=== PATIENT | female | born 1980 | race Caucasian/White ===

== ENCOUNTER 2024-12-08 00:26 | Inpatient (IN) | payer MEDICARE, OTHER, SELFPAY ==
[2024-12-07 19:56] VITALS: BP 141/88
[2024-12-07 20:33] LABS: ALT (SGPT) 173 U/L (0-35); AST (SGOT) 239 U/L (14-36); Albumin 3.4 g/dl (3.5-5.0); Alkaline Phosphatase 806 U/L (38-126); Blood Urea Nitrogen 11 mg/dl (7-17); Calcium 9.0 mg/dl (8.4-10.2); Carbon Dioxide 27 mmol/L (22-30); Chloride 98 mmol/L (98-107); Glucose 135 mg/dl (70-99); Potassium 4.6 mmol/L (3.5-5.1); Sodium 131 mmol/L (135-145); Total Protein 6.7 g/dl (6.3-8.2); eGFR > 60.00
[2024-12-07 20:42] LABS: Hematocrit 24.5 % (37.0-47.0); Hemoglobin 7.7 g/dL (12.0-16.0); Mean Corp Hgb Conc. 31.4 g/dL (33.0-37.0); Mean Corpuscular Volume 78.8 fL (81.0-99.0); Nucleated Red Blood Cells % 0 %; Platelet Count 694 10^3/uL (130-400); Red Cell Dist. Width 16.3 % (11.5-14.5)
[2024-12-07 20:58] LABS: Lipase 209 U/L (23-300)
[2024-12-07 21:01] VITALS: BMI 24.3
[2024-12-07 21:54] LABS: INR 0.98; PT 13.3 Sec (11.4-14.6)
[2024-12-07 22:58] LABS: Body Fluid Second Tech ASW
--- NOTE | 2024-12-07 23:05 | ED.GENMED ---
History of Present Illness
General
Chief Complaint: Abdominal Symptoms
Source: patient and spouse
Exam Limitations: none
Time Seen by Provider: 12/07/24 20:35
Nursing documentation reviewed up to this point in time: agreed with
History of Present Illness
History of Present Illness:
44-year-old female with history of metastatic breast cancer who presents to the emergency department for evaluation of abdominal pain. Patient reports that she had similar symptoms in July and was admitted with sepsis and had large-volume
paracentesis at that time. She says that she has not had reaccumulation of fluid or needed repeat paracentesis but over the past week developed increasing abdominal bloating and pain. No fever. No vomiting and in fact has had reasonable appetite.
No diarrhea. No urinary symptoms reported.
Review of Systems
Review of Systems
All Other Systems: ROS reviewed and negative except as documented in HPI and ROS
Constitutional: Denies fever
Respiratory: Denies trouble breathing
Cardiac: Denies chest pain
ABD/GI: Reports abdominal pain; Denies nausea, vomiting or diarrhea
: Denies flank pain
Musculoskeletal: Denies neck pain or back pain
Neurological: Denies headache
Phy Exam
Physical Exam
Physical Exam:
General: Awake, alert, oriented x3; no acute distress
Head: Normocephalic, atraumatic
Eyes: Conjunctiva normal, sclera anicteric
Throat: Airway intact
Neck: Trachea midline, no JVD
Lungs: Clear to auscultation bilaterally, no wheezing, rales, rhonchi
Heart: Tachycardia with regular rhythm, no murmurs, gallops, or rubs
Abd: Sof distended with positive fluid wave, diffusely tender to palpation
Neuro: Grossly intact
Extremities: Warm and well-perfused
Scores
Heart Failure Risk
Heart Failure Risk Score: Not Applicable
Heart Score for Chest Pain Patients
STEMI patient?: Not applicable
Withdrawal Assessment of Alcohol
Withdrawal Assessment Completed?: Not applicable
Sepsis
Sepsis Screening
Sepsis Assessment: Sepsis
Sepsis Screen
Sepsis Screen: Sepsis
Date: 12/08/24
Time: 00:23
Course
Orders/Labs/Results
Orders:
Orders
12/07/24 20:11
Complete Blood Count/With Diff Urgent
Comprehensive Metabolic Panel Urgent
Lipase Urgent
Comment: ADD ON
12/07/24 20:43
Add On- LAB Urgent
Tests Added?: lipase
12/07/24 21:30
Prothrombin Time Urgent
12/07/24 22:41
Body Fluid Albumin Routine
Fluid Source: Peritoneal (Ascites)
Date Specimen was Collected: 12/07/24
Time Specimen was Collected: 22:30
Body Fluid Amylase Routine
Fluid Source: Peritoneal (Ascites)
Date Specimen was Collected: 12/07/24
Time Specimen was Collected: 22:30
Body Fluid Cell Count Routine
What is the Body Fluid: peritoneal fluid
Date Specimen was Collected: 12/07/24
Time Specimen was Collected: 22:30
Comment: post procedure
Body Fluid LDH Routine
Fluid Source: Peritoneal (Ascites)
Date Specimen was Collected: 12/07/24
Time Specimen was Collected: 22:30
Body Fluid Protein Routine
Fluid Source: Peritoneal (Ascites)
Date Specimen was Collected: 12/07/24
Time Specimen was Collected: 22:30
Fluid Culture with Gram Stain Routine
DANIELITO Source: Peritoneal Fluid
Specimen Description:
Date Specimen was Collected: 12/07/24
Time Specimen was Collected: 22:30
Comment: Post Procedure
12/07/24 23:05
CefTRIAXone [Rocephin] 2,000 mg IV NOW STA
12/07/24 23:08
0.9% Sodium Chloride 1000 ml [Nss] 1,000 ml IV BOLUS
12/07/24 23:14
Bedside Cytology Routine
Date Specimen was Collected: 12/07/24
Source: Peritoneal Fluid
Clinical Impression: malignant ascites
12/07/24 23:16
Electrocardiogram (*1) Urgent
Reason for Study: Abdominal Pain
EKG- Treatment ONCE
Sterile Water [Sterile Water For Injection] 20 ml .ROUTE .STK-MED
12/07/24 23:30
Lactate Level [Lactic Acid] Urgent
Blood Culture Q30M
DANIELITO Source: Blood/Venous
Specimen Description:
Blood Culture Q30M
DANIELITO Source: Blood/Venous
Specimen Description:
12/07/24 23:53
Admit/Transfer Patient As Directed
Co-Sign Provider:
Level of Care: Inpatient admission
Assign to:: Medical/Surgical
Physician / Group: Mike
Diagnosis: Malignant Ascites
Reason for Hospitalization: suspected bacterial peritonitis
Expected length of stay greater than two midnights?: Yes
ELOS- Estimated Length of Stay in days: 2
I certify the patient meets the requirements for IP care: Yes
PRN Pain Medication Management As Directed
May give lesser potent ordered pain med per pt: Yes
preference::
Protocol:: Medication orders for pain may be administered in a
manner that supports deferring to patient preference
when the pt is:
- Requesting an ordered lesser potent pain medication.
Least to most potent pain medications are defined
as: acetaminophen < NSAID < tramadol < opioids
(morphine, oxycodone, hydromorphone).
- Requesting a lesser dose of the same medication IF
ORDERED.
- Requesting a less intrusive route of administration
if both routes are prescribed by the provider (PO <
IV).
12/07/24 23:55
Code Status As Directed
Resuscitation Status: Full Code
Abnormal Lab Results
12/07/24
20:11
WBC 15.1 H 10^3/uL
(4.8-10.8)
RBC 3.11 L 10^6/uL
(4.20-5.40)
Hgb 7.7 L g/dL
(12.0-16.0)
Hct 24.5 L %
(37.0-47.0)
MCV 78.8 L fL
(81.0-99.0)
MCH 24.8 L pg
(27.0-31.0)
MCHC 31.4 L g/dL
(33.0-37.0)
RDW 16.3 H %
(11.5-14.5)
Plt Count 694 H 10^3/uL
(130-400)
Abs Immat Gran (auto) 0.1 H 10^3/uL
(0-0.05)
Absolute Neuts (auto) 11.1 H 10^3/uL
(1.4-6.5)
Absolute Monos (auto) 1.8 H 10^3/uL
(0.1-0.6)
Lymphocytes % 12.7 L %
(20.5-51.1)
Monocytes % 12.0 H %
(1.7-9.3)
Sodium 131 L mmol/L
(135-145)
Glucose 135 H mg/dl
(70-99)
AST 239 H U/L
(14-36)
ALT 173 H U/L
(0-35)
Alkaline Phosphatase 806 H U/L
(38-126)
Albumin 3.4 L g/dl
(3.5-5.0)
12/07/24 20:11
12/07/24 20:11
Vital Signs
Initial and Last Documented VS:
Initial Vital Signs
Temp Pulse Resp BP Pulse Ox
36.8 C 134 18 141/88 98
12/07/24 19:56 12/07/24 19:56 12/07/24 19:56 12/07/24 19:56 12/07/24 19:56
Last Documented Vital Signs
Temp Pulse Resp BP Pulse Ox
36.8 C 121 17 141/88 99
12/07/24 19:56 12/07/24 21:00 12/07/24 21:00 12/07/24 19:56 12/07/24 23:05
Procedures
Incision/Drainage/Joint Aspiration
Left Lower Abdomen:
Anethesia: 1% Lidocaine
Preparation: cleaned with Betadine
Type of procedure: drain (paracentesis)
Nature of site: other (ascites--paracentesis from LLQ abdominal site)
How much fluid was obtained?: number in mls (2500)
Fluid description: straw colored
Treatment: antibiotics started and bandaid applied
Additional information:
Paracentesis performed under usual sterile technique, 2500 cc removed. Band-Aid applied. Fluid sent for Gram stain/culture, cytology, cell count. Cell count concerning for SBP and antibiotics initiated.
MDM/Problems Addressed
Differential Diagnosis Includes:
SBP, symptomatic ascites
MDM/Problems Addressed:
44-year-old female presents for evaluation of abdominal pain and distention�similar symptoms with SBP and sepsis in July. She is tachycardic but normotensive, afebrile. Diffusely tender and distended with positive fluid wave. Labs were sent off
including a CBC which showed leukocytosis to 15.1; she has anemia to 7.7 which she says is chronic. She has thrombocytosis as well. INR is acceptable. Chemistry no clinically significant abnormalities; LFTs abnormal in the setting of known
metastatic disease. Paracentesis performed for diagnostic and therapeutic purposes. 2.5 L drained as documented in procedure note, patient tolerated well. Patient actually had resolution of her abdominal pain after paracentesis. Abdomen soft and
minimally tender. Unfortunately PMN count and fluid greater than 250 and given tachycardia and leukocytosis with this finding overall concern for SBP. Will treat with IV antibiotics, continue IV fluids. Cultures of fluid and blood sent off.
Discussed case with hospitalist for admission.
Chronic conditions affecting care:
Metastatic cancer
*Pulse Oximetry
SaO2: 99
Oxygen Mode of Delivery: Room air
Patient hypoxic: no (99%)
*Critical Care Note
Total Time (30-74mins, 75-104mins- exclusive of procedures): Not Applicable
Data Reviewed
Source: patient and spouse
Patient Management
Discussion with other providers: Hospitalist (Discussed with hospitalist)
Escalation/DeEscalation of care consider admission/obs:
Admission indicated
ED Attending Note
-
Portions of this chart may have been created with voice recognition software.� Occasional wrong word or��sound alike� substitutions may have occurred due to the inherent limitations of voice recognition software.
Discharge Plan
Departure
Patient Disposition: Admit
Date of Disposition: 12/07/24
Time of Disposition: 23:17
Admit to doctor: Mike
Presentation/result/management discussed w/ accepting MD/DO: Hospitalist
Discharge Problem:
SBP (spontaneous bacterial peritonitis), Sepsis
Prescriptions:
No Action
dextroamphetamine-amphetamine [Adderall XR] 20 mg Capsule,Extended Release 24hr
20 mg PO DAILY
dextroamphetamine-amphetamine [Adderall] 15 mg Tablet
15 mg PO DAILY PRN (Reason: adhd)
letrozole 2.5 mg Tablet
2.5 mg PO DAILY
spironolactone 50 mg Tablet
50 mg PO TID
aripiprazole 5 mg Tablet
5 mg PO DAILY
buprenorphine-naloxone [Suboxone] 8-2 mg Film
1.5 film BUCCAL DAILY
sertraline 200 mg Capsule
200 mg PO DAILY
Truqap 200 mg Tablet
200 mg PO Q12H
Rx Instructions:
administer for 4 days, followed by 3 days off
metoprolol succinate 25 mg Tablet Extended Release 24 Hr
12.5 mg PO DAILY
Referrals:
Gurinder Nair DO [Family Provider, Internal Medicine]
Interventions
Interventions:
*Risk Screen - Suicide Last Done: 12/07/24 20:01
*General Assessment Last Done: 12/07/24 20:56
*Neglect/Abuse Screening Last Done: 12/07/24 20:01
*ED- Fall Risk Assessment Last Done: 12/07/24 20:56
*ED COVID-19 Vaccine History Last Done: 12/07/24 20:56
NL-Vihlwm-Wrzzysapag Assessment Last Done: 12/07/24 20:57
Discharge Date and Time
Print Language: [place]
--- NOTE | 2024-12-07 23:16 | HPS.HSE ---
Family Physician
-
Family Physician: Gurinder Nair
Chief Complaint
-
Ascites
History of Present Illness
Patient is a 44-year-old female with past medical history significant for metastatic breast cancer diagnosed as metastatic disease in 2019 and currently on suppressive chemotherapy who reports mets studies to the lung, liver, bile ducts status post
stent placement routine exchanges with next exchange pending on December 24, also complicated by episode of ascites status post paracentesis and liver biopsy in July with resultant episode of sepsis at [facility] who now presents to emergency
department with increasing abdominal distention and discomfort.
Patient at 1 point was placed on spironolactone for ascites which she uses intermittently. She states she has not used in several days. In the last few days she started noticing increasing abdominal girth and as well as abdominal discomfort. She
is unable to lie down without feeling uncomfortable and started noticing some rib discomfort. She denies any changes to the color of her skin urine or eyes. She denies any fevers or chills. She denies any nausea or vomiting. She denies having
any diarrhea. She denies any melena or hematochezia.
In the emergency department the patient had a blood pressure of 141/88, pulse rate of 120 and she was satting 99% on room air. She has a white count of 15.1, hemoglobin of 7.7 platelet of 694. Sodium was 131 otherwise electrolytes BUN and
creatinine were normal.
She has mild elevations in AST to 259 ALT 04/27/1932 and alk phos of 800. Total bilirubin was 0.8.
She is status post 2.5 L paracentesis in the ED. Is notable for WBC counts of 287.
Medical History
Past Medical History
Past Medical History: Reports Cancer (Breast cancer)
Past Surgical History: Reports Other (Left breast mastectomy)
Social History
Tobacco: Vaping
Alcohol: None
Drug: None
Family History
Family History: Not pertinent
Allergies / Home Medications
Allergies reflects when Allergies were last updated in [employer].
Home Medications with original date entered in [employer]
Allergy/Medication List:
Allergies
Allergy/AdvReac Type Severity Reaction Status Date / Time
No Known Allergies Allergy Verified 12/07/24 20:00
Home Medications
aripiprazole 5 mg tablet 5 mg PO DAILY 12/07/24
buprenorphine 8 mg-naloxone 2 mg sublingual film (Suboxone) 1.5 film buccal DAILY 12/07/24
capivasertib 200 mg tablet (Truqap) 200 mg PO Q12H 12/07/24
dextroamphetamine-amphetamine 15 mg tablet (Adderall) 15 mg PO DAILY PRN adhd 12/07/24
dextroamphetamine-amphetamine ER 20 mg 24hr capsule,extend release (Adderall XR) 20 mg PO DAILY 12/07/24
letrozole 2.5 mg tablet 2.5 mg PO DAILY 12/07/24
metoprolol succinate 25 mg tablet,extended release 24 hr 12.5 mg PO DAILY 12/07/24
sertraline 200 mg capsule 200 mg PO DAILY 12/07/24
spironolactone 50 mg tablet 50 mg PO TID 12/07/24
Review of Systems
-
History Source: Patient
Constitutional: Reports No Symptoms
EENT: Reports No Symptoms
Respiratory: Reports No Symptoms
Cardiac: Reports No Symptoms
Abdomen/GI: Reports Abdominal Pain and Other (Abdominal distention)
: Reports No Symptoms
Musculoskeletal: Reports No Symptoms
Skin: Reports No Symptoms
Neurological: Reports No Symptoms
Endocrine: Reports No Symptoms
Hematologic/Lymphatic: Reports No Symptoms
Psych: Reports No Symptoms
Physical Exam
Vital Signs
Vital Signs
Temp Pulse Resp BP Pulse Ox
98.2 F 121 17 141/88 99
12/07/24 19:56 12/07/24 21:00 12/07/24 21:00 12/07/24 19:56 12/07/24 23:05
Physical Exam
General: No Apparent Distress
HEENT: NormoCephalic, Anicteric, Moist mucous membranes and Atraumatic
Respiratory: Clear
Cardiac: S1/S2 and Tachycardia
Breast: Deferred by me
GI: Soft, Non Tender, Non Distended and Normal Bowel Sounds
Rectal: Deferred by Provider
Genito-urinary: Deferred by me
Musculoskeletal: No Clubbing, No Cyanosis and No Edema
Neuro: AO x 3 and Nonfocal/grossly intact
Hematologic/Lymphatic: No Lymphadenopathy
Psych: Calm
Laboratory Results
-
12/07/24 20:11
12/07/24 20:11
Laboratory Results
PT 13.3 Sec (11.4-14.6) 12/07/24 21:30
INR 0.98 12/07/24 21:30
Total Bilirubin 0.8 mg/dl (0.2-1.3) 12/07/24 20:11
AST 239 U/L (14-36) H 12/07/24 20:11
ALT 173 U/L (0-35) H 12/07/24 20:11
Alkaline Phosphatase 806 U/L (38-126) H 12/07/24 20:11
Lipase 209 U/L (23-300) 12/07/24 20:11
Data Reviewed
-
Lab Data: Labs Reviewed by me
Old Records: Reviewed
Impression/Plan
-
IMPRESSION:
44-year-old with past medical history of metastatic breast cancer with mets to the lungs liver and bile ducts, complicated by history of ascites status post prior paracentesis in July complicated by or associated with sepsis at that time ([facility] and has been hospitalized at [facility]) presenting with abdominal discomfort and distention and found to have recurrence of her ascites. Although afebrile she has leukocytosis. Last 2 was 131. She has moderate elevations in AST
and significant elevation in alk phos with normal bilirubin. She is status post 2.5 L paracentesis with significant improvement in her symptoms.
PLAN:
Recurrent ascites -suspect ascites is secondary to peritoneal mets (has been found to have malignant cells in the previous paracentesis) evidence of secondary to portal hypertension. No known history of portal hypertension, cirrhosis, portal vein
or hepatic vein thrombosis. He has biliary disease status post stenting with 2 stent exchange planned for December 24.
-Admit to [facility]
-Initial ascitic fluid shows a WBC count of 287/microL, straw colored fluid. The ANC = 22 /microL which is non-diagnostic for SBP or secondary bacterial peritonitis and sbp is unlikely in the absence of cirrhosis.
- sending for cytology
- 2.5 L paracentesis, no need for albumin
- given prior hx of sepsis after paracentesis, blood cx sent, fluid cx pending. started IV ceftriaxone
- pain control and antiemetics
- restart her spironolactone 50 daily for now
- free water restriction
Breast Ca - On Truqap 200 q 2 wed-sat, off for 3 days. Letrozole 2.5 daily
Behavioral/pain
- conitnue abilify and adderal
- continue suboxone
Anemia - ACD and malignancy. No hx of bleeding. No known shilpa
- check iron panel
- type and screen with am labs
Hyponatremia
- free water restriction as above
DVT PPX - lovenox sq
Code status - Full code
[2024-12-07] MEDS: NSS 1000 IV (23:30)
[2024-12-07] MEDS: ROCEPHIN 2000 MG IV (23:30)
[2024-12-08] VITALS (8 sets, daily range): BP systolic 100–128; BP diastolic 63–76; BMI 23.3
[2024-12-08] MEDS: NICODERM TRANSDERMAL 14 MG TRANSDERM ×2 (02:34→09:04)
[2024-12-08] MEDS: TOPROL XL 12.5 MG PO ×2 (03:09→17:16)
[2024-12-08] MEDS: ZOLOFT 200 MG PO (09:04)
[2024-12-08] MEDS: FEMARA 2.5 MG PO (09:04)
[2024-12-08] MEDS: ABILIFY 5 MG PO (09:04)
[2024-12-08] MEDS: ALDACTONE 50 MG PO (09:04)
[2024-12-08] MEDS: SUBUTEX 12 MG SL (09:05)
[2024-12-08 09:29] LABS: Hematocrit 21.1 % (37.0-47.0); Hemoglobin 6.7 g/dL (12.0-16.0); Mean Corp Hgb Conc. 31.8 g/dL (33.0-37.0); Mean Corpuscular Volume 78.4 fL (81.0-99.0); Platelet Count 654 10^3/uL (130-400); Red Cell Dist. Width 15.9 % (11.5-14.5)
[2024-12-08 09:32] LABS: ALT (SGPT) 200 U/L (0-35); AST (SGOT) 263 U/L (14-36); Albumin 3.1 g/dl (3.5-5.0); Alkaline Phosphatase 720 U/L (38-126); Blood Urea Nitrogen 7 mg/dl (7-17); Calcium 8.4 mg/dl (8.4-10.2); Carbon Dioxide 24 mmol/L (22-30); Chloride 97 mmol/L (98-107); Estimated Creatinine Clearance 103 ml/min; Glucose 131 mg/dl (70-99); Iron 22 ug/dl (37-170); Potassium 4.8 mmol/L (3.5-5.1); Sodium 127 mmol/L (135-145); Total Protein 6.0 g/dl (6.3-8.2); eGFR > 60.00
[2024-12-08 09:42] LABS: Total Iron Binding Capacity 340 ug/dl (265-497)
--- NOTE | 2024-12-08 09:49 | CM ---
Chart reviewed. Met with patient bedside. Pt lives with partner and son in a multi-level apartment. There are 4 steps to the entrance to the home. BR is on the 2nd floor.No history of HC or SNF. Has grab bars in shower. No insecurities identified.
Pt is independent with ADLs.
Plan: Home no needs
--- NOTE | 2024-12-08 10:06 | CM ---
Addendum entered by Ophelia Parisi 12/08/24 10:24:
IA completed
Addendum entered by Ophelia Parisi 12/08/24 10:19:
PCP; Gurinder Nair
Rx: [facility]
Original Note:
Pt lives with partner and son in a multi-level apartment. There are 4 steps to the entrance to the home. BR is on the 2nd floor. No history of HC or SNF. Pt is independent with ADLs.
Plan: home no needs
[2024-12-08] MEDS: LOPRESSOR 2.5 MG IV (10:31)
[2024-12-08 10:40] LABS: Urine Character Clear (Clear)
[2024-12-08 10:50] LABS: Urine Red Blood Cell None Seen /HPF (0-2); Urine Squamous Cell 0-2 /LPF (Few); Urine White Cell 0-2 /HPF (0-5)
[2024-12-08] MEDS: PROTONIX IV 40 MG IV ×2 (11:32→20:20)
[2024-12-08] MEDS: TYLENOL 650 MG PO (11:32)
[2024-12-08] MEDS: NSS (PRESERVATIVE FREE) 10 ML IV ×2 (11:33→20:19)
--- NOTE | 2024-12-08 12:35 | W.PN.HOSP.TC ---
Today's Communication/Plan
-
Monitor vitals
See plan
Transfuse 1 unit PRBC and monitor
GI evaluation
PPI
Continue ceftriaxone for now
Follow-up paracentesis studies
Might need further paracentesis
Request records
Assessment / Plan
Assessment / Plan
General: No Apparent Distress
HEENT: NormoCephalic, Anicteric
Respiratory: Clear
Cardiac: S1/S2 and Tachycardia
GI: Soft, Non Tender, Distended and Normal Bowel Sounds
Musculoskeletal: No Edema
Neuro: AO x 3 and Nonfocal/grossly intact
Psych: Calm
Recurrent ascites -suspect ascites is secondary to peritoneal mets (has been found to have malignant cells in the previous paracentesis) evidence of secondary to portal hypertension. No known history of portal hypertension, cirrhosis, portal vein
or hepatic vein thrombosis. has biliary disease status post stenting with 2 stent exchange planned for December 24.
-Initial ascitic fluid shows a WBC count of 287/microL, straw colored fluid. The ANC = 22 /microL which is non-diagnostic for SBP or secondary bacterial peritonitis and sbp is unlikely
- s/p 2.5 L paracentesis, no need for albumin
If develops significant fluid again then will need IR consult for para
- given prior hx of sepsis after paracentesis, blood cx sent, fluid cx pending. started IV ceftriaxone
- pain control and antiemetics
- restart her spironolactone 50 daily for now
- free water restriction
Metastatic Breast Ca - On Truqap 200 q 2 wed-sat, off for 3 days. Letrozole 2.5 daily
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
Secondary malignant neoplasm of right lung
Per patient mets to lungs, liver
Follows up with oncology at [facility], requested records
Anemia -likely multifactorial secondary to GI bleed with underlying malignancy
Hemoglobin 11.7 in October, now 6.7 today
Check heme test stool, per patient dark BM at home
Start PPI
GI evaluation
Transfuse 1 unit PRBC
Adjustment disorder with depressed mood/pain
- conitnue abilify and adderal
- continue suboxone
Hyponatremia
- free water restriction as above
Continue to monitor sodium
Urine and serum studies
Sinus tachycardia
Continue metoprolol
Monitor
DVT PPX - hold lovenox; SCD's
Code status - Full code
Total Critical Care Time__51___ minutes. I was immediately available to the patient and staff. I personally examined, reviewed labs, diagnostic images/reports, interpretations, treatment plans, discussed patient care with other providers and
family or caregivers (if patient is unable to make decisions), entered orders as appropriate and documented the medical record.
Anticipated Discharge: > 48 hours
Subjective/Interval History
-
Date of Service: December 08, 2024
denies nausea
Objective Data
-
Labs:
Laboratory Results
12/08/24
08:44
WBC 15.8 H
Hgb 6.7 L*
Hct 21.1 L
Plt Count 654 H
Sodium 127 L
Potassium 4.8
Chloride 97 L
Carbon Dioxide 24
BUN 7
Creatinine 0.6
Glucose 131 H
Calcium 8.4
Total Bilirubin 0.7
AST 263 H
ALT 200 H
Alkaline Phosphatase 720 H
Vital Signs:
Vital Signs
Temp Pulse Resp BP Pulse Ox
99.4 F 120 18 111/66 95
12/08/24 11:00 12/08/24 11:00 12/08/24 11:00 12/08/24 11:00 12/08/24 11:00
I&O
12/07/24 12/08/24 12/09/24
06:59 06:59 06:59
Intake Total 480 / 480
Output Total 2500 / 2500
Balance -2019 / -2019
--- NOTE | 2024-12-08 12:36 | CON.GI ---
Consultation
-
Date/Time Consultation Requested: 12/08/24
Date/Time Consultation Performed: 12/08/24
Requesting Provider:
Performing Provider:
Reason for Consultation: Abdominal pain
Medical History
Chief Complaint / HPI
Chief Complaint: Abdominal pain
History of Present Illness:
44-year-old female with history of metastatic breast cancer diagnosed in 2019, had left mastectomy, also noted to have mets to the liver, bile ducts, lungs etc usually followed at [facility]-Dr. Nair currently on Trucal 2/day, 4 days on and 3
days off, femara daily, h/o CBD stents-November [address] Mayes at [place], history of ascites and paracentesis-July 2024, at [facility] coming in with abdominal pain and distention.
Patient reports that she has had paracentesis twice in July, was placed on Aldactone 25 mg 3 times a day through Dr. Thompson her oncologist, was taking it maybe 3 weeks in a month only when she gets bloated. In the last week and a half, her abdominal
distention was worse and was asked to increase the Aldactone to 50 mg 3 times a day which she only took for 3 days and did not take it this week now coming in with abdominal pain and distention. She reports having about 2-1/2 L removed on
paracentesis yesterday here. She did feel better in terms of the abdominal pain but today she feels like it reaccumulated pretty quickly and feels uncomfortable and bloated. No nausea or vomiting. No heartburn or trouble swallowing. Bowel
pattern is 1 bowel movement every other day, small stool which is hard, she does push and strain with incomplete evacuation. She takes milk of magnesia as needed. No blood in the stool or black stool. She has been taking oral iron as well. She
reports that she got Lasix when she was admitted at [facility] in July but not after. Appetite has been fine and weight is stable. Never had an upper endoscopy or colonoscopy.
She vapes daily in the last 1 year, prior to that she was a smoker. Does not drink alcohol.
Reports some shortness of breath on exertion , no fevers or chills.
Labs show white count of 15.8, hemoglobin of 6.7, MCV of 78.4, platelets of 654.
INR of 0.98, sodium of 127, total bilirubin of 0.7 with direct of 0.4, AST 263, ALT 200, alkaline phosphatase 720, albumin 3.1, lipase 2 9.
12/07/24 Ascitic fluid Shows white count of 287 with 7.6 PMNs, total protein less than 2.0, fluid albumin less than 1.0, fluid amylase of 41. SAAG-2.1. CYTOLOGY NOT SENT
No evidence of SBP
PET scan 07/18/2024 showing nodules in the lung, numerous hypermetabolic lesions throughout the liver and large hypermetabolic lesion within central liver increased in size compared to prior PET scan, numerous additional hypermetabolic lesions
throughout the left and right lobes of the liver, four biliary stents present with associated mild pneumobilia, mild splenomegaly and mild intra-abdominal ascites at that time.
Past Medical History
Past Medical History: Other (History of metastatic breast cancer)
Past Surgical History: Other (Left mastectomy)
Social History
Tobacco: Vaping
Alcohol: None
Family History
Family History: Reviewed & Not Pertinent
Allergies / Home Medications
Allergy/AdvReac Type Severity Reaction Status Date / Time
No Known Allergies Allergy Verified 12/07/24 20:00
�Medication �Instructions �Recorded
aripiprazole 5 mg tablet 5 mg PO DAILY 12/07/24
buprenorphine 8 mg-naloxone 2 mg 1.5 film buccal DAILY 12/07/24
sublingual film (Suboxone)
capivasertib 200 mg tablet (Truqap) 200 mg PO Q12H 12/07/24
dextroamphetamine-amphetamine 15 15 mg PO DAILY PRN adhd 12/07/24
mg tablet (Adderall)
dextroamphetamine-amphetamine ER 20 mg PO DAILY 12/07/24
20 mg 24hr capsule,extend release
(Adderall XR)
letrozole 2.5 mg tablet 2.5 mg PO DAILY 12/07/24
metoprolol succinate 25 mg 12.5 mg PO DAILY 12/07/24
tablet,extended release 24 hr
sertraline 200 mg capsule 200 mg PO DAILY 12/07/24
spironolactone 50 mg tablet 50 mg PO TID 12/07/24
Review of Systems
-
All other systems: A 12 pt ROS was Negative except as stated above in HPI
Vital Signs
Temp Pulse Resp BP Pulse Ox
99.4 F 120 18 111/66 95
12/08/24 11:00 12/08/24 11:00 12/08/24 11:00 12/08/24 11:00 12/08/24 11:00
Physical Exam
Exam
GI: Soft, Non Distended and Distended
Results
WBC 15.8 10^3/uL (4.8-10.8) H 12/08/24 08:44
Hgb 6.7 g/dL (12.0-16.0) L* 12/08/24 08:44
Hct 21.1 % (37.0-47.0) L 12/08/24 08:44
MCV 78.4 fL (81.0-99.0) L 12/08/24 08:44
Plt Count 654 10^3/uL (130-400) H 12/08/24 08:44
Absolute Neuts (auto) 11.1 10^3/uL (1.4-6.5) H 12/07/24 20:11
PT 13.3 Sec (11.4-14.6) 12/07/24 21:30
INR 0.98 12/07/24 21:30
Sodium 127 mmol/L (135-145) L 12/08/24 08:44
Potassium 4.8 mmol/L (3.5-5.1) 12/08/24 08:44
Chloride 97 mmol/L (98-107) L 12/08/24 08:44
Carbon Dioxide 24 mmol/L (22-30) 12/08/24 08:44
BUN 7 mg/dl (7-17) 12/08/24 08:44
Creatinine 0.6 mg/dL (0.6-1.0) 12/08/24 08:44
Calcium 8.4 mg/dl (8.4-10.2) 12/08/24 08:44
Total Bilirubin 0.7 mg/dl (0.2-1.3) 12/08/24 08:44
AST 263 U/L (14-36) H 12/08/24 08:44
ALT 200 U/L (0-35) H 12/08/24 08:44
Alkaline Phosphatase 720 U/L (38-126) H 12/08/24 08:44
Lipase 209 U/L (23-300) 12/07/24 20:11
Diagnostic Image Results:
Prior GI Procedures:
EGD:
Colonoscopy:
Assessment / Plan
-
44-year-old female with history of metastatic breast cancer with extensive mets in the liver, noted on PET scan in June 2024, biliary stents noted as well now presenting with abdominal pain and increased abdominal girth, ascitic fluid analysis
without any SBP, SAAG more than 2.1 suggesting portal hypertensive etiology for ascites. No evidence of jaundice. History of biliary duct stenting, 4 stents placed in the bile ducts in November [address] Mayes. Has another appointment end of
November now.
- Abdominal discomfort and abdominal ascites with history of extensive liver mets
Currently not on any diuretics
Will check abdominal ultrasound with Doppler
Ascitic fluid reaccumulated, will put in for paracentesis tomorrow and will check cytology as well
Will get records to review from previous workup
-Anemia likely related to underlying malignancy
Received 1 unit of packed red blood cell transfusion today
Monitor H&H and transfuse as needed
- Hyponatremia noted, replete electrolytes per primary team
Diuretics on hold due to hyponatremia. Once electrolytes corrected, we will have to put her back on the diuretics.
- Elevated LFTs likely related to metastatic liver disease but total bilirubin within normal range, suggesting no biliary ductal compression at this time
will follow-up on the imaging as well
-Leukocytosis without fevers
- Constipation, will start Colace 2 tablets daily for now.
-
-
Thank you for consultation and allowing me to participate in the patient's care. Please call the investigation division lieutenant GI physician during the after hours with any questions or concerns.
[2024-12-08] MEDS: COLACE 100 MG PO (20:20)
[2024-12-08 20:42] LABS: Hematocrit 28.1 % (37.0-47.0); Hemoglobin 9.2 g/dL (12.0-16.0)
[2024-12-08] MEDS: STERILE WATER FOR INJECTION 20 ML IV (22:24)
[2024-12-08] MEDS: ROCEPHIN 2000 MG IV (22:24)
[2024-12-09] VITALS (8 sets, daily range): BP systolic 92–125; BP diastolic 69–80
[2024-12-09 06:43] LABS: Hematocrit 28.2 % (37.0-47.0); Hemoglobin 9.3 g/dL (12.0-16.0); Mean Corp Hgb Conc. 33.0 g/dL (33.0-37.0); Mean Corpuscular Volume 80.8 fL (81.0-99.0); Nucleated Red Blood Cells % 0.1 %; Platelet Count 555 10^3/uL (130-400); Red Cell Dist. Width 16.3 % (11.5-14.5)
[2024-12-09 07:10] LABS: ALT (SGPT) 267 U/L (0-35); AST (SGOT) 285 U/L (14-36); Albumin 3.1 g/dl (3.5-5.0); Alkaline Phosphatase 706 U/L (38-126); Blood Urea Nitrogen 8 mg/dl (7-17); Calcium 8.6 mg/dl (8.4-10.2); Carbon Dioxide 23 mmol/L (22-30); Chloride 100 mmol/L (98-107); Estimated Creatinine Clearance 103 ml/min; Glucose 150 mg/dl (70-99); Potassium 4.6 mmol/L (3.5-5.1); Sodium 129 mmol/L (135-145); Total Protein 6.0 g/dl (6.3-8.2); eGFR > 60.00
[2024-12-09] MEDS: COLACE 100 MG PO ×2 (10:10→19:37)
[2024-12-09] MEDS: FEMARA 2.5 MG PO (10:10)
[2024-12-09] MEDS: NICODERM TRANSDERMAL 14 MG TRANSDERM (10:11)
[2024-12-09] MEDS: PROTONIX IV 40 MG IV ×2 (10:11→19:39)
[2024-12-09] MEDS: NSS (PRESERVATIVE FREE) 10 ML IV ×2 (10:12→19:39)
[2024-12-09] MEDS: SUBUTEX 12 MG SL (10:16)
[2024-12-09] MEDS: ALDACTONE 50 MG PO (10:18)
[2024-12-09] MEDS: ABILIFY 5 MG PO (10:18)
[2024-12-09] MEDS: ZOLOFT 200 MG PO (10:18)
[2024-12-09 10:29] LABS: Body Fluid Second Tech US
--- NOTE | 2024-12-09 11:46 | W.PN.GI.CBS2 ---
Addendum entered and electronically signed by Maribel So MD 12/09/24 18:40:
I saw and examined the patient.
The PASSENGER CAR UPHOLSTERER APPRENTICE or PA's note was reviewed and I agree with the note.
Comment: Patient feels somewhat better after paracentesis today. No abdominal pain and tolerating diet.
About 2.2 L of ascitic fluid removed, no SBP. Cytology pending
As per patient, malignant ascites noted previously but has not needed recurrent paracentesis, last paracentesis prior to this admission was July 2024 at [facility].
Currently on Aldactone 50 mg daily. Given sodium is low, will need to be careful with giving diuretics. Hold off on Lasix for now.
If this is malignant ascites, will need oncology on board
Elevated total bilirubin noted today
Await abdominal ultrasound/Doppler
Will follow-up on the above
Original Note:
Today's Communication / Plan
-
Await para cytology and US Abd
Assessment / Plan
-
44-year-old female with history of metastatic breast cancer with extensive mets in the liver, noted on PET scan in June 2024, biliary stents noted as well now presenting with abdominal pain and increased abdominal girth, ascitic fluid analysis
without any SBP, SAAG more than 2.1 suggesting portal hypertensive etiology for ascites. No evidence of jaundice. History of biliary duct stenting, 4 stents placed in the bile ducts in November [address] Mayes. Has another appointment end of
November now. Has follow up with her Oncologist Dr. Nair this month as well.
- Abdominal discomfort and abdominal ascites with history of extensive liver mets
Currently not on any diuretics
Will check abdominal ultrasound with Doppler-> to be done later today
Ascitic fluid reaccumulated, s/p repeat paracentesis today 12/10/24 2.2 L cytology pending
Will get records to review from previous workup
--> per patient previous paracentesis at [facility] cytology + malignancy, also Liver Bx, +metastatic disease
-Anemia likely related to underlying malignancy
Received 1 unit of packed red blood cell transfusion 12/09/24 with appropriate response, Hgb stable 9.3
Monitor H&H and transfuse as needed
- Hyponatremia noted, replete electrolytes per primary team
Diuretics on hold due to hyponatremia. Once electrolytes corrected, we will have to put her back on the diuretics.
- Elevated LFTs likely related to metastatic liver disease
Increasing T Bili, will await US Abd and trend.
Hx of biliary stents with Dr. Mayes at [facility]
-Leukocytosis without fevers, worsening today, on Ceftriaxone no signs SBP.
- Constipation, will continue Colace 2 tablets daily for now.
Subjective
Subjective
Date of Service: December 09, 2024
Patient with improvement of abdominal pain status post paracentesis 2.2 L this morning. Patient already had paracentesis 2.4 L on Monday. Awaiting abdominal ultrasound with Doppler later today. No bowel movement in 4 days. On Colace.
Leukocytosis increasing. Increased T bili, will fractionate. Slightly increased AST/ALT. Alk Phos decreased from yesterday. Afebrile.
Objective
Data Reviewed
Laboratory Data:
Laboratory Results
12/09/24 06:18
12/09/24 06:18
Laboratory Results
PT 13.3 Sec (11.4-14.6) 12/07/24 21:30
INR 0.98 12/07/24 21:30
Total Bilirubin 1.6 mg/dl (0.2-1.3) H 12/09/24 06:18
AST 285 U/L (14-36) H 12/09/24 06:18
ALT 267 U/L (0-35) H 12/09/24 06:18
Alkaline Phosphatase 706 U/L (38-126) H 12/09/24 06:18
Lipase 209 U/L (23-300) 12/07/24 20:11
Vital Signs and I&O:
Vital Signs
Temp Pulse Resp BP Pulse Ox
97.8 F 109 18 109/70 100
12/09/24 11:05 12/09/24 11:05 12/09/24 11:05 12/09/24 11:05 12/09/24 11:05
I&O
12/08/24 12/09/24 12/10/24
06:59 06:59 06:59
Intake Total 480 / 480 970 / 970
Output Total 2500 / 2500
Balance -2019 / -2019 970 / 970
Physical Exam
Physical Exam
HEENT: Anicteric
Cardiology: Normal Sinus Rhythm (tachy 100)
Pulmonary: Clear (anterior)
GI: Soft, Non Distended, Non Tender and Normal Bowel Sounds
Neuro: Non Focal
--- NOTE | 2024-12-09 11:58 | PTCARENOTE ---
Assumed care of pt from previous nurse. Pt denies pain. Pt went for a paracentesis, returned without issue. Pt call ohara is within reach, pt rings raghu. will cont to monitor.
[2024-12-09] MEDS: DUPHALAC/CHRONULAC 20 GRAMS PO ×3 (13:40→21:43)
--- NOTE | 2024-12-09 13:46 | W.PN.HOSP.TC ---
Today's Communication/Plan
-
Worsening leukocytosis and bilirubin
antibiotics
Lactulose
Assessment / Plan
Assessment / Plan
Recurrent ascites
Transaminitis and hyperbilirubinemia
Suspect ascites is secondary to peritoneal/hepatic mets (has been found to have malignant cells in the previous paracentesis) evidence of secondary to portal hypertension.
No known history of portal hypertension, cirrhosis, portal vein or hepatic vein thrombosis.
Has biliary disease status post stenting with 2 stent exchange planned for December 24. Belkis moon has gone up on 12/09, abdominal Doppler pending, concern for stent blockage, right may require stent exchange sooner
In ED, s/p 2.5 L paracentesis
Initial ascitic fluid shows a WBC count of 287/microL, straw colored fluid. The ANC = 22 /microL which is non-diagnostic for SBP or secondary bacterial peritonitis and sbp is unlikely. Fluid cx no growth to date.
Empiric ceftriaxone started. Blood culture no growth to date
Repeat para 12/09, 2.2 L removed. Follow-up fluid culture. Noted worsening leukocytosis, patient is afebrile.
- pain control and antiemetics
- spironolactone 50 daily for now
- Lactulose 3 times daily as patient has been constipated
- free water restriction
Appreciate GI eval
Metastatic Breast Ca
On Truqap 200 q 2 mon-sat, off for 3 days. Letrozole 2.5 daily
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
Secondary malignant neoplasm of right lung
Reviewed PET scan from spring
Follows up with oncology at [facility], requested records
Anemia
likely 2/2 underlying malignancy
Hemoglobin 11.7 in October, down to 6.7
Transfused 1 unit PRBC improved to 9.3
Adjustment disorder with depressed mood/pain
- conitnue abilify and adderal
- continue suboxone
Hyponatremia
Mild, hypervolemic, urine sodium less than 5
- free water restriction as above
Continue to monitor sodium
Holding off diuretic
Sinus tachycardia
Continue metoprolol
Monitor
DVT PPX -Lovenox
Code status - Full code
Anticipated Discharge: > 48 hours
Subjective/Interval History
-
Date of Service: December 09, 2024
Patient underwent paracentesis this morning and had 2.2 L removed. Denies acute issues
Objective Data
-
Labs:
Laboratory Results
12/09/24
06:18
WBC 21.9 H
Hgb 9.3 L
Hct 28.2 L
Plt Count 555 H
Sodium 129 L
Potassium 4.6
Chloride 100
Carbon Dioxide 23
BUN 8
Creatinine 0.6
Glucose 150 H
Calcium 8.6
Total Bilirubin 1.6 H
AST 285 H
ALT 267 H
Alkaline Phosphatase 706 H
Vital Signs:
Vital Signs
Temp Pulse Resp BP Pulse Ox
97.8 F 109 18 109/70 100
12/09/24 11:05 12/09/24 11:05 12/09/24 11:05 12/09/24 11:05 12/09/24 11:05
I&O
12/08/24 12/09/24 12/10/24
06:59 06:59 06:59
Intake Total 480 / 480 970 / 970
Output Total 2500 / 2500
Balance -2019 / 970 / 970
Review of Systems
-
All other systems: Reviewed and negative
Physical Exam
-
General: No Apparent Distress
HEENT: Moist Mucous Membranes and PERRLA
Respiratory: Clear to Auscultation; Negative Wheezes, Rales or Rhonchi
Cardiac: Regular Rhythm and S1/S2; Negative Murmur, Rub or Gallop
GI: Nontender, Normal Bowel Sounds and Distended
Musculoskeletal: No Clubbing and No Cyanosis
Skin: Warm and Dry; Negative Rash, Ulcers or Lesions
Neuro: Awake and AO x 3
Psych: Calm
Data Reviewed
-
Labs: Labs Reviewed by me and Discussed with Patient
[2024-12-09] MEDS: ZOFRAN 4 MG IV (14:20)
--- NOTE | 2024-12-09 16:05 | CM ---
CM reviewed chart, care ongoing.
GI following. Patient remains on IV antibiotics.
CM will continue to follow for all discharge planning needs.
Plan; home with family
[2024-12-09] MEDS: LOVENOX 40 MG SC (17:24)
[2024-12-09] MEDS: TOPROL XL 12.5 MG PO (17:24)
[2024-12-09] MEDS: LOPRESSOR 12.5 MG PO (21:58)
[2024-12-09] MEDS: ROCEPHIN 2000 MG IV (22:01)
[2024-12-09] MEDS: STERILE WATER FOR INJECTION 20 ML IV (22:02)
[2024-12-10 03:31] VITALS: BP 125/83
--- NOTE | 2024-12-10 06:52 | W.PN.UPDATE ---
Update Note
Progress Note Update
HR 120's sustaining. BP 120's/ 70's. HR noted to be in 130's with ambulation. Received 12.5mg Metoprolol at 1800. Will give another dose of Metoprolol. HR 100-110. RR. Patient without any new complaints.
[2024-12-10 07:10] VITALS: BP 119/76
[2024-12-10 08:52] LABS: Hematocrit 28.1 % (37.0-47.0); Hemoglobin 9.2 g/dL (12.0-16.0); Mean Corp Hgb Conc. 32.7 g/dL (33.0-37.0); Mean Corpuscular Volume 79.6 fL (81.0-99.0); Platelet Count 578 10^3/uL (130-400); Red Cell Dist. Width 17.1 % (11.5-14.5)
[2024-12-10] MEDS: NICODERM TRANSDERMAL 14 MG TRANSDERM (08:53)
[2024-12-10] MEDS: COLACE 100 MG PO ×2 (08:54→20:49)
[2024-12-10] MEDS: FEMARA 2.5 MG PO (08:54)
[2024-12-10] MEDS: NSS (PRESERVATIVE FREE) 10 ML IV ×2 (08:55→20:50)
[2024-12-10] MEDS: PROTONIX IV 40 MG IV ×2 (08:55→20:50)
[2024-12-10] MEDS: DUPHALAC/CHRONULAC 20 GRAMS PO ×3 (08:58→22:30)
[2024-12-10] MEDS: FLUSH (NSS) 2 FLUSH IV (08:58)
[2024-12-10] MEDS: SUBUTEX 12 MG SL (09:05)
[2024-12-10] MEDS: ABILIFY 5 MG PO (09:06)
[2024-12-10] MEDS: ZOLOFT 200 MG PO (09:06)
[2024-12-10] MEDS: ALDACTONE 50 MG PO (09:06)
--- NOTE | 2024-12-10 09:30 | W.PN.GI.CBS2 ---
Addendum entered and electronically signed by Oleksandr Wyman MD 12/10/24 14:28:
I saw and examined the patient.
The COMPUTER NETWORK ENGINEER or PA's note was reviewed and I agree with the note.
Comment: Pt had BM overnight and feels less bloated. Had not had BM for several days
ABD soft distended, nontender
REC:
Try dulcolax suppository.
Can also increase lactulose as needed, currently TID
No paracentesis today
Consider increasing diuretics, on aldactone 50mg daily if renal function stable
LFTs stable, bili improved today
Original Note:
Today's Communication / Plan
-
Await cytology
Consult Dr. Ashley, portal vein thrombus
Await labs
Assessment / Plan
-
44-year-old female with history of metastatic breast cancer with extensive mets in the liver, noted on PET scan in June 2024, biliary stents noted as well now presenting with abdominal pain and increased abdominal girth, ascitic fluid analysis
without any SBP, SAAG more than 2.1 suggesting portal hypertensive etiology for ascites. No evidence of jaundice. History of biliary duct stenting, 4 stents placed in the bile ducts in November [address] Mayes. Has another appointment end of
November now. Has follow up with her Oncologist Dr. Nair this month as well.
- Abdominal discomfort and abdominal ascites with history of extensive liver mets
-Ascitic fluid reaccumulated, s/p repeat paracentesis today 12/10/24 2.2 L cytology pending
Will get records to review from previous workup
--> per patient previous paracentesis at [facility] cytology + malignancy, also Liver Bx, +metastatic disease
On Aldactone 50 mg daily
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 Appears to be hepatofugal flow within the left portal vein. Cirrhotic morphology of liver. Known liver masses not well-evaluated.
Stent present within the CBD without evidence of biliary ductal dilatation.
- Consult hematology given portal vein thrombus, discussed with Dr. Ashley.
-Anemia likely related to underlying malignancy
Received 1 unit of packed red blood cell transfusion 12/09/24 with appropriate response, Hgb stable 9.3
Monitor H&H and transfuse as needed
- Hyponatremia noted, replete electrolytes per primary team
On Aldactone only
- Elevated LFTs likely related to metastatic liver disease
Increasing T Bili, await CMP today
Hx of biliary stents with Dr. Mayes at [facility]-> has appointment end of November
Current ultrasound shows stent present within the CBD without evidence of biliary ductal dilatation.
-Leukocytosis without fevers, worsening today, on Ceftriaxone 2 g daily, no signs SBP.
- Constipation-> resolved on Colace and lactulose, would back off on lactulose
Subjective
Subjective
Date of Service: December 10, 2024
Patient states 'I finally had a bowel movement last night'. Required Colace twice a day. She was also given doses of lactulose starting yesterday as well (2 doses) Was constipated and no bowel movement since last Monday. States that she finally
started evacuating her bowels and now with some loose stool. She states that she finally got a 'good night sleep'. Tolerating diet without any difficulty. Still awaiting cytology from second paracentesis. White count does continue to rise.
Patient is afebrile. She continues on ceftriaxone daily (2000 mg) ultrasound of the abdomen was obtained yesterday. This shows occlusion of the main portal vein with thrombus extended into the right portal vein. There appears to be hepatofugal
flow within the left portal vein. Cirrhotic morphology of the liver. The known liver masses are not well-evaluated. Stent present within the common bile duct without evidence of biliary ductal dilatation. Will obtain consult from hematology
given the findings in main portal vein. Discussed with patient. She follows with [facility] in [place] (Dr. Gurinder Thompson). [place] text sent to Dr. Janice Ashley. Pending CMP from this morning.
Objective
Data Reviewed
Laboratory Data:
Laboratory Results
12/10/24 07:37
Laboratory Results
PT 13.3 Sec (11.4-14.6) 12/07/24 21:30
INR 0.98 12/07/24 21:30
Total Bilirubin 1.6 mg/dl (0.2-1.3) H 12/09/24 06:18
AST 285 U/L (14-36) H 12/09/24 06:18
ALT 267 U/L (0-35) H 12/09/24 06:18
Alkaline Phosphatase 706 U/L (38-126) H 12/09/24 06:18
Lipase 209 U/L (23-300) 12/07/24 20:11
Vital Signs and I&O:
Vital Signs
Temp Pulse Resp BP Pulse Ox
98.4 F 107 16 119/76 99
12/10/24 07:10 12/10/24 07:10 12/10/24 07:10 12/10/24 07:10 12/10/24 07:10
I&O
12/09/24 12/10/24 12/11/24
06:59 06:59 06:59
Intake Total 970 / 970 1440 / 1440
Balance 970 / 970 1440 / 1440
Physical Exam
Physical Exam
HEENT: Anicteric
Cardiology: Normal Sinus Rhythm
Pulmonary: Clear
GI: Soft, Distended, Non Tender and Normal Bowel Sounds
Extremities: No Edema
Neuro: Non Focal
[2024-12-10 09:41] LABS: ALT (SGPT) 282 U/L (0-35); AST (SGOT) 217 U/L (14-36); Albumin 3.1 g/dl (3.5-5.0); Alkaline Phosphatase 640 U/L (38-126); Blood Urea Nitrogen 11 mg/dl (7-17); Calcium 8.3 mg/dl (8.4-10.2); Carbon Dioxide 19 mmol/L (22-30); Chloride 95 mmol/L (98-107); Estimated Creatinine Clearance 89 ml/min; Glucose 123 mg/dl (70-99); Sodium 124 mmol/L (135-145); Total Protein 6.0 g/dl (6.3-8.2); eGFR > 60.00
[2024-12-10 09:49] LABS: Potassium 4.8 mmol/L (3.5-5.1)
--- NOTE | 2024-12-10 11:02 | CON.ONC ---
Documented by User: JUN Schneider 12/10/24 11:59
Consultation
-
Date Consultation Requested: 12/10/24
Date Consultation Performed: 12/10/24
Requesting Provider: Tegan BARAHONA
Performing Provider: Dr. Janice Ashley
Reason for Consultation: metastatic breast cancer
Impression
Impression
metastatic breast cancer on Truqup and letrozole
Anemia
thrombocytosis
leukocytosis
elevated LFTs
hyponatremia
Plan
Plan
Truqap can commonly cause diarrhea, cutaneous AE, hyperglycemia, lymphopenia, leukopenia, neutropenia, anemia, elev triglycerides
check iron studies, folate, B12, retic, LDH, haptoglobin, and heme stool
Transfuse Hgb <7 or as needed for sxs anemia
symptoms support with antiemetics
pain management
smoking cessation
OP follow up with primary oncologist for ongoing management
Patient History
History of Present Illness
44yo F with metastatic breast cancer presented with abdominal pain and abdominal distention. 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 There appears to be hepatofugal
flow within the left portal vein. There is cirrhotic morphology of the liver. Stent present within the common bile duct without evidence of biliary duct dilation. She underwent a paracentesis for which 2250 cc of clear yellow ascitic fluid was
evacuated which improved her abdominal discomfort. Cytology was not sent.
In brief, this patient has metastatic breast cancer managed by Dr. Nair at [facility]. She is currently on Truqap and letrozole. She had CBD stents-November [address] Mayes at [place]. She underwent paracentesis and was placed on Aldactone
in July 2024 at [facility] for her ascites. Her most recent PET showed nodules in the lung, numerous hypermetabolic lesions throughout the liver and large hypermetabolic lesion within central liver increased in size compared to prior PET
scan, numerous additional hypermetabolic lesions throughout the left and right lobes of the liver, four biliary stents present with associated mild pneumobilia, mild splenomegaly and mild intra-abdominal ascites at that time.
Clinically, she denies fever, chills, cough, sob, chest pain, palpitations, nausea, vomiting, diarrhea, constipation, headaches, or neurological changes. She denies any overt bleeding or dark stools.
Initial Laboratory Tests
12/08/24 12/09/24
08:44 06:18
WBC 15.8 H
Hgb 6.7 L*
Hct 21.1 L
Plt Count 654 H
Sodium 129 L
Calcium 8.6
Total Bilirubin 1.6 H
Direct Bilirubin 1.0 H
AST 285 H
ALT 267 H
Alkaline Phosphatase 706 H
Past-Medical/Surgical History
PMH breast cancer
PSH mastectomy
Social vape, deneis significant ETOH or recreational drugs
Patient Medication
�Medication �Instructions �Recorded �Confirmed �Last Taken �Type
aripiprazole 5 mg tablet 5 mg PO DAILY Mental Health/Anxiety 12/07/24 12/07/24 Unknown History
buprenorphine 8 mg-naloxone 2 mg 1.5 film buccal DAILY Substance 12/07/24 12/07/24 Unknown History
sublingual film (Suboxone) abuse disorder
capivasertib 200 mg tablet (Truqap) 200 mg PO Q12H Cancer 12/07/24 12/07/24 Unknown History
dextroamphetamine-amphetamine 15 15 mg PO DAILY PRN adhd 12/07/24 12/07/24 Unknown History
mg tablet (Adderall)
dextroamphetamine-amphetamine ER 20 mg PO DAILY ADHD 12/07/24 12/07/24 Unknown History
20 mg 24hr capsule,extend release
(Adderall XR)
letrozole 2.5 mg tablet 2.5 mg PO DAILY Cancer 12/07/24 12/07/24 Unknown History
metoprolol succinate 25 mg 12.5 mg PO DAILY Blood Pressure 12/07/24 12/07/24 Unknown History
tablet,extended release 24 hr
sertraline 200 mg capsule 200 mg PO DAILY Depression 12/07/24 12/07/24 Unknown History
spironolactone 50 mg tablet 50 mg PO TID Fluid 12/07/24 12/07/24 Unknown History
Retention/Swelling
Active Medications
Generic Name Dose Route Start Last Admin
Trade Name Freq PRN Reason Stop Dose Admin
Acetaminophen 650 mg 12/08/24 01:49 12/08/24 11:32
Acetaminophen 325 Mg Tablet PO 01/05/25 01:48 650 mg
Q4HPRN PRN Administration
mild pain/ZENG/temp> 100.4F
Amphetamine/Dextroamphetamine 15 mg 12/08/24 01:49
Amphet Asp/Amphet/D-Amphet (Adderall) 15 Mg Tablet PO 12/22/24 01:48
DAILY PRN
ADHD
Aripiprazole 5 mg 12/08/24 08:00 12/10/24 09:06
Aripiprazole 5 Mg Tablet PO 01/05/25 07:59 5 mg
DAILY GLADYS Administration
Bisacodyl 10 mg 12/08/24 01:49
Bisacodyl 10 Mg Rectal Suppository RECTAL 01/05/25 01:48
[id number] PRN
constipation
Buprenorphine 12 mg 12/08/24 08:00 12/10/24 09:05
Buprenorphine 8 Mg Sl Tablet SL 01/05/25 07:59 12 mg
DAILY GLADYS Administration
Ceftriaxone Sodium 2,000 mg 12/08/24 23:00 12/09/24 22:01
Ceftriaxone 2,000 Mg/20 Ml Vial IV 2,000 mg
Q24H GLADYS Administration
Docusate Sodium 100 mg 12/08/24 20:00 12/10/24 08:54
Docusate Sodium 100 Mg Capsule PO 01/05/25 19:59 100 mg
BID GLADYS Administration
Enoxaparin Sodium 40 mg 12/08/24 18:00 12/09/24 17:24
Enoxaparin Sodium 40 Mg/0.4 Ml Syringe SC 01/05/25 17:59 40 mg
QPM GLADYS Administration
Heparin Sodium (Porcine) 500 unit 12/08/24 09:00 12/10/24 07:53
Heparin Flush Pf (100 Unit/Ml) 5 Ml Syringe IV 01/05/25 08:59 500 unit
PER PROTOCOL GLADYS Administration
Hydromorphone HCl 0.5 mg 12/08/24 01:49
Hydromorphone 0.5 Mg/0.5 Ml Syringe IV 12/22/24 01:48
Q4HPRN PRN
severe pain
Lactulose 20 grams 12/09/24 11:45 12/10/24 08:58
Lactulose Solution (20 Grams/30 Ml) 30 Ml Cup PO 01/06/25 11:44 20 grams
TID GLADYS Administration
Letrozole 2.5 mg 12/08/24 08:00 12/10/24 08:54
Letrozole 2.5 Mg (Non-Form) Tablet PO 01/05/25 07:59 2.5 mg
DAILY GLADYS Administration
Metoprolol Succinate 12.5 mg 12/08/24 18:00 12/09/24 17:24
Metoprolol 12.5 Mg Extended Release Dose (1/2 Of 25 Mg Xl Tablet) PO 01/05/25 17:59 12.5 mg
DAILY@1800 GLADYS Administration
Nicotine 14 mg 12/08/24 08:00 12/10/24 08:53
Nicotine 14 Mg Patch TRANSDERM 01/05/25 07:59 14 mg
DAILY GLADYS Administration
Capivasertib [Truqap 200 mg 12/08/24 01:49
] 200 Mg Tablet Po PO 01/05/25 01:48
Q12h Q12H GLADYS
Dextroamphetamine- 0 mg 12/08/24 08:00
Amphetamine [ PO 01/05/25 07:59
Adderall Xr] 20 Mg DAILY GLADYS
Capsule,Exten Po
Daily
Ondansetron HCl 4 mg 12/08/24 01:49 12/09/24 14:20
Ondansetron 4 Mg/2 Ml Vial IV 01/05/25 01:48 4 mg
Q6HPRN PRN Administration
nausea and vomiting
Pantoprazole Sodium 40 mg 12/08/24 11:00 12/10/24 08:55
Pantoprazole Sodium 40 Mg/10 Ml Vial IV 01/05/25 10:59 40 mg
BID GLADYS Administration
Polyethylene Glycol 17 grams 12/08/24 01:49
Polyethylene Glycol Powder 17 Grams Packet PO 01/05/25 01:48
DAILYPRN PRN
constipation
Senna/Docusate Sodium 1 tablet 12/08/24 01:49
Docusate W/Senna (Tammy-Colace) Tablet PO 01/05/25 01:48
BIDPRN PRN
constipation
Sertraline HCl 200 mg 12/08/24 08:00 12/10/24 09:06
Sertraline 100 Mg Tablet PO 01/05/25 07:59 200 mg
DAILY GLADYS Administration
Sodium Chloride 0 flush 12/08/24 02:00 12/10/24 08:58
Sodium Chloride 0.9% (Flush) Syringe IV 01/05/25 01:59 2 flush
PER PROTOCOL GLADYS Administration
Sodium Chloride 10 ml 12/08/24 11:00 12/10/24 08:55
Sodium Chloride 0.9% (Preservative Free) 10 Ml Vial IV 01/05/25 10:59 10 ml
BID GLADYS Administration
Spironolactone 50 mg 12/08/24 08:00 12/10/24 09:06
Spironolactone 50 Mg Tablet PO 01/05/25 07:59 50 mg
DAILY GLADYS Administration
Sterile Water 20 ml 12/08/24 23:00 12/09/24 22:02
Sterile Water For Injection 20 Ml Vial IV 01/05/25 22:59 20 ml
Q24H GLADYS Administration
Review of Systems
-
ROS is notable for HPI, otherwise negativer
Physical Exam
-
General: No Apparent Distress
HEENT: Moist Mucous Membranes; Negative Jaundice
Pulmonary: Other (unlabored)
GI: Distended
Extremities: Pulses Present
Skin: Warm
Labs
Lab Results
WBC 26.0 10^3/uL (4.8-10.8) H 12/10/24 07:37
RBC 3.53 10^6/uL (4.20-5.40) L 12/10/24 07:37
Hgb 9.2 g/dL (12.0-16.0) L 12/10/24 07:37
Hct 28.1 % (37.0-47.0) L 12/10/24 07:37
MCV 79.6 fL (81.0-99.0) L 12/10/24 07:37
MCH 26.1 pg (27.0-31.0) L 12/10/24 07:37
MCHC 32.7 g/dL (33.0-37.0) L 12/10/24 07:37
RDW 17.1 % (11.5-14.5) H 12/10/24 07:37
Plt Count 578 10^3/uL (130-400) H 12/10/24 07:37
MPV 9.8 fL (7.4-10.4) 12/10/24 07:37
Abs Immat Gran (auto) 0.2 10^3/uL (0-0.05) H 12/09/24 06:18
Absolute Neuts (auto) 16.8 10^3/uL (1.4-6.5) H 12/09/24 06:18
Absolute Lymphs (auto) 1.9 10^3/uL (1.2-3.4) 12/09/24 06:18
Absolute Monos (auto) 2.7 10^3/uL (0.1-0.6) H 12/09/24 06:18
Absolute Eos (auto) 0.1 10^3/uL (0-0.7) 12/09/24 06:18
Absolute Basos (auto) 0.1 10^3/uL (0-0.2) 12/09/24 06:18
Immature Gran % 1.1 % (0-0.5) H 12/09/24 06:18
Neutrophils % 76.8 % (42.2-75.2) H 12/09/24 06:18
Lymphocytes % 8.7 % (20.5-51.1) L 12/09/24 06:18
Monocytes % 12.3 % (1.7-9.3) H 12/09/24 06:18
Eosinophils % 0.6 % (0-6) 12/09/24 06:18
Basophils % 0.5 % (0-2) 12/09/24 06:18
Creatinine 0.7 mg/dL (0.6-1.0) 12/10/24 07:37
Vital Signs
Vital Signs
Temp Pulse Resp BP Pulse Ox
98.4 F 107 16 119/76 99
12/10/24 07:10 12/10/24 07:10 12/10/24 07:10 12/10/24 07:10 12/10/24 07:10

Documented by User: Janice Ashley MD 12/10/24 12:50
Impression
Impression
metastatic breast cancer on Truqup and letrozole (weakly ER+, Her2 neg)
Ascites
Portal vein thrombus
Anemia
thrombocytosis
leukocytosis
elevated LFTs
hyponatremia
Plan
Plan
Case d/w radiology -- ultrasound cannot differentiate between tumor thrombus and bland thrombus in the PV
Will obtain CT scan to evaluate further, and to assess status of her disease - clinical picture is concerning for progression, which we discussed
Will update [id number]
If bland thrombus, would start DOAC
Reviewed prior treatment history with Dr. Nair, she hasn't yet had sacituzumab, which would be my next choice
Truqap can commonly cause diarrhea, cutaneous AE, hyperglycemia, lymphopenia, leukopenia, neutropenia, anemia, elev triglycerides
check iron studies, folate, B12, retic, LDH, haptoglobin, and heme stool
Transfuse Hgb <7 or as needed for sxs anemia
symptoms support with antiemetics
pain management
smoking cessation
OP follow up with primary oncologist for ongoing management
Patient History
History of Present Illness
44yo F with metastatic breast cancer presented with abdominal pain and abdominal distention. 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 There appears to be hepatofugal
flow within the left portal vein. There is cirrhotic morphology of the liver. Stent present within the common bile duct without evidence of biliary duct dilation. She underwent a paracentesis for which 2250 cc of clear yellow ascitic fluid was
evacuated which improved her abdominal discomfort. Cytology was not sent.
In brief, this patient has metastatic breast cancer managed by Dr. Nair at [facility]. She is currently on Truqap and letrozole. She had CBD stents-November [address] Mayes at [place]. She underwent paracentesis and was placed on Aldactone
in July 2024 at [facility] for her ascites. Her ascites improved upon starting Truqap and letrozole for a few months. Her most recent PET in spring 2024 showed nodules in the lung, numerous hypermetabolic lesions throughout the liver and
large hypermetabolic lesion within central liver increased in size compared to prior PET scan, numerous additional hypermetabolic lesions throughout the left and right lobes of the liver, four biliary stents present with associated mild pneumobilia,
mild splenomegaly and mild intra-abdominal ascites at that time.
Clinically, she denies fever, chills, cough, sob, chest pain, palpitations, nausea, vomiting, diarrhea, constipation, headaches, or neurological changes. She denies any overt bleeding or dark stools.
Initial Laboratory Tests
12/08/24 12/09/24
08:44 06:18
WBC 15.8 H
Hgb 6.7 L*
Hct 21.1 L
Plt Count 654 H
Sodium 129 L
Calcium 8.6
Total Bilirubin 1.6 H
Direct Bilirubin 1.0 H
AST 285 H
ALT 267 H
Alkaline Phosphatase 706 H
Review of Systems
-
All Other Systems: Not reviewed unless documented
Physical Exam
-
General: No Apparent Distress, Conversant and Appears Chronically Ill
HEENT: Moist Mucous Membranes; Negative Jaundice
Musculoskeletal: No Clubbing, No Cyanosis and No Edema
Neurology: Non Focal, No Lateralizing Symptoms and No Word Finding Difficulty
Skin: Dry; Negative Jaundice
Hematologic / Lymphatic: No Lymphadenopathy
Psych: Calm and Intact Judgement/Insight
[2024-12-10 11:21] LABS: Nucleated Red Blood Cells % 0.1 %
[2024-12-10 12:38] VITALS: BP 120/73
--- NOTE | 2024-12-10 12:41 | CM ---
CM reviewed chart, received call from Kim, therapist at [facility], will be coming in to see patient today. Patient seen bedside, reports no needs/concerns to CM at this time. CM will continue to follow support/ all discharge planning
needs.
Plan; home with family
[2024-12-10] MEDS: OMNIPAQUE 50 ML PO (12:50)
[2024-12-10 13:57] LABS: Iron < 20 ug/dl (37-170)
[2024-12-10 14:49] LABS: Reticulocyte Count 5.1 % (0.4-2.8)
--- NOTE | 2024-12-10 15:00 | W.PN.HOSP.TC ---
Today's Communication/Plan
-
Appreciate hematology eval for portal vein thrombus
Continue antibiotics
Follow-up culture results
Follow-up cytology
Assessment / Plan
Assessment / Plan
Recurrent ascites
Transaminitis and hyperbilirubinemia
Ascites may be secondary to peritoneal/hepatic mets (has been found to have malignant cells in the previous paracentesis) versus secondary to portal hypertension.
Has biliary disease status post stenting with 2 stent exchange planned for December 24. T. bili has gone up on 12/09, no evidence of ductal dilation on abdominal ultrasound. Hyperbilirubinemia has improved, transaminitis remains.
In ED, s/p 2.5 L paracentesis
Initial ascitic fluid shows a WBC count of 287/microL, straw colored fluid. The ANC = 22 /microL which is non-diagnostic for SBP or secondary bacterial peritonitis and sbp is unlikely. Fluid cx no growth to date.
Empiric ceftriaxone started. Blood culture no growth to date
Repeat para 12/09, 2.2 L removed. Follow-up fluid culture. Cytology pending. Noted worsening leukocytosis, patient is afebrile.
- pain control and antiemetics
- spironolactone 50 daily for now
- Lactulose 3 times daily as patient has been constipated
- free water restriction
Appreciate GI eval
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 Hematology consulted
Metastatic Breast Ca
On Truqap 200 q 2 wed-sat, off for 3 days. Letrozole 2.5 daily
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
Secondary malignant neoplasm of right lung
Reviewed PET scan from spring
Follows up with oncology at [facility], requested records
Anemia
likely 2/2 underlying malignancy
Hemoglobin 11.7 in October, down to 6.7
Transfused 1 unit PRBC improved to 9.3, stable.
Adjustment disorder with depressed mood/pain
- conitnue abilify and adderal
- continue suboxone
Hyponatremia
hypervolemic, urine sodium less than 5
- free water restriction as above
Continue to monitor sodium
Holding off diuretic
Worsening
Sinus tachycardia
Continue metoprolol
Monitor, improving
DVT PPX -Lovenox
Code status - Full code
Anticipated Discharge: > 48 hours
Subjective/Interval History
-
Date of Service: December 10, 2024
Denies any acute issues overnight. Notes that she had a bowel movement
Objective Data
-
Labs:
Laboratory Results
12/10/24
07:37
WBC 26.0 H
Hgb 9.2 L
Hct 28.1 L
Plt Count 578 H
Sodium 124 L
Potassium 4.8
Chloride 95 L
Carbon Dioxide 19 L
BUN 11
Creatinine 0.7
Glucose 123 H
Calcium 8.3 L
Total Bilirubin 1.0
AST 217 H
ALT 282 H
Alkaline Phosphatase 640 H
Vital Signs:
Vital Signs
Temp Pulse Resp BP Pulse Ox
98.1 F 102 16 120/73 98
12/10/24 12:38 12/10/24 12:38 12/10/24 07:10 12/10/24 12:38 12/10/24 12:38
I&O
12/09/24 12/10/24 12/11/24
06:59 06:59 06:59
Intake Total 970 / 970 1440 / 1440
Balance 970 / 970 1440 / 1440
Review of Systems
-
All other systems: Reviewed and negative
Physical Exam
-
General: No Apparent Distress
HEENT: Moist Mucous Membranes and PERRLA
Respiratory: Clear to Auscultation; Negative Wheezes, Rales or Rhonchi
Cardiac: Regular Rhythm and S1/S2; Negative Murmur, Rub or Gallop
GI: Nontender, Normal Bowel Sounds and Distended
Musculoskeletal: No Clubbing and No Cyanosis
Skin: Warm and Dry; Negative Rash, Ulcers or Lesions
Neuro: Awake and AO x 3
Psych: Calm
Data Reviewed
-
Ultrasound: Report Reviewed by me and Discussed with Patient
Labs: Labs Reviewed by me and Discussed with Patient
[2024-12-10 15:01] LABS: LDH 551 U/L (120-246)
[2024-12-10 15:10] VITALS: BP 156/84
[2024-12-10 16:09] LABS: Folate 16.1 ng/ml (2.76-20); Vitamin B12 > 1000 pg/ml (239-931)
[2024-12-10 16:12] LABS: Ferritin 41.7 ng/ml (6.24-137)
[2024-12-10] MEDS: LOVENOX 40 MG SC (17:49)
[2024-12-10] MEDS: DULCOLAX 10 MG RECTAL (17:50)
[2024-12-10] MEDS: TOPROL XL 12.5 MG PO (17:53)
[2024-12-10 19:15] VITALS: BP 134/81
[2024-12-10] MEDS: STERILE WATER FOR INJECTION 20 ML IV (22:30)
[2024-12-10] MEDS: ROCEPHIN 2000 MG IV (22:30)
[2024-12-10 23:33] VITALS: BP 135/74
--- NOTE | 2024-12-11 02:19 | DOWNTIME ---
There was a [employer] Client Safety Admin Assistant Downtime on 12/11/2024 from 0100 to 12/11/2024 at 0215. Downtime documentation of patient's care, including medication administrations, has been reconciled in the electronic record per guidelines. Refer to the
patient's paper chart under the miscellaneous tab to see printed paper medication records and downtime forms.
[2024-12-11 03:49] VITALS: BP 142/90
[2024-12-11 06:06] LABS: Hematocrit 26.4 % (37.0-47.0); Hemoglobin 9.0 g/dL (12.0-16.0); Mean Corp Hgb Conc. 34.1 g/dL (33.0-37.0); Mean Corpuscular Volume 79.5 fL (81.0-99.0); Nucleated Red Blood Cells % 0.1 %; Platelet Count 545 10^3/uL (130-400); Red Cell Dist. Width 16.9 % (11.5-14.5)
[2024-12-11 06:30] LABS: ALT (SGPT) 245 U/L (0-35); AST (SGOT) 154 U/L (14-36); Albumin 2.9 g/dl (3.5-5.0); Alkaline Phosphatase 607 U/L (38-126); Blood Urea Nitrogen 14 mg/dl (7-17); Calcium 8.7 mg/dl (8.4-10.2); Carbon Dioxide 22 mmol/L (22-30); Chloride 93 mmol/L (98-107); Estimated Creatinine Clearance 89 ml/min; Glucose 131 mg/dl (70-99); Potassium 4.8 mmol/L (3.5-5.1); Sodium 122 mmol/L (135-145); Total Protein 5.8 g/dl (6.3-8.2); eGFR > 60.00
[2024-12-11 07:10] VITALS: BP 126/73
[2024-12-11] MEDS: NICODERM TRANSDERMAL 14 MG TRANSDERM (08:53)
[2024-12-11] MEDS: PROTONIX IV 40 MG IV (08:53)
[2024-12-11] MEDS: NSS (PRESERVATIVE FREE) 10 ML IV (08:54)
[2024-12-11] MEDS: FEMARA 2.5 MG PO (08:55)
[2024-12-11] MEDS: COLACE 100 MG PO ×2 (08:56→20:05)
[2024-12-11] MEDS: FLUSH (NSS) 1 FLUSH IV ×2 (08:57→13:53)
[2024-12-11] MEDS: DUPHALAC/CHRONULAC 20 GRAMS PO ×3 (08:57→21:32)
[2024-12-11] MEDS: SUBUTEX 12 MG SL (09:01)
[2024-12-11] MEDS: ABILIFY 5 MG PO (09:02)
[2024-12-11] MEDS: ALDACTONE 50 MG PO (09:02)
[2024-12-11] MEDS: ZOLOFT 200 MG PO (09:02)
[2024-12-11] MEDS: SENOKOT-S 1 TABLET PO (09:05)
--- NOTE | 2024-12-11 09:41 | W.CON.NEPH ---
Addendum entered and electronically signed by Juanjo Spear MD 12/11/24 17:25:
I agree with the resident's note with the following addendum
44-year-old female with unfortunate metastatic breast cancer to liver bile ducts and lungs. No evidence of spine or brain metastases currently. Currently receiving chemotherapy. Given significant liver involvement she has required frequent
paracentesis. She is on diuretic therapy given her ascites. She came to the emergency room because of abdominal pain and distention. 2.2 L of fluid were tapped from the abdomen. Since admission her sodium level has dropped from 131 now down to
122. Her LFTs remain chronically elevated. Blood pressure has remained stable on low-dose beta-yolanda therapy.
Patient is awake alert oriented and in no distress. Mood and affect were pleasant, insight and judgment were good. Pupils are equal round and reactive to light, extraocular movements are intact, sclera were anicteric. Hearing was normal, ears and
nose are intact. Oropharynx was clear. Neck was supple with trachea midline and no thyromegaly. Heart was regular rate and rhythm without rubs. Lower extremities without edema. Lungs were clear to auscultation bilaterally and with normal
excursion. Abdomen was soft, nontender, with normal active bowel sounds, and no hepatosplenomegaly. Skin was without rash and with normal turgor.
Laboratory values reviewed
CT abdomen pelvis 12/10/2024 reviewed with innumerable liver metastases with omental metastases as well. There are ovarian abnormalities suggestive of metastatic disease as well. There appears to be metastasis to the right fourth rib as well.
EKG 12/08/2024 by my reading shows sinus tachycardia
Will request old records for sodium level
Assessment
Hyponatremia
Anemia
Metastatic breast cancer with mets to liver, bile duct, lungs
Recurrent ascites
Plan
3% saline
Monitor BMP
check orthostatics
Would avoid Samsca given elevated LFTs, however if she were to opt for hospice I think we could reasonably use Samsca to control her sodium level
Original Note:
Consultation
-
Date/Time Consultation Requested: 12/11/2024 08:24
Date/Time Consultation Performed: 12/11/2024 10:23
Requesting Provider: Johana Costello MD
Performing Provider: Juanjo Spear MD
Reason for Consultation: Hyponatremia
Medical History
-
Chief Complaint: Hyponatremia
History of Present Illness:
This is a 44-year-old female with past medical history of metastatic breast cancer s/p left mastectomy with mets to liver, bile ducts, lungs currently on chemotherapy who presented to ED 12/07 with abdominal pain and distention.� In the ED, she
underwent paracentesis for which 2250 cc of clear yellow cystic fluid was evacuated.� She has undergone multiple paracentesis in the past and was placed on Aldactone in July 2024.� During this admission, patient was continued on spironolactone 50 mg
daily and started on antibiotic for SBP.� Laboratory on presentation at 12/07 was 131 which is trending down to 122.� Other urine labs on presentation 12/07 with urine sodium less than 5, urine osmole 444.� Today 12/11, serum sodium is 122. Given the
worsening hyponatremia, we are consulted to evaluate patient from renal standpoint.
Past Medical History
Past Medical History: Other (History of metastatic breast cancer)
Past Surgical History: Other (Left mastectomy)
Social History
Tobacco: Vaping
Alcohol: None
Drug: None
Family History
Family History: Not Pertinent
Allergies / Home Medications
Allergy/AdvReac Type Severity Reaction Status Date / Time
No Known Allergies Allergy Verified 12/07/24 20:00
�Medication �Instructions �Recorded �Confirmed �Type
aripiprazole 5 mg tablet 5 mg PO DAILY Mental Health/Anxiety 12/07/24 12/07/24 History
buprenorphine 8 mg-naloxone 2 mg 1.5 film buccal DAILY Substance 12/07/24 12/07/24 History
sublingual film (Suboxone) abuse disorder
capivasertib 200 mg tablet (Truqap) 200 mg PO Q12H Cancer 12/07/24 12/07/24 History
dextroamphetamine-amphetamine 15 15 mg PO DAILY PRN adhd 12/07/24 12/07/24 History
mg tablet (Adderall)
dextroamphetamine-amphetamine ER 20 mg PO DAILY ADHD 12/07/24 12/07/24 History
20 mg 24hr capsule,extend release
(Adderall XR)
letrozole 2.5 mg tablet 2.5 mg PO DAILY Cancer 12/07/24 12/07/24 History
metoprolol succinate 25 mg 12.5 mg PO DAILY Blood Pressure 12/07/24 12/07/24 History
tablet,extended release 24 hr
sertraline 200 mg capsule 200 mg PO DAILY Depression 12/07/24 12/07/24 History
spironolactone 50 mg tablet 50 mg PO TID Fluid 12/07/24 12/07/24 History
Retention/Swelling
Review of Systems
-
All other systems: Negative unless noted (Except as documented in HPI)
Physical Exam
Vital Signs
Vital Signs
Temp Pulse Resp BP Pulse Ox
98.0 F 101 16 126/73 97
12/11/24 07:10 12/11/24 07:10 12/11/24 07:10 12/11/24 07:10 12/11/24 07:10
Lab Results
WBC 22.0 10^3/uL (4.8-10.8) H 12/11/24 05:53
RBC 3.32 10^6/uL (4.20-5.40) L 12/11/24 05:53
Hgb 9.0 g/dL (12.0-16.0) L 12/11/24 05:53
Hct 26.4 % (37.0-47.0) L 12/11/24 05:53
Plt Count 545 10^3/uL (130-400) H 12/11/24 05:53
Sodium 122 mmol/L (135-145) L 12/11/24 05:53
Potassium 4.8 mmol/L (3.5-5.1) 12/11/24 05:53
Chloride 93 mmol/L (98-107) L 12/11/24 05:53
Carbon Dioxide 22 mmol/L (22-30) 12/11/24 05:53
BUN 14 mg/dl (7-17) 12/11/24 05:53
Creatinine 0.7 mg/dL (0.6-1.0) 12/11/24 05:53
eGFR > 60.00 12/11/24 05:53
Glucose 131 mg/dl (70-99) H 12/11/24 05:53
Calcium 8.7 mg/dl (8.4-10.2) 12/11/24 05:53
Albumin 2.9 g/dl (3.5-5.0) L 12/11/24 05:53
Physical Exam
General: Awake
Respiratory: Clear
Cardiac: S1/S2 and Regular Rate/Rhythm
Abdomen: Soft
Musculoskeletal: No Edema
Neuro: Nonfocal/Grossly Intact
Assessment/Plan
-
Assessment
Hypervolemic hyponatremia
Anemia
Metastatic breast cancer with mets to liver, bile duct, lungs
Recurrent ascites
Plan
Hyponatremia in the setting of cirrhosis/Recurrent ascites
Urine sodium 5, urine osmole 444
Will start patient on hypertonic 3% saline
Monitor BMP
Inability to use Samsca tablets given elevated LFTs
--- NOTE | 2024-12-11 10:57 | W.PN.ONC2 ---
Today's Communication / Plan
-
As above.
Discussed GOC & hospice. She wishes to wait until she follows with Dr. Kauffman and possibly get sacituzumab salvage.
Impression
Impression
metastatic breast cancer on Truqup and letrozole (weakly ER+, Her2 neg)
Ascites
Portal vein thrombus (tumor thrombis)
Anemia
thrombocytosis
leukocytosis
elevated LFTs
hyponatremia
Plan
Plan
Patient with POD based on rising CA 27/29 (34.8 > 67.4) [address] CT results although most recent prior was in July at [facility] so not compared.
PVT appears by CT scan to be tumor thrombus. A/C not indicated.
Will update CA27-29. Pending (prior was 34.8 > 67.4)
Reviewed prior treatment history with Dr. Nair, she hasn't yet had sacituzumab, which would be my next choice id PS adequate.
Subjective/Objective
Chief Complaint
ACS Heme Onc
Subjective
Ascites better but not gone. Weak and frail. Denies pain per se.
Vital Signs:
Vital Signs
Temp Pulse Resp BP Pulse Ox
98.0 F 101 16 126/73 97
12/11/24 07:10 12/11/24 07:10 12/11/24 07:10 12/11/24 07:10 12/11/24 07:10
Lab Results:
Laboratory Data
WBC 22.0 10^3/uL (4.8-10.8) H 12/11/24 05:53
Hgb 9.0 g/dL (12.0-16.0) L 12/11/24 05:53
Plt Count 545 10^3/uL (130-400) H 12/11/24 05:53
PT 13.3 Sec (11.4-14.6) 12/07/24 21:30
INR 0.98 12/07/24 21:30
eGFR > 60.00 12/11/24 05:53
CT IMP:
IMPRESSION:
Innumerable liver metastases. Thrombosis of the portal vein at the confluence of the right and left portal veins, likely reflecting tumor thrombus. The more distal portal vein is patent, and the splenic and superior mesenteric veins are patent.
Ill-defined omental soft tissue attenuation at midline raising concern for omental metastases.
Masslike enlargement of both ovaries raising concern for ovarian metastatic disease. Treatment related changes would be an alternative consideration.
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
Hepatic cirrhosis.
Common bile duct stents in place.
Mild abdominopelvic ascites.
Other chronic findings, as detailed above.
Physical Exam
HEENT: Other (cachectic, PS 2-3)
Cardiology: S1 and S2
Pulmonary: Clear
GI: Soft, Distended and Fluid Wave
Extremities: No Edema
Neuro: Non Focal
[2024-12-11 12:14] VITALS: BP 130/79
[2024-12-11] MEDS: SODIUM CHLORIDE 3% 250 IV (13:52)
[2024-12-11 14:03] VITALS: BMI 23.3
--- NOTE | 2024-12-11 14:16 | W.PN.GI.CBS2 ---
Addendum entered and electronically signed by Oleksandr Wyman MD 12/11/24 15:43:
I saw and evaluated the patient. I reviewed the resident�s note and agree with findings and plan as documented in the resident�s note.
Denies complaints. Had small BM with suppository
ABD soft mild distended
REC:
Prn paracentesis
Cont aldactone.
Stent change scheduled with Dr Mayes end of month
LFTs stable
Will sign off. Please call back if needed
Original Note:
Today's Communication / Plan
-
Pt with Stage IV metastatic breast carcinoma. Ascites with fluid + for carcinoma. imaging positive for cirrhosis, innumerable liver mets, and omental mets.
She will discuss with outpatient oncologist Dr. Nair regarding GOC vs. hospice vs. rescue treatment
Stenting in place, scheduled for replacement as op with Dr. Mayes at [facility] 12/24/24
Hyponatremia per Nephro/Primary
GI will sign off
Assessment / Plan
-
44-year-old female with history of metastatic breast cancer with extensive mets in the liver, noted on PET scan in June 2024, biliary stents noted as well now presenting with abdominal pain and increased abdominal girth, ascitic fluid analysis
without any SBP, SAAG more than 2.1 suggesting portal hypertensive etiology for ascites. No evidence of jaundice. History of biliary duct stenting, 4 stents placed in the bile ducts in November [address] Mayes. Has another appointment end of
November now. Has follow up with her Oncologist Dr. Nair this month as well.
GI was consulted for Abdominal discomfort and abdominal ascites with history of extensive liver mets.
#Abdominal Ascites
#Main portal Vein Thrombus, secondary to malignancy
#Innumerable Liver Mets
- s/p repeat paracentesis 12/10/24 2.2 L + malignancy
- Will get records to review from previous workup
> per patient previous paracentesis at [facility] cytology + malignancy, also Liver Bx, +metastatic disease
- On Aldactone 50 mg daily
- US Abd w/ Doppler:
- Occlusion of the main portal vein with thrombus extending to the right portal vein. Appears to be hepatofugal flow within the left portal vein. Cirrhotic morphology of liver. Stent present within the CBD without evidence of biliary ductal
dilatation.
- CT Chest/Abd/Pelvis:
- Innumerable liver metastases. Thrombosis of the portal vein at the confluence of the right and left portal veins, likely reflecting tumor thrombus. The more distal portal vein is patent, and the splenic and superior mesenteric veins are patent.
- Ill-defined omental soft tissue attenuation at midline raising concern for omental metastases.
- hepatic cirrhosis
#Anemia, likely related to underlying malignancy
Received 1 unit of packed red blood cell transfusion 12/09/24 with appropriate response
- Hgb stable
- Monitor H&H and transfuse as needed
#Hyponatremia
- correction per primary team/nephro
- On Aldactone
#Transaminitis, likely related to metastatic liver disease
#H/o Biliary stenting (Dr. Mayes, [facility]) - replacement scheduled for 12/24/24
- Abd US showing stent in CBD w/o evidence of Biliary ductal dilatation
- T Bili stabilized, 0.9 today
- patent stent, LFTs still down trending
#Leukocytosis
- WBC trending down but still elevated
- remains afebrile
- on Ceftriaxone 2 g daily, no current signs of SBP
#Constipation
- resolved on Colace and lactulose TID
Subjective
Subjective
Date of Service: December 11, 2024
Feeling alright, still with abd discomfort and hiccups but no abd pain, n/v/d/fevers/chills. She is tolerating diet. She had one soft non bloody BM overnight. No other acute complaints.
Objective
Data Reviewed
Laboratory Data:
Laboratory Results
12/11/24 05:53
Laboratory Results
PT 13.3 Sec (11.4-14.6) 12/07/24 21:30
INR 0.98 12/07/24 21:30
Total Bilirubin 0.9 mg/dl (0.2-1.3) 12/11/24 05:53
AST 154 U/L (14-36) H 12/11/24 05:53
ALT 245 U/L (0-35) H 12/11/24 05:53
Alkaline Phosphatase 607 U/L (38-126) H 12/11/24 05:53
Lipase 209 U/L (23-300) 12/07/24 20:11
Vital Signs and I&O:
Vital Signs
Temp Pulse Resp BP Pulse Ox
98.1 F 107 16 130/79 95
12/11/24 12:14 12/11/24 12:14 12/11/24 12:14 12/11/24 12:14 12/11/24 12:14
I&O
12/10/24 12/11/24 12/12/24
06:59 06:59 06:59
Intake Total 1440 / 1440 3360 / 3360
Balance 1440 / 1440 3360 / 3360
Physical Exam
Physical Exam
HEENT: Anicteric and Moist mucous membranes
Cardiology: Normal Sinus Rhythm, S1 and S2
Pulmonary: Clear
GI: Soft, Distended, Non Tender, Fluid Wave and Normal Bowel Sounds
Extremities: No Edema, Warm and Pulses Present
--- NOTE | 2024-12-11 14:20 | W.PN.HOSP.TC ---
Today's Communication/Plan
-
consulted nephrology for hyponatremia
cytology positive for malignant cells, oncology eval appreciated
dietitian consult
Assessment / Plan
Assessment / Plan
Recurrent ascites
Transaminitis and hyperbilirubinemia
cytology positive for malignant cells
Has biliary disease status post stenting with 2 stent exchange planned for December 24. T. bili has gone up on 12/09, no evidence of ductal dilation on abdominal ultrasound. Hyperbilirubinemia has improved, transaminitis remains.
In ED, s/p 2.5 L paracentesis
Initial ascitic fluid shows a WBC count of 287/microL, straw colored fluid. The ANC = 22 /microL which is non-diagnostic for SBP or secondary bacterial peritonitis and sbp is unlikely. Fluid cx no growth to date.
Empiric ceftriaxone started (5 day course). Blood culture no growth to date
Repeat para 12/09, 2.2 L removed. Follow-up fluid culture. Cytology positive malignant cells. Noted worsening leukocytosis, patient is afebrile.
- pain control and antiemetics
- spironolactone 50 daily for now
- Lactulose 3 times daily as patient has been constipated
- free water restriction
Appreciate GI eval
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
Metastatic Breast Ca
On Truqap 200 q 2 mon-sat, off for 3 days. Letrozole 2.5 daily
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
Secondary malignant neoplasm of right lung
Reviewed PET scan from spring
Follows up with oncology at [facility], requested records
aprreciate onc eval - no further inpt test/meds
Anemia
likely 2/2 underlying malignancy
Hemoglobin 11.7 in October, down to 6.7
Transfused 1 unit PRBC improved to 9.3, stable.
Adjustment disorder with depressed mood/pain
- conitnue abilify and adderal
- continue suboxone
Hyponatremia
hypervolemic, urine sodium less than 5
- free water restriction as above
Continue to monitor sodium
Holding off diuretic
Worsening to 122, consulted nephrology, treating with 3%
Sinus tachycardia
Continue metoprolol
Monitor, improving
DVT PPX -Lovenox
Code status - Full code
Anticipated Discharge: 24 - 48 hours
Subjective/Interval History
-
Date of Service: December 11, 2024
Patient still feeling quite bloated and has a poor appetite
Objective Data
-
Labs:
Laboratory Results
12/11/24 12/11/24
05:53 16:00
WBC 22.0 H
Hgb 9.0 L
Hct 26.4 L
Plt Count 545 H
Sodium 122 L Pending
Potassium 4.8 Pending
Chloride 93 L Pending
Carbon Dioxide 22 Pending
BUN 14 Pending
Creatinine 0.7 Pending
Glucose 131 H Pending
Calcium 8.7 Pending
Total Bilirubin 0.9
AST 154 H
ALT 245 H
Alkaline Phosphatase 607 H
Vital Signs:
Vital Signs
Temp Pulse Resp BP Pulse Ox
98.1 F 107 16 130/79 95
12/11/24 12:14 12/11/24 12:14 12/11/24 12:14 12/11/24 12:14 12/11/24 12:14
I&O
12/10/24 12/11/24 12/12/24
06:59 06:59 06:59
Intake Total 1440 / 1440 3360 / 3360
Balance 1440 / 1440 3360 / 3360
Review of Systems
-
All other systems: Reviewed and negative
Physical Exam
-
General: No Apparent Distress
HEENT: Moist Mucous Membranes and PERRLA
Respiratory: Clear to Auscultation; Negative Wheezes, Rales or Rhonchi
Cardiac: Regular Rhythm and S1/S2; Negative Murmur, Rub or Gallop
GI: Nontender, Normal Bowel Sounds, Distended and Organomegaly
Musculoskeletal: No Clubbing and No Cyanosis
Skin: Warm and Dry; Negative Rash, Ulcers or Lesions
Neuro: Awake and AO x 3
Psych: Calm
Data Reviewed
-
Ultrasound: Report Reviewed by me, Discussed with Physician and Discussed with Patient
Labs: Labs Reviewed by me, Discussed with Physician and Discussed with Patient
[2024-12-11 15:10] VITALS: BP 118/68
--- NOTE | 2024-12-11 15:19 | CM ---
CM reviewed chart, patient seen bedside with Nurse. Patient denies needs at this time, provided CM with card for patients therapist through [facility] (Kim Zavala- [phone]).
Care ongoing. CM will continue to follow for all discharge planning needs.
Plan; home with family
[2024-12-11 17:09] LABS: Blood Urea Nitrogen 13 mg/dl (7-17); Calcium 8.6 mg/dl (8.4-10.2); Carbon Dioxide 22 mmol/L (22-30); Chloride 94 mmol/L (98-107); Estimated Creatinine Clearance 89 ml/min; Glucose 143 mg/dl (70-99); Potassium 4.8 mmol/L (3.5-5.1); Sodium 122 mmol/L (135-145); eGFR > 60.00
[2024-12-11] MEDS: LOVENOX 40 MG SC (17:40)
[2024-12-11] MEDS: TOPROL XL 12.5 MG PO (17:43)
[2024-12-11 19:36] VITALS: BP 137/84
[2024-12-11] MEDS: PROTONIX 40 MG PO (20:05)
[2024-12-11] MEDS: STERILE WATER FOR INJECTION 20 ML IV (22:18)
[2024-12-11] MEDS: ROCEPHIN 2000 MG IV (22:18)
[2024-12-11] MEDS: ZOFRAN 4 MG IV (22:31)
[2024-12-11 22:36] VITALS: BP 130/81
[2024-12-11 22:55] LABS: Blood Urea Nitrogen 14 mg/dl (7-17); Calcium 8.8 mg/dl (8.4-10.2); Carbon Dioxide 20 mmol/L (22-30); Chloride 96 mmol/L (98-107); Estimated Creatinine Clearance 103 ml/min; Glucose 142 mg/dl (70-99); Potassium 4.8 mmol/L (3.5-5.1); Sodium 123 mmol/L (135-145); eGFR > 60.00
[2024-12-11] MEDS: SODIUM CHLORIDE 3% 500 IV (23:51)
[2024-12-12 02:47] VITALS: BP 118/68
[2024-12-12 05:34] LABS: Hematocrit 26.9 % (37.0-47.0); Hemoglobin 8.9 g/dL (12.0-16.0); Mean Corp Hgb Conc. 33.1 g/dL (33.0-37.0); Mean Corpuscular Volume 80.8 fL (81.0-99.0); Nucleated Red Blood Cells % 0.2 %; Platelet Count 526 10^3/uL (130-400); Red Cell Dist. Width 17.3 % (11.5-14.5)
[2024-12-12 06:02] LABS: ALT (SGPT) 215 U/L (0-35); AST (SGOT) 130 U/L (14-36); Albumin 2.8 g/dl (3.5-5.0); Alkaline Phosphatase 694 U/L (38-126); Blood Urea Nitrogen 12 mg/dl (7-17); Calcium 8.8 mg/dl (8.4-10.2); Carbon Dioxide 22 mmol/L (22-30); Chloride 99 mmol/L (98-107); Estimated Creatinine Clearance 103 ml/min; Glucose 135 mg/dl (70-99); Potassium 4.9 mmol/L (3.5-5.1); Sodium 127 mmol/L (135-145); Total Protein 5.8 g/dl (6.3-8.2); eGFR > 60.00
--- NOTE | 2024-12-12 06:08 | PTCARENOTE ---
Pt Na remained low after receiving 3% Na bag. [employer] notified for a Na of 123 and a new bag order of 3% Na at 30 ml/hr at 2355, 12/11. Pt notified fro Na result of 127 and 3% Na will be placed on hold until further evaluation. Pt has been asymptomatic.
[2024-12-12 07:53] VITALS: BP 114/69
--- NOTE | 2024-12-12 08:25 | W.PN.HOSP.TC ---
Today's Communication/Plan
-
No further workup from GI or oncology, appreciate nephrology treatment of hyponatremia
Working on patient's abdominal discomfort and appetite
Outpatient follow-up with oncology for attempted salvage chemo
Possible DC in next 1 to 2 days depending on sodium level and p.o. intake
Assessment / Plan
Assessment / Plan
Recurrent ascites
Transaminitis and hyperbilirubinemia
cytology positive for malignant cells
Has biliary disease s/p stenting with 2 stent exchange planned for December 24. T. bili has gone up on 12/09, no evidence of ductal dilation on abdominal ultrasound. Hyperbilirubinemia has improved, transaminitis remains.
In ED, s/p 2.5 L paracentesis
Initial ascitic fluid shows a WBC count of 287/microL, straw colored fluid. The ANC = 22 /microL which is non-diagnostic for SBP or secondary bacterial peritonitis and sbp is unlikely. Fluid cx no growth to date.
Empiric ceftriaxone started (5 day course). Blood culture no growth to date
Repeat para 12/09, 2.2 L removed. Follow-up fluid culture. Cytology positive malignant cells. Noted worsening leukocytosis, patient is afebrile.
- pain control and antiemetics
- spironolactone 50 daily for now
- Lactulose 3 times daily as patient has been constipated
- free water restriction
Appreciate GI eval, they have signed off
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
--> pt will need PRN para centesis arranged by oncology.
d/w GI, will place pt on lasix 20/spironlactone 50 once Na normalized
Metastatic Breast Ca
On Truqap 200 q 2 mon-sat, off for 3 days. Letrozole 2.5 daily
ER/TN positive HER2 positive invasive ductal carcinoma
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
Secondary malignant neoplasm of right lung
Reviewed PET scan from spring
Follows up with oncology at [facility], requested records
appreciate onc eval - no further inpt test/meds, pt will attempt salvage therapy
Anemia
likely 2/2 underlying malignancy
Hemoglobin 11.7 in October, down to 6.7
Transfused 1 unit PRBC improved to 9.3, stable.
Adjustment disorder with depressed mood/pain
- conitnue abilify and adderal
- continue suboxone
Hyponatremia
hypervolemic, urine sodium less than 5
- free water restriction as above
Continue to monitor sodium
Holding off loop diuretic until improved
Worsened to 122, consulted nephrology, treated with 3%, and has so far improved to 127, getting another dose today
Sinus tachycardia
Continue metoprolol
Monitor, improving
Malnutrition
poor oral intake
nutrition consult
megace
ensure
DVT PPX -Lovenox
Code status - Full code
Anticipated Discharge: Within 24 hours
Subjective/Interval History
-
Date of Service: December 12, 2024
Pt still with low appetite, bloating. does not feel like fluid built back up. Updated her on plan of care.
Objective Data
-
Labs:
Laboratory Results
12/11/24 12/12/24
22:23 05:22
WBC 17.7 H
Hgb 8.9 L
Hct 26.9 L
Plt Count 526 H
Sodium 123 L 127 L
Potassium 4.8 4.9
Chloride 96 L 99
Carbon Dioxide 20 L 22
BUN 14 12
Creatinine 0.6 0.6
Glucose 142 H 135 H
Calcium 8.8 8.8
Total Bilirubin 0.8
AST 130 H
ALT 215 H
Alkaline Phosphatase 694 H
Vital Signs:
Vital Signs
Temp Pulse Resp BP Pulse Ox
97.8 F 100 16 118/68 98
12/12/24 02:47 12/12/24 02:47 12/12/24 02:47 12/12/24 02:47 12/12/24 02:47
I&O
12/11/24 12/12/24 12/13/24
06:59 06:59 06:59
Intake Total 3360 / 3360 1949
Balance 3360 / 3360 1949
Review of Systems
-
All other systems: Reviewed and negative
Physical Exam
-
General: No Apparent Distress
HEENT: Moist Mucous Membranes and PERRLA
Respiratory: Clear to Auscultation; Negative Wheezes, Rales or Rhonchi
Cardiac: Regular Rhythm and S1/S2; Negative Murmur, Rub or Gallop
GI: Nontender, Normal Bowel Sounds, Distended and Organomegaly
Musculoskeletal: No Clubbing and No Cyanosis
Skin: Warm and Dry; Negative Rash, Ulcers or Lesions
Neuro: Awake and AO x 3
Psych: Calm
Data Reviewed
-
Ultrasound: Report Reviewed by me, Discussed with Physician and Discussed with Patient
Labs: Labs Reviewed by me, Discussed with Physician and Discussed with Patient
--- NOTE | 2024-12-12 08:41 | W.PN.ONC2 ---
Today's Communication / Plan
-
Goals restorative with plan to consider sacituzumab salvage if PS allows, continued GOC with primary oncologist upon discharge
Impression
Impression
metastatic breast cancer on Truqup and letrozole (weakly ER+, Her2 neg)
Ascites s/p paracentesis for which 2250 cc of clear yellow ascitic fluid evacuated. cytology was not sent.
Portal vein thrombus (tumor thrombus) -no indication for anticoagulation
Anemia -stable
thrombocytosis -improved
leukocytosis-improved
elevated LFTs
hyponatremia -improved
Plan
Plan
Patient with POD based on rising CA 27/29 (34.8 > 67.4) [address] CT results although most recent prior was in July at [place] so not compared.
Will update CA27-29. Pending (prior was 34.8 > 67.4)
Could consider sacituzumab if performance status allows for next line therapy, however, comfort care also appropriate
Subjective/Objective
Subjective
using colace, senna, bisacodyl, and lactulose for bowel regimen
using ondensetron for nausea
denies pain
Vital Signs:
Vital Signs
Temp Pulse Resp BP Pulse Ox
97.8 F 100 16 118/68 98
12/12/24 02:47 12/12/24 02:47 12/12/24 02:47 12/12/24 02:47 12/12/24 02:47
Lab Results:
Laboratory Data
WBC 17.7 10^3/uL (4.8-10.8) H 12/12/24 05:22
Hgb 8.9 g/dL (12.0-16.0) L 12/12/24 05:22
Plt Count 526 10^3/uL (130-400) H 12/12/24 05:22
PT 13.3 Sec (11.4-14.6) 12/07/24 21:30
INR 0.98 12/07/24 21:30
eGFR > 60.00 12/12/24 05:22
Physical Exam
frail
HEENT: Moist Mucous Membranes; No Jaundice
Pulmonary: Other (unlabored)
GI: Soft and Distended
Extremities: Pulses Present
[2024-12-12] MEDS: PROTONIX 40 MG PO ×2 (09:45→20:40)
[2024-12-12] MEDS: DUPHALAC/CHRONULAC 20 GRAMS PO ×3 (09:45→21:55)
[2024-12-12] MEDS: NICODERM TRANSDERMAL 14 MG TRANSDERM (09:45)
[2024-12-12] MEDS: COLACE 100 MG PO ×2 (09:46→20:40)
[2024-12-12] MEDS: FEMARA 2.5 MG PO (09:46)
[2024-12-12] MEDS: SUBUTEX 12 MG SL (09:46)
[2024-12-12] MEDS: ABILIFY 5 MG PO (09:50)
[2024-12-12] MEDS: ZOLOFT 200 MG PO (09:50)
[2024-12-12] MEDS: ALDACTONE 50 MG PO (09:51)
[2024-12-12] MEDS: SODIUM CHLORIDE 3% 250 IV (10:04)
--- NOTE | 2024-12-12 10:17 | W.PN.NEPH.PH ---
Today's Communication / Plan
-
3%
Assessment/Plan
-
Assessment
Hypervolemic hyponatremia
Anemia
Metastatic breast cancer with mets to liver, bile duct, lungs
Recurrent ascites
Plan
3% saline 150ml this morning
follow BMP
eventual return to diuretics
-
-
Date of Service: December 12, 2024
CC / HPI / ROS
-
Chief Complaint:
hyponatremia
History of Present Illness:
Na up to 127 after 3%
BP stable
Hgb stable 8.9
Review of Systems:
no CP/SOB
Labs
-
Labs:
WBC 17.7 10^3/uL (4.8-10.8) H 12/12/24 05:22
RBC 3.33 10^6/uL (4.20-5.40) L 12/12/24 05:22
Hgb 8.9 g/dL (12.0-16.0) L 12/12/24 05:22
Hct 26.9 % (37.0-47.0) L 12/12/24 05:22
Plt Count 526 10^3/uL (130-400) H 12/12/24 05:22
eGFR > 60.00 12/12/24 05:22
Albumin 2.8 g/dl (3.5-5.0) L 12/12/24 05:22
Physical Exam
-
Vital Signs:
Vital Signs
Temp Pulse Resp BP Pulse Ox
98.3 F 101 18 114/69 100
12/12/24 07:53 12/12/24 09:51 12/12/24 07:53 12/12/24 09:51 12/12/24 07:53
Cardiovascular:: Regular rate and rhythm
Respiratory:: Bilateral: CTA
Lung Excursion:: Normal
Abdomen:: Nontender and Soft
Bowel Sounds:: Normal
Extremity Edema:: None: Bilateral:
--- NOTE | 2024-12-12 10:55 | CM ---
Plan is to home no needs.
Plan; Home with family no needs.
[2024-12-12 11:00] VITALS: BP 112/74; BP 124/78; BP 127/77; PULSE 103; PULSE 111; PULSE 120
[2024-12-12 11:02] LABS: CA 27-29 95.4 U/mL (<=39.0)
[2024-12-12] MEDS: ROXICODONE 10 MG PO ×2 (11:50→20:40)
[2024-12-12] MEDS: MEGACE ORAL SUSPENSION 800 MG PO (13:29)
[2024-12-12 15:02] LABS: Blood Urea Nitrogen 12 mg/dl (7-17); Calcium 8.8 mg/dl (8.4-10.2); Carbon Dioxide 20 mmol/L (22-30); Chloride 100 mmol/L (98-107); Estimated Creatinine Clearance 103 ml/min; Glucose 152 mg/dl (70-99); Potassium 4.8 mmol/L (3.5-5.1); Sodium 128 mmol/L (135-145); eGFR > 60.00
[2024-12-12 15:12] VITALS: BP 124/84
[2024-12-12] MEDS: REGLAN 5 MG PO ×2 (17:15→21:55)
[2024-12-12] MEDS: TOPROL XL 12.5 MG PO (17:15)
[2024-12-12] MEDS: LOVENOX 40 MG SC (17:15)
[2024-12-12] MEDS: DILAUDID 0.5 MG IV (18:23)
[2024-12-12 19:00] VITALS: BP 134/85
[2024-12-12] MEDS: ROCEPHIN 2000 MG IV (22:00)
[2024-12-12] MEDS: STERILE WATER FOR INJECTION 20 ML IV (22:00)
[2024-12-12 23:00] VITALS: BP 128/82
[2024-12-13 03:00] VITALS: BP 133/89
[2024-12-13 04:19] LABS: Hematocrit 26.5 % (37.0-47.0); Hemoglobin 8.8 g/dL (12.0-16.0); Mean Corp Hgb Conc. 33.2 g/dL (33.0-37.0); Mean Corpuscular Volume 81.8 fL (81.0-99.0); Nucleated Red Blood Cells % 0.3 %; Platelet Count 524 10^3/uL (130-400); Red Cell Dist. Width 17.3 % (11.5-14.5)
[2024-12-13 04:52] LABS: Blood Urea Nitrogen 16 mg/dl (7-17); Calcium 9.1 mg/dl (8.4-10.2); Carbon Dioxide 19 mmol/L (22-30); Chloride 101 mmol/L (98-107); Estimated Creatinine Clearance 89 ml/min; Glucose 125 mg/dl (70-99); Potassium 4.9 mmol/L (3.5-5.1); Sodium 129 mmol/L (135-145); eGFR > 60.00
[2024-12-13] MEDS: DILAUDID 0.5 MG IV ×4 (05:05→17:31)
[2024-12-13 07:27] VITALS: BP 125/87
[2024-12-13] MEDS: REGLAN 5 MG PO ×4 (07:30→21:23)
[2024-12-13] MEDS: ALDACTONE 50 MG PO (07:30)
[2024-12-13] MEDS: DUPHALAC/CHRONULAC 20 GRAMS PO ×3 (07:30→21:23)
[2024-12-13] MEDS: NICODERM TRANSDERMAL 14 MG TRANSDERM (07:30)
[2024-12-13] MEDS: ABILIFY 5 MG PO (07:30)
[2024-12-13] MEDS: MEGACE ORAL SUSPENSION 800 MG PO (07:30)
[2024-12-13] MEDS: PROTONIX 40 MG PO ×2 (07:31→19:34)
[2024-12-13] MEDS: SUBUTEX 12 MG SL (07:31)
[2024-12-13] MEDS: COLACE 100 MG PO ×2 (07:31→19:34)
[2024-12-13] MEDS: ZOLOFT 200 MG PO (07:31)
[2024-12-13] MEDS: FEMARA 2.5 MG PO (07:31)
[2024-12-13] MEDS: ROXICODONE 10 MG PO ×2 (07:45→19:34)
--- NOTE | 2024-12-13 09:16 | W.PN.HOSP.TC ---
Today's Communication/Plan
-
Sodium improving, appetite improving
Likely discharge tomorrow to home if sodium remains improved
Assessment / Plan
Assessment / Plan
Recurrent ascites
Transaminitis and hyperbilirubinemia
cytology positive for malignant cells
Has biliary disease s/p stenting with 2 stent exchange planned for December 24. T. bili has gone up on 12/09, no evidence of ductal dilation on abdominal ultrasound. Hyperbilirubinemia has improved, transaminitis remains.
In ED, s/p 2.5 L paracentesis
Initial ascitic fluid shows a WBC count of 287/microL, straw colored fluid. The ANC = 22 /microL which is non-diagnostic for SBP or secondary bacterial peritonitis and sbp is unlikely. Fluid cx no growth to date.
Empiric ceftriaxone started (5 day course). Blood culture no growth to date
Repeat para 12/09, 2.2 L removed. Follow-up fluid culture. Cytology positive malignant cells. Noted leukocytosis persists, patient is afebrile.
- pain control and antiemetics
- spironolactone 50 daily for now
- Lactulose 3 times daily as patient has been constipated
- free water restriction 1.5 mL
Appreciate GI eval, they have signed off
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
--> pt will need PRN para centesis arranged by oncology.
d/w GI, will place pt on lasix 20/spironlactone 50 once Na normalized
Metastatic Breast Ca
On Truqap 200 q 2 wed-sat, off for 3 days. Letrozole 2.5 daily
ER/TN positive HER2 positive invasive ductal carcinoma
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
Secondary malignant neoplasm of right lung
Reviewed PET scan from spring
Follows up with oncology at [facility], requested records
appreciate onc eval - no further inpt test/meds, pt will attempt salvage therapy vs palliative
oxycodone prn pain
Anemia
likely 2/2 underlying malignancy
Hemoglobin 11.7 in October, down to 6.7
Transfused 1 unit PRBC improved to 9.3, stable.
Adjustment disorder with depressed mood/pain
- conitnue abilify and adderal
- continue suboxone , prn oxy for breakthrough
Hyponatremia
hypervolemic, urine sodium less than 5
- free water restriction as above
Continue to monitor sodium
Holding off loop diuretic until improved
Worsened to 122, consulted nephrology, treated with 3% bolus x 2 days, and has so far improved to 129
Sinus tachycardia
Continue metoprolol
Monitor, improving
Malnutrition
poor oral intake
nutrition consult
megace has been helping
ensure
DVT PPX -Lovenox
Code status - Full code
Anticipated Discharge: Within 24 hours
Subjective/Interval History
-
Date of Service: December 13, 2024
Patient feeling tired, fatigued. Able to eat better today, eggs and bagel.
Objective Data
-
Labs:
Laboratory Results
12/13/24
03:49
WBC 17.8 H
Hgb 8.8 L
Hct 26.5 L
Plt Count 524 H
Sodium 129 L
Potassium 4.9
Chloride 101
Carbon Dioxide 19 L
BUN 16
Creatinine 0.7
Glucose 125 H
Calcium 9.1
Vital Signs:
Vital Signs
Temp Pulse Resp BP Pulse Ox
97.9 F 104 16 125/87 99
12/13/24 07:27 12/13/24 07:27 12/13/24 07:27 12/13/24 07:27 12/13/24 07:27
I&O
12/12/24 12/13/24 12/14/24
06:59 06:59 06:59
Intake Total 1949 480 / 480
Balance 1949 480 / 480
Review of Systems
-
All other systems: Reviewed and negative
Physical Exam
-
General: No Apparent Distress
HEENT: Moist Mucous Membranes and PERRLA
Respiratory: Clear to Auscultation; Negative Wheezes, Rales or Rhonchi
Cardiac: Regular Rhythm and S1/S2; Negative Murmur, Rub or Gallop
GI: Nontender, Normal Bowel Sounds, Distended and Organomegaly
Musculoskeletal: No Clubbing and No Cyanosis
Skin: Warm and Dry; Negative Rash, Ulcers or Lesions
Neuro: Awake and AO x 3
Psych: Calm
Data Reviewed
-
Ultrasound: Report Reviewed by me, Discussed with Physician and Discussed with Patient
Labs: Labs Reviewed by me, Discussed with Physician and Discussed with Patient
[2024-12-13 09:28] VITALS: BP 113/72; BP 123/80; BP 142/89; PULSE 105; PULSE 116; PULSE 125
--- NOTE | 2024-12-13 12:28 | W.PN.ONC2 ---
Today's Communication / Plan
-
.
Impression
Impression
metastatic breast cancer on Truqup and letrozole (weakly ER+, Her2 neg)
Ascites s/p paracentesis for which 2250 cc of clear yellow ascitic fluid evacuated. cytology was not sent.
Portal vein thrombus (tumor thrombus) -no indication for anticoagulation
Anemia -stable
thrombocytosis -improved
leukocytosis-improved
elevated LFTs
hyponatremia -improved
Plan
Plan
Reglan and bowel regimen for GI motility
Patient with POD based on rising CA 27/29 34.8 > 67.4-> 95.[address] results although most recent prior was in July at [place] so not compared.
Could consider sacituzumab if performance status allows for next line therapy, however, comfort care also appropriate
Subjective/Objective
Subjective
denies pain or bleeding
using bowel regimen for constipation
Vital Signs:
Vital Signs
Temp Pulse Resp BP Pulse Ox
97.9 F 104 16 125/87 99
12/13/24 07:27 12/13/24 07:27 12/13/24 07:27 12/13/24 07:27 12/13/24 07:30
Lab Results:
Laboratory Data
WBC 17.8 10^3/uL (4.8-10.8) H 12/13/24 03:49
Hgb 8.8 g/dL (12.0-16.0) L 12/13/24 03:49
Plt Count 524 10^3/uL (130-400) H 12/13/24 03:49
PT 13.3 Sec (11.4-14.6) 12/07/24 21:30
INR 0.98 12/07/24 21:30
eGFR > 60.00 12/13/24 03:49
Orders
Orders
Orders From Last 24 Hours
12/12/24 16:30
Metoclopramide [Reglan] 5 mg PO ACHS
--- NOTE | 2024-12-13 13:33 | W.PN.NEPH.PH ---
Today's Communication / Plan
-
Fluid restriction the BMP in the morning,
Assessment/Plan
-
Assessment
Hypervolemic hyponatremia
Anemia
Metastatic breast cancer with mets to liver, bile duct, lungs
Recurrent ascites
Plan
Status post hypertonic saline
follow BMP
Sodium improved to 129
Fluid restriction, increase dietary protein
-
-
Date of Service: December 13, 2024
CC / HPI / ROS
-
Chief Complaint:
hyponatremia
History of Present Illness:
Na up
BP stable
Hgb stable 8.9
Review of Systems:
no CP/SOB
Labs
-
Labs:
WBC 17.8 10^3/uL (4.8-10.8) H 12/13/24 03:49
RBC 3.24 10^6/uL (4.20-5.40) L 12/13/24 03:49
Hgb 8.8 g/dL (12.0-16.0) L 12/13/24 03:49
Hct 26.5 % (37.0-47.0) L 12/13/24 03:49
Plt Count 524 10^3/uL (130-400) H 12/13/24 03:49
Sodium 129 mmol/L (135-145) L 12/13/24 03:49
Potassium 4.9 mmol/L (3.5-5.1) 12/13/24 03:49
Chloride 101 mmol/L (98-107) 12/13/24 03:49
Carbon Dioxide 19 mmol/L (22-30) L 12/13/24 03:49
BUN 16 mg/dl (7-17) 12/13/24 03:49
Creatinine 0.7 mg/dL (0.6-1.0) 12/13/24 03:49
eGFR > 60.00 12/13/24 03:49
Glucose 125 mg/dl (70-99) H 12/13/24 03:49
Calcium 9.1 mg/dl (8.4-10.2) 12/13/24 03:49
Albumin 2.8 g/dl (3.5-5.0) L 12/12/24 05:22
Physical Exam
-
Vital Signs:
Vital Signs
Temp Pulse Resp BP Pulse Ox
97.9 F 104 16 125/87 99
12/13/24 07:27 12/13/24 07:27 12/13/24 07:27 12/13/24 07:27 12/13/24 07:30
Cardiovascular:: Regular rate and rhythm
Respiratory:: Bilateral: CTA
Lung Excursion:: Normal
Abdomen:: Nontender and Soft
Bowel Sounds:: Normal
Extremity Edema:: None: Bilateral:
[2024-12-13 15:13] VITALS: BP 124/81
[2024-12-13] MEDS: MIRALAX 17 GRAMS PO (17:28)
[2024-12-13] MEDS: TOPROL XL 12.5 MG PO (17:28)
[2024-12-13] MEDS: LOVENOX 40 MG SC (17:28)
[2024-12-13] MEDS: SENOKOT-S 1 TABLET PO (17:31)
[2024-12-13 19:00] VITALS: BP 130/82
[2024-12-13] MEDS: TUMS CHEWABLE TABLET 200 MG PO (21:25)
[2024-12-13 23:00] VITALS: BP 129/76
[2024-12-14] VITALS (7 sets, daily range): BP systolic 107–125; BP diastolic 66–82; PULSE 107–136
[2024-12-14] MEDS: STERILE WATER FOR INJECTION IV (00:10)
[2024-12-14] MEDS: DULCOLAX 10 MG RECTAL (01:37)
[2024-12-14 05:49] LABS: Hematocrit 26.0 % (37.0-47.0); Hemoglobin 8.2 g/dL (12.0-16.0); Mean Corp Hgb Conc. 31.5 g/dL (33.0-37.0); Mean Corpuscular Volume 81.8 fL (81.0-99.0); Nucleated Red Blood Cells % 0.5 %; Platelet Count 513 10^3/uL (130-400); Red Cell Dist. Width 17.5 % (11.5-14.5)
[2024-12-14 06:21] LABS: Blood Urea Nitrogen 24 mg/dl (7-17); Calcium 10.3 mg/dl (8.4-10.2); Carbon Dioxide 18 mmol/L (22-30); Chloride 100 mmol/L (98-107); Estimated Creatinine Clearance 62 ml/min; Glucose 112 mg/dl (70-99); Potassium 5.5 mmol/L (3.5-5.1); Sodium 127 mmol/L (135-145); eGFR > 60.00
[2024-12-14] MEDS: REGLAN 5 MG PO ×2 (09:27→21:44)
[2024-12-14] MEDS: REGLAN PO ×3 (09:32→17:26)
[2024-12-14] MEDS: ABILIFY 5 MG PO (09:32)
[2024-12-14] MEDS: ZOLOFT 200 MG PO (09:33)
[2024-12-14] MEDS: PROTONIX 40 MG PO ×2 (09:34→19:44)
[2024-12-14] MEDS: SUBUTEX 12 MG SL (09:34)
[2024-12-14] MEDS: FEMARA 2.5 MG PO (09:35)
[2024-12-14] MEDS: MEGACE ORAL SUSPENSION 800 MG PO (09:35)
[2024-12-14] MEDS: COLACE 100 MG PO ×2 (09:35→19:44)
[2024-12-14] MEDS: NICODERM TRANSDERMAL 14 MG TRANSDERM (09:36)
[2024-12-14] MEDS: DUPHALAC/CHRONULAC 20 GRAMS PO ×3 (09:36→21:44)
[2024-12-14] MEDS: ALDACTONE 50 MG PO (09:42)
[2024-12-14] MEDS: MILK OF MAGNESIA 30 ML PO (09:42)
--- NOTE | 2024-12-14 10:46 | PTCARENOTE ---
Assumed care of pt from a previous nurse. Pt c/o constipation, requesting milk of magnesia, TT to Dr. Costello, order placed. Pt call ohara is within reach, pt rings raghu. will cont to monitor.
--- NOTE | 2024-12-14 11:10 | W.PN.HOSP.TC ---
Today's Communication/Plan
-
Sodium back down to 127, defer to nephrology for further intervention
Abdominal distention today, if not improving with BMs, will do all abdominal ultrasound
Assessment / Plan
Assessment / Plan
Recurrent ascites
Transaminitis and hyperbilirubinemia
cytology positive for malignant cells
Has biliary disease s/p stenting with 2 stent exchange planned for December 24. T. bili has gone up on 12/09, no evidence of ductal dilation on abdominal ultrasound. Hyperbilirubinemia has improved, transaminitis remains.
In ED, s/p 2.5 L paracentesis
Initial ascitic fluid shows a WBC count of 287/microL, straw colored fluid. The ANC = 22 /microL which is non-diagnostic for SBP or secondary bacterial peritonitis and sbp is unlikely. Fluid cx no growth to date.
Empiric ceftriaxone started (5 day course). Blood culture no growth to date
Repeat para 12/09, 2.2 L removed. Follow-up fluid culture. Cytology positive malignant cells. Noted leukocytosis persists, patient is afebrile.
- pain control and antiemetics
- spironolactone 50 daily for now
- Lactulose 3 times daily as patient has been constipated
- free water restriction 1.5 mL
Appreciate GI eval, they have signed off
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
--> pt will need PRN para centesis arranged by oncology.
d/w GI, will place pt on lasix 20/spironlactone 50 once Na normalized
Abdominal distention today 12/14, if does not improve with having a BM, will repeat ultrasound to eval for ascites
Metastatic Breast Ca
On Truqap 200 q 2 wed-sat, off for 3 days. Letrozole 2.5 daily
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
Secondary malignant neoplasm of right lung
Reviewed PET scan from spring
Follows up with oncology at [facility], requested records
appreciate onc eval - no further inpt test/meds, pt will attempt salvage therapy vs palliative
oxycodone prn pain
Anemia
likely 2/2 underlying malignancy
Hemoglobin 11.7 in October, down to 6.7
Transfused 1 unit PRBC improved to 9.3, stable.
Adjustment disorder with depressed mood/pain
- conitnue abilify and adderal
- continue suboxone , prn oxy for breakthrough
Hyponatremia
hypervolemic, urine sodium less than 5
- free water restriction as above
Continue to monitor sodium
Holding off loop diuretic until improved
Worsened to 122, consulted nephrology, treated with 3% bolus x 2 days, and initially improved to 129, now back down to 127, will discuss with nephrology further plans.
Sinus tachycardia
Continue metoprolol
Monitor, improving
Malnutrition
poor oral intake
nutrition consult
megace has been helping
ensure
DVT PPX -Lovenox
Code status - Full code
Anticipated Discharge: Within 24 hours
Subjective/Interval History
-
Date of Service: December 14, 2024
Patient feeling bloated, tired. Had BM last night.
Objective Data
-
Labs:
Laboratory Results
12/14/24
05:33
WBC 19.2 H
Hgb 8.2 L
Hct 26.0 L
Plt Count 513 H
Sodium 127 L
Potassium 5.5 H
Chloride 100
Carbon Dioxide 18 L
BUN 24 H
Creatinine 1.0
Glucose 112 H
Calcium 10.3 H
Vital Signs:
Vital Signs
Temp Pulse Resp BP Pulse Ox
97.9 F 115 18 117/74 96
12/14/24 07:10 12/14/24 09:42 12/14/24 07:10 12/14/24 09:42 12/14/24 08:15
I&O
12/13/24 12/14/24 12/15/24
06:59 06:59 06:59
Intake Total 480 / 480 480 / 480
Balance 480 / 480 480 / 480
Review of Systems
-
All other systems: Reviewed and negative
Physical Exam
-
General: No Apparent Distress
HEENT: Moist Mucous Membranes and PERRLA
Respiratory: Clear to Auscultation; Negative Wheezes, Rales or Rhonchi
Cardiac: Regular Rhythm and S1/S2; Negative Murmur, Rub or Gallop
GI: Nontender, Normal Bowel Sounds, Distended (Feels gassy rather than fluid) and Organomegaly
Musculoskeletal: No Clubbing and No Cyanosis
Skin: Warm and Dry; Negative Rash, Ulcers or Lesions
Neuro: Awake and AO x 3
Psych: Calm
Data Reviewed
-
Ultrasound: Report Reviewed by me, Discussed with Physician and Discussed with Patient
Labs: Labs Reviewed by me, Discussed with Physician and Discussed with Patient
[2024-12-14] MEDS: NSS 1000 IV ×2 (13:41→21:44)
--- NOTE | 2024-12-14 15:53 | W.PN.NEPH.PH ---
Today's Communication / Plan
-
1 L normal saline
Assessment/Plan
-
Assessment
Hypervolemic hyponatremia
Anemia
Metastatic breast cancer with mets to liver, bile duct, lungs
Recurrent ascites
Plan
Status post hypertonic saline
follow BMP
Fluid restriction, increase dietary protein
Unfortunately her kidney function is increasing and her sodium is decreased despite anasarca we will give her 1 L of normal saline as discussed with the nurse.
Eventually restart diuretics
Unfortunately prognosis is poor overall
-
-
Date of Service: December 14, 2024
CC / HPI / ROS
-
Chief Complaint:
hyponatremia
History of Present Illness:
Hyponatremia
BP stable
Hgb stable 8.9
Review of Systems:
no CP/SOB
Labs
-
Labs:
WBC 19.2 10^3/uL (4.8-10.8) H 12/14/24 05:33
RBC 3.18 10^6/uL (4.20-5.40) L 12/14/24 05:33
Hgb 8.2 g/dL (12.0-16.0) L 12/14/24 05:33
Hct 26.0 % (37.0-47.0) L 12/14/24 05:33
Plt Count 513 10^3/uL (130-400) H 12/14/24 05:33
Sodium 127 mmol/L (135-145) L 12/14/24 05:33
Potassium 5.5 mmol/L (3.5-5.1) H 12/14/24 05:33
Chloride 100 mmol/L (98-107) 12/14/24 05:33
Carbon Dioxide 18 mmol/L (22-30) L 12/14/24 05:33
BUN 24 mg/dl (7-17) H 12/14/24 05:33
Creatinine 1.0 mg/dL (0.6-1.0) 12/14/24 05:33
eGFR > 60.00 12/14/24 05:33
Glucose 112 mg/dl (70-99) H 12/14/24 05:33
Calcium 10.3 mg/dl (8.4-10.2) H 12/14/24 05:33
Albumin 2.8 g/dl (3.5-5.0) L 12/12/24 05:22
Physical Exam
-
Vital Signs:
Vital Signs
Temp Pulse Resp BP Pulse Ox
97.7 F 107 16 125/81 97
12/14/24 11:40 12/14/24 11:40 12/14/24 11:40 12/14/24 11:40 12/14/24 11:40
Cardiovascular:: Regular rate and rhythm
Respiratory:: Bilateral: CTA
Lung Excursion:: Normal
Abdomen:: Nontender and Soft
Bowel Sounds:: Normal
Extremity Edema:: +3: Bilateral:
[2024-12-14] MEDS: TOPROL XL 12.5 MG PO (17:48)
[2024-12-14] MEDS: LOVENOX 40 MG SC (17:48)
[2024-12-14] MEDS: MYLICON 80 MG PO (17:57)
[2024-12-14] MEDS: DILAUDID 0.5 MG IV (19:59)
[2024-12-15] VITALS (25 sets, daily range): BP systolic 68–127; BP diastolic 32–93; BMI 23.2
[2024-12-15] MEDS: STERILE WATER FOR INJECTION IV (01:10)
[2024-12-15] MEDS: ROXICODONE 10 MG PO (02:10)
[2024-12-15 05:08] LABS: Hematocrit 23.7 % (37.0-47.0); Hemoglobin 7.4 g/dL (12.0-16.0); Mean Corp Hgb Conc. 31.2 g/dL (33.0-37.0); Mean Corpuscular Volume 83.7 fL (81.0-99.0); Nucleated Red Blood Cells % 0.8 %; Platelet Count 573 10^3/uL (130-400); Red Cell Dist. Width 17.8 % (11.5-14.5)
[2024-12-15 05:34] LABS: ALT (SGPT) 310 U/L (0-35); AST (SGOT) 641 U/L (14-36); Albumin 2.8 g/dl (3.5-5.0); Alkaline Phosphatase 752 U/L (38-126); Blood Urea Nitrogen 36 mg/dl (7-17); Calcium 9.8 mg/dl (8.4-10.2); Carbon Dioxide 14 mmol/L (22-30); Chloride 102 mmol/L (98-107); Estimated Creatinine Clearance 44 ml/min; Glucose 100 mg/dl (70-99); Potassium 6.9 mmol/L (3.5-5.1); Sodium 129 mmol/L (135-145); Total Protein 5.5 g/dl (6.3-8.2); eGFR 47.58
--- NOTE | 2024-12-15 05:53 | W.PN.UPDATE ---
Update Note
Progress Note Update
-K level this am is 6.9, carbon dioxide 14.
-AST 641 this am previously 130, abdomen distended associated with nausea, will order complete abdomen ultrasound.
-Hyperkalemia protocol insulin/ Dextrose and sodium bicarb 50 meq ordered.
-Will repeat BMP in 4 hrs
[2024-12-15 06:08] LABS: Glucose - Point of Care 88 mg/dl (70-99)
[2024-12-15] MEDS: SODIUM BICARBONATE 50 MEQ IV ×2 (06:09→11:25)
[2024-12-15] MEDS: DEXTROSE 50% SYRINGE 25 GRAMS IV ×2 (06:09→16:45)
[2024-12-15] MEDS: ZOFRAN 4 MG IV (06:27)
[2024-12-15] MEDS: NOVOLIN R 0.05 UNITS IV (06:30)
--- NOTE | 2024-12-15 06:34 | PTCARENOTE ---
pt k=6.9 pt has no c/o at this time. informed PURCHASING BUYER Mary - instructed to give medications- see MAR. accucheck =88; updated PURCHASING BUYER re: orders. finished med administration at 0630. recheck accuchecks at 0730, 0830, 1030, and 1230 per protocol.
[2024-12-15] MEDS: DILAUDID 0.5 MG IV (07:00)
[2024-12-15 07:35] LABS: Glucose - Point of Care 121 mg/dl (70-99)
[2024-12-15] MEDS: LOKELMA 10 GRAM PO (07:48)
--- NOTE | 2024-12-15 08:21 | W.PN.HOSP.TC ---
Addendum entered and electronically signed by Johana Costello MD 12/15/24 12:45:
transferring pt to IMU for more intensive monitoring. Inc WOB due to abd distention.
Addendum entered and electronically signed by Johana Costello MD 12/15/24 11:54:
Discussed with pharmacy, her AST elevation could be toxicity/drug-induced liver injury from the ceftriaxone course she received. Will continue to trend.
Original Note:
Today's Communication/Plan
-
AGMA recd sodium bicarb x1, another dose ordered
hyperkalemia - insulin/dextrose, bicarb, lokelma x1, recheck BMP K is 6, lokelma again ordered
Abdominal distention - abdominal ultrasound for ascites check shows mod ascites - para ordered.
AST 641 - reconsult GI, check ck, lipase, check med list for toxicity
Assessment / Plan
Assessment / Plan
Recurrent ascites
Transaminitis and hyperbilirubinemia
cytology positive for malignant cells
Has biliary disease s/p stenting with 2 stent exchange planned for December 24. T. bili has gone up on 12/09, no evidence of ductal dilation on abdominal ultrasound. Hyperbilirubinemia has improved, transaminitis remains. AST worsened 12/15 to 641
suddenly, >900 on repeat
In ED, s/p 2.5 L paracentesis
Initial ascitic fluid shows a WBC count of 287/microL, straw colored fluid. The ANC = 22 /microL which is non-diagnostic for SBP or secondary bacterial peritonitis and sbp is unlikely. Fluid cx no growth to date.
Empiric ceftriaxone started (5 day course). Blood culture no growth to date
Repeat para 12/09, 2.2 L removed. Follow-up fluid culture. Cytology positive malignant cells. Noted leukocytosis persists, patient is afebrile.
- pain control and antiemetics. IV dilaudid and oral oxy prn for pain
- spironolactone 50 daily for now--> hold for hyperkalemia
- Lactulose 3 times daily as patient has been constipated
- free water restriction 1.5 mL
Appreciate GI eval, they have signed off, have reconsulted given acute issues today 12/15, d/w GI tile conduit layer will need to eval for other causes. d/w pharmacy to check med list for heptotoxic agents
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
--> pt will need outpt PRN paracentesis arranged by oncology.
d/w GI, consider lasix 20/spironlactone 50 once Na normalized
Abdominal distention - repeat ultrasound to eval for ascites/repeat para showed mod ascites, ordered paracentesis
Hyperkalemia
per protocol
lokelma
repeat BMP 6.9-->6, repeat dose
hold spironolactone
Anion gap metabolic acidosis
corrects to 16
s/p 50meQ sodium bicarb
CO2 12 on repeat, give another dose
Metastatic Breast Ca
On Truqap 200 q 2 mon-mon, off for 3 days. Letrozole 2.5 daily
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
Secondary malignant neoplasm of right lung
Reviewed PET scan from spring
Follows up with oncology at [facility], requested records
appreciate onc eval - no further inpt test/meds, pt will attempt salvage therapy vs palliative
oxycodone prn pain
Anemia
likely 2/2 underlying malignancy
Hemoglobin 11.7 in October, down to 6.7
Transfused 1 unit PRBC improved to 9.3 --> now back down to 7.4. monitor h/h q8, transfuse if Hgb <7
Hyponatremia
hypervolemic, urine sodium less than 5
- free water restriction as above
Continue to monitor sodium
Worsened to 122, consulted nephrology, treated with 3% bolus x 2 days, and initially improved to 129, then back down to 127, rec'd 1L NS per neph, back up to 129. Have d/w neph not too many options as pt very sick.
per nephrology, ordered 80mg IV x1
Adjustment disorder with depressed mood/pain
- conitnue abilify and adderal
- continue suboxone , prn oxy for breakthrough
Sinus tachycardia
Continue metoprolol
Monitor, persistent
Malnutrition
poor oral intake
nutrition consult
megace has been helping
ensure
DVT PPX -Lovenox
Code status - Full code
Anticipated Discharge: Within 24 hours
Subjective/Interval History
-
Date of Service: December 15, 2024
Hyperkalemic overnight, rec'd insulin/dextrose and sodium bicarb
ordering lokelma this AM
pt feels abd pain/distention, very uncomfortable
Objective Data
-
Labs:
Laboratory Results
12/15/24 12/15/24
04:41 08:19
WBC 20.3 H
Hgb 7.4 L
Hct 23.7 L
Plt Count 573 H
Sodium 129 L Pending
Potassium 6.9 H* D Pending
Chloride 102 Pending
Carbon Dioxide 14 L* Pending
BUN 36 H Pending
Creatinine 1.4 H Pending
Glucose 100 H Pending
Calcium 9.8 Pending
Total Bilirubin 1.0
AST 641 H*
ALT 310 H
Alkaline Phosphatase 752 H
Vital Signs:
Vital Signs
Temp Pulse Resp BP Pulse Ox
97.7 F 116 16 104/66 100
12/15/24 02:47 12/15/24 02:47 12/15/24 02:47 12/15/24 02:47 12/15/24 02:47
I&O
12/14/24 12/15/24 12/16/24
06:59 06:59 06:59
Intake Total 480 / 480 480 / 480
Balance 480 / 480 480 / 480
Review of Systems
-
All other systems: Reviewed and negative
Physical Exam
-
General: No Apparent Distress and Appears in Distress
HEENT: Moist Mucous Membranes and PERRLA
Respiratory: Clear to Auscultation; Negative Wheezes, Rales or Rhonchi
Cardiac: Regular Rhythm and S1/S2; Negative Murmur, Rub or Gallop
GI: Nontender, Normal Bowel Sounds, Distended (tense) and Organomegaly
Musculoskeletal: No Clubbing, No Cyanosis and Other (mild B/L LE edema)
Skin: Warm and Dry; Negative Rash, Ulcers or Lesions
Neuro: Awake and AO x 3
Psych: Calm
Data Reviewed
-
Ultrasound: Report Reviewed by me, Discussed with Physician and Discussed with Patient
Labs: Labs Reviewed by me, Discussed with Physician and Discussed with Patient
[2024-12-15 08:49] LABS: Glucose - Point of Care 119 mg/dl (70-99)
[2024-12-15 09:10] LABS: Lipase 154 U/L (23-300)
[2024-12-15 09:42] LABS: Albumin 2.7 g/dl (3.5-5.0); Alkaline Phosphatase 685 U/L (38-126); Blood Urea Nitrogen 38 mg/dl (7-17); Calcium 10.0 mg/dl (8.4-10.2); Carbon Dioxide 12 mmol/L (22-30); Chloride 101 mmol/L (98-107); Estimated Creatinine Clearance 39 ml/min; Glucose 105 mg/dl (70-99); Potassium 6.0 mmol/L (3.5-5.1); Sodium 129 mmol/L (135-145); Total Protein 5.5 g/dl (6.3-8.2); eGFR 40.53
[2024-12-15 09:45] LABS: ALT (SGPT) 356 U/L (0-35); AST (SGOT) 905 U/L (14-36)
[2024-12-15] MEDS: NICODERM TRANSDERMAL 14 MG TRANSDERM (09:50)
[2024-12-15] MEDS: DUPHALAC/CHRONULAC 20 GRAMS PO (09:51)
[2024-12-15] MEDS: ABILIFY 5 MG PO (09:51)
[2024-12-15] MEDS: PROTONIX 40 MG PO (09:51)
[2024-12-15] MEDS: MEGACE ORAL SUSPENSION 800 MG PO (09:51)
[2024-12-15] MEDS: FEMARA 2.5 MG PO (09:52)
[2024-12-15] MEDS: ZOLOFT 200 MG PO (09:53)
[2024-12-15] MEDS: COLACE 100 MG PO (09:53)
[2024-12-15] MEDS: SUBUTEX 12 MG SL (10:03)
[2024-12-15 11:09] LABS: Glucose - Point of Care 100 mg/dl (70-99)
[2024-12-15] MEDS: LASIX 80 MG IV (11:24)
[2024-12-15] MEDS: DILAUDID 1 MG IV (11:25)
[2024-12-15] MEDS: REGLAN PO ×3 (12:19→21:03)
[2024-12-15 12:36] LABS: Glucose - Point of Care 84 mg/dl (70-99)
--- NOTE | 2024-12-15 14:31 | PTCARENOTE ---
Received patient from 4th floor. Patient able to take a few steps to the bed. Patient is alert and oriented. Patient having severe abdominal discomfort and fullness. Patient BP 87/[phone] 93.5 rectal temperature. Patient unable to find a
comfortable position in the bed. Labs obtained by VAT team upon arrival. Oriented patient to room. MD notified of patient status.
[2024-12-15 14:36] LABS: Venous Blood Gas B.E. -25.2 mmol/L (-4 to +4); Venous Blood Gas O2 Sat % 99.3 %
[2024-12-15 14:38] LABS: Hematocrit 22.7 % (37.0-47.0); Hemoglobin 6.3 g/dL (12.0-16.0)
[2024-12-15 14:47] LABS: Blood Urea Nitrogen 37 mg/dl (7-17); Calcium 10.2 mg/dl (8.4-10.2); Carbon Dioxide < 5 mmol/L (22-30); Chloride 101 mmol/L (98-107); Estimated Creatinine Clearance 31 ml/min; Glucose 89 mg/dl (70-99); Potassium 6.7 mmol/L (3.5-5.1); Sodium 131 mmol/L (135-145); eGFR 26.22
--- NOTE | 2024-12-15 14:55 | PTCARENOTE ---
Received critical labs results hemoglobin 6.3 and venous blood gas PH 6.95 MD notified. Rapid response called. Dr. Edmonds to floor and patient transferred to ICU.
[2024-12-15 14:59] LABS: Glucose - Point of Care 98 mg/dl (70-99)
[2024-12-15] MEDS: NSS 250 IV (15:05)
[2024-12-15 15:24] LABS: INR 2.43; PT 26.5 Sec (11.4-14.6)
[2024-12-15 15:25] LABS: APTT 65.3 Sec (23.4-35.0); Hematocrit 22.2 % (37.0-47.0); Hemoglobin 6.0 g/dL (12.0-16.0); Mean Corp Hgb Conc. 27.0 g/dL (33.0-37.0); Mean Corpuscular Volume 93.3 fL (81.0-99.0); Platelet Count 500 10^3/uL (130-400); Red Cell Dist. Width 18.6 % (11.5-14.5)
[2024-12-15] MEDS: SOLU-CORTEF 100 MG IV (15:25)
[2024-12-15 15:27] LABS: Albumin 2.5 g/dl (3.5-5.0); Alkaline Phosphatase 529 U/L (38-126); Blood Urea Nitrogen 36 mg/dl (7-17); Calcium 10.4 mg/dl (8.4-10.2); Carbon Dioxide < 5 mmol/L (22-30); Chloride 101 mmol/L (98-107); Estimated Creatinine Clearance 30 ml/min; Glucose 84 mg/dl (70-99); Potassium 6.9 mmol/L (3.5-5.1); Sodium 131 mmol/L (135-145); Total Protein 5.1 g/dl (6.3-8.2); eGFR 24.92
--- NOTE | 2024-12-15 15:27 | W.PN.UPDATE ---
Update Note
Progress Note Update
Rapid response called for hypotension and shortness of breath
On arrival patient was already wheeled into ICU from IMU.
ICU team at bedside including biological science technician.
Due to significant tachypnea and shortness of breath and pH of 6.9 and severe acidosis ICU team getting ready to intubate her.
Patient is very lethargic. Did say that she has trouble with the breathing and also she has abdominal pain. Cannot obtain much history due to critical nature of her current situation.
She was satting below on nonrebreather, hypotensive
Abdomen distended and tense.
Upon drop of ET tube a lot of dark secretions aspirated unclear if she aspirated.
NG tube got pulled and she has significant amount of dark blood aspirated. Slight tinge of blood is noted as well.
Patient with a metastatic breast cancer with mets to liver, mesentery, and tumor thrombus causing portal vein thrombosis.
Critically ill with hypotensive shock and acute respiratory failure.
Continue with vent support. Obtain stat abdominal and chest x-ray.
Ordered 2 units of PRBC stat. Ordered PPI infusion and octreotide infusion. H&H will be monitored. Discussed with GI who will review the case
Patient received bicarb fluids with significant acidosis and hyperkalemia. Creatinine jumped up to 2.3. Discussed with the nephrology who will take a look at her.
Called significant other Jl and updated the chart of event and critical nature of her current situation. He is made aware about intubation, GI bleed, severe acidosis, developing SHANNEN. Prognosis is guarded.
Discussed with ICU team including biological science technician.
Total Critical Care Time___32 minutes. I was immediately available to the patient and staff. I personally examined, reviewed labs, diagnostic images/reports, interpretations, treatment plans, discussed patient care with other providers and family
or caregivers (if patient is unable to make decisions), entered orders as appropriate and documented the medical record.
[2024-12-15 15:42] LABS: ALT (SGPT) 397 U/L (0-35); AST (SGOT) 1170 U/L (14-36)
[2024-12-15 15:46] LABS: B.E. -22.8 mmol/L; O2 Saturation % 100.0 % (94-98); PCO2 26 mmHg (32-35); PO2 161 mmHg (83-108)
[2024-12-15 15:48] LABS: HCO3 6.4 mmol/L (21-28)
--- NOTE | 2024-12-15 15:59 | W.PN.NEPH.PH ---
Today's Communication / Plan
-
ERGONOMICS ENGINEER
Assessment/Plan
-
Assessment
Hypervolemic hyponatremia
Anemia
Metastatic breast cancer with mets to liver, bile duct, lungs
Recurrent ascites
Plan
Significant decline in clinical status rapid response patient intubated severe metabolic acidosis NG tube placed bloody drainage.
Requiring pressor support
Severe metabolic acidosis 6.9
I discussed with all medical providers involved and placed a call to her significant other Jl about the poor prognosis at best.
At this time until further decisions are made we will continue with aggressive therapy despite her comorbid conditions leading up to this.
She will require ERGONOMICS ENGINEER
Orders placed
Director Health to place access
Total Time Spent with Patient (in minutes): 75-minute
-
-
Date of Service: December 15, 2024
CC / HPI / ROS
-
Chief Complaint:
hyponatremia
History of Present Illness:
Hyponatremia initial consultation now with worsening clinical status in the ICU intubated acute kidney injury on pressor support
Review of Systems:
Unable to obtain patient intubated
Labs
-
Labs:
WBC 23.1 10^3/uL (4.8-10.8) H 12/15/24 Unknown
RBC 2.38 10^6/uL (4.20-5.40) L 12/15/24 Unknown
Hgb 6.0 g/dL (12.0-16.0) L* 12/15/24 Unknown
Hct 22.2 % (37.0-47.0) L 12/15/24 Unknown
Plt Count 500 10^3/uL (130-400) H 12/15/24 Unknown
Sodium 131 mmol/L (135-145) L 12/15/24 Unknown
Potassium 6.9 mmol/L (3.5-5.1) H* 12/15/24 Unknown
Chloride 101 mmol/L (98-107) 12/15/24 Unknown
Carbon Dioxide < 5 mmol/L (22-30) L* 12/15/24 Unknown
BUN 36 mg/dl (7-17) H 12/15/24 Unknown
Creatinine 2.4 mg/dL (0.6-1.0) H 12/15/24 Unknown
eGFR 24.92 12/15/24 Unknown
Glucose 84 mg/dl (70-99) 12/15/24 Unknown
Calcium 10.4 mg/dl (8.4-10.2) H 12/15/24 Unknown
Albumin 2.5 g/dl (3.5-5.0) L 12/15/24 Unknown
Physical Exam
-
Vital Signs:
Vital Signs
Temp Pulse Resp BP Pulse Ox
93.5 F L 119 30 95/37 99
12/15/24 14:10 12/15/24 15:12 12/15/24 15:12 12/15/24 15:12 12/15/24 15:13
--- NOTE | 2024-12-15 16:30 | PTCARENOTE ---
Pt received emergently into Rm [id number] at [address] Houston at bedside and preparations made to intubate pt. Resp Therapy present. 2 amps NaHCO4 IV and 1gm Calcium given per verbal order Dr Houston. Pt minimally responsive to all
stimuli with agonal respirations. 100% NRB in use, POx 70-80's. HR 120-130's. ST. Pt medicated w/ Etomidate 18mg IV and Rocuronium 60mg IV per verbal order Dr Houston who was at bedside preparing to intubate pt. As meds being administered, pt w/
large amount of dark emesis. Immediately turned onto Rt side and orally suctioned. Dr Houston then able to successfully intubate w/ #7.5 ETT, 22cm Rt lip. Placement confirmed w/ color change and auscultation. Pox 99%. Pt placed on vent by Resp
Therapy on settings ordered by Dr Houston: AC-30/450/.50/+5. Greenlee Sump then placed by RN - 55cm at Rt nare- placed to suction w/ brisk return of 775ml dark becoming maroon drainage. Pt's SBP into 70's following intubation. Levophed gtt started at
[address] Houston and titrated quickly to achieve MAP >65. 500ml NS bolus administered per order Dr Houston. Dr Houston remained at bedside and placed Rt radial Dang at 1522. Vasopressin gtt started at 1524 per order for BP support. 1550 pt's SBP
dropping despite increased vasopressor support- Dr Houston in room and verbal order for HCO3 1amp given w/ almost immediate improvement in SBP from 70's to 90's. 1615 pt given additional 1amp HCO3 IV per verbal order Dr Houston at bedside . By 1630 "Aisha"Rosemarie had finished placing Rt IJ HD catheter w/ pigtail. HCO3 gtt started w/ additional IV access (pt arrived to room w/ only Rt SC port as functional IV access). Gutierrez catheter placed per order to monitor u/o- return of approximately 10ml clear
yellow urine when placed.
[2024-12-15] MEDS: NSS 1000 IV ×2 (16:35→20:16)
[2024-12-15 16:36] LABS: Nucleated Red Blood Cells % 1.2 %
[2024-12-15 16:37] LABS: Anisocytosis 1+; Macrocytosis 1+; Normal RBC Morphology No
[2024-12-15 16:38] LABS: Hypochromasia 2+
[2024-12-15] MEDS: SODIUM BICARBONATE 1150 MEQ IV ×2 (16:38→22:43)
[2024-12-15 16:41] LABS: Burr Cells 2+
[2024-12-15] MEDS: DUPHALAC/CHRONULAC PO ×2 (16:41→21:02)
[2024-12-15] MEDS: NOVOLIN R 5 UNITS IV (16:43)
[2024-12-15] MEDS: SANDOSTATIN 250 MCG IV (16:53)
[2024-12-15 16:56] LABS: Triglycerides 116 mg/dl (10-149)
--- NOTE | 2024-12-15 16:57 | CON.INTV ---
Consultation
Consultation Request
Date/Time Consultation Requested: 12/15/2024
Date/Time Consultation Performed: 12/15/2024
Medical History
-
Chief Complaint: Hypoxia and hypotension
History of Present Illness:
'I was emergently called by nursing staff as patient was wheeled from IMU unit to ICU. Patient appeared cyanotic, had agonal breathing, was saturating around 70% on nonrebreather. She was emergently placed in the ICU room. In the meantime blood
gas results came back showing a pH of 6.9 with severe hyperkalemia. Patient emergently was given 2 ampoules of sodium bicarbonate pushes along with IV calcium bicarbonate and she was emergently intubated to protect airway.'
Per review of records, patient is a 44-year old female who unfortunately has severe metastatic breast cancer, originally diagnosed in 2019 who presented to the hospital with increasing abdominal distention and discomfort. She was noted to have
ascites and had a IR guided paracentesis performed and the fluid cytology is positive for malignant cells. She has been evaluated by oncology, gastroenterology and nephrology service during this hospital stay. Patient progressively developing
worsening renal function and this morning was noted to be more hyperkalemic. She received an amp of bicarb, insulin/dextrose with plan to recheck BMP in about 6 hours. Lokelma was also ordered. Patient was upgraded to IMU for more intensive
monitoring in view of increased work of breathing due to abdominal distention. Once patient was in IMU, a rapid response alert was called and ICU nursing found the patient to be cyanotic, agonal and hypoxic. She was emergently wheeled to ICU and
then was intubated, mechanically ventilated and started on pressors. In view of shock and respiratory failure gauger chief delivery consultation was requested for further input.
Past Medical History
Past Medical History: Reports Cancer (Breast cancer)
Past Surgical History: Reports Other (Left breast mastectomy)
Social History
Tobacco: Vaping
Alcohol: None
Drug: None
Family History
Family History: Not pertinent
Allergies / Home Medications
Allergies / Home Medications
Allergies
Allergy/AdvReac Type Severity Reaction Status Date / Time
No Known Allergies Allergy Verified 12/07/24 20:00
Home Medications
�Medication �Instructions �Recorded �Confirmed �Last Taken �Type
aripiprazole 5 mg tablet 5 mg PO DAILY Mental Health/Anxiety 12/07/24 12/07/24 Unknown History
buprenorphine 8 mg-naloxone 2 mg 1.5 film buccal DAILY Substance 12/07/24 12/07/24 Unknown History
sublingual film (Suboxone) abuse disorder
capivasertib 200 mg tablet (Truqap) 200 mg PO Q12H Cancer 12/07/24 12/07/24 Unknown History
dextroamphetamine-amphetamine 15 15 mg PO DAILY PRN adhd 12/07/24 12/07/24 Unknown History
mg tablet (Adderall)
dextroamphetamine-amphetamine ER 20 mg PO DAILY ADHD 12/07/24 12/07/24 Unknown History
20 mg 24hr capsule,extend release
(Adderall XR)
letrozole 2.5 mg tablet 2.5 mg PO DAILY Cancer 12/07/24 12/07/24 Unknown History
metoprolol succinate 25 mg 12.5 mg PO DAILY Blood Pressure 12/07/24 12/07/24 Unknown History
tablet,extended release 24 hr
sertraline 200 mg capsule 200 mg PO DAILY Depression 12/07/24 12/07/24 Unknown History
spironolactone 50 mg tablet 50 mg PO TID Fluid 12/07/24 12/07/24 Unknown History
Retention/Swelling
Review of Systems
-
Unable to Obtain full review of systems at this time due to: Patient Intubation
Vitals / Labs / Diagnostic Testing
Vital Signs
Temp Pulse Resp BP Pulse Ox
93.5 F L 119 30 95/37 99
12/15/24 14:10 12/15/24 15:12 12/15/24 15:12 12/15/24 15:12 12/15/24 15:13
Lab Data
12/15/24 Unknown
12/15/24 Unknown
Laboratory Results
12/15/24 12/15/24
15:36 Unknown
PT 26.5 H
INR 2.43
APTT 65.3 H
pH 7.00 L*
pCO2 26 L
pO2 161 H
HCO3 6.4 L*
O2 Delivery Level
Microbiology
12/07/24 23:30 Blood/Venous Blood Culture - Final
No Growth - Final Report
12/07/24 23:30 Blood/Venous Blood Culture - Final
No Growth - Final Report
Diagnostic Testing:
Physical Exam
-
HEENT: Normocephalic (Cachectic and ill-appearing) and Other (Cyanotic on initial presentation, dry looking oral mucosa)
Cardiovascular: S1/S2
Respiratory: Rhonchi
GI: Distended
Neurology: Other (Patient was agonal and minimally responsive on initial presentation)
Skin: Other (Cold, clammy, cyanotic)
General: Respiratory Distress
Assessment
-
#1. Acute hypoxic respiratory failure, agonal breathing on arrival
- On initial evaluation, patient cyanotic, agonal breathing, saturations in 70% on nonrebreather, minimally responsive
- Emergently intubated 12/15, mechanically ventilated now. Continue hyperventilation in view of acidosis, 450/30/50%/5
- Serial ABG
- Stat chest x-ray, concern for aspiration with large volume coffee-ground emesis
#2. Severe metabolic acidosis
- Severely elevated lactate at 23 on initial presentation, initial pH 6.95
- 2 A of sodium bicarbonate were given stat as well as IV calcium prior to emergent intubation
- Additional sodium bicarbonate pushes given followed by initiation of sterile water with 3 A of bicarbonate infusion at 150 mL/h
- Concern for bowel ischemia with severely elevated lactate, abdominal distention and coffee-ground emesis
- Patient very unstable for a safe imaging at this point
- Continue aggressive fluid resuscitation, close to 1.5 L bolus given, continue pressor support with Levophed and vasopressin, serial lactate, serial ABGs
- Stat nephrology consultation placed, decision made to proceed with renal replacement therapy, emergent placement of dialysis catheter
#3. Shock, unclear etiology
- Patient having large-volume coffee-ground emesis on placement of NG tube suggestive of GI bleed, also hypothermic, severely acidotic with as elevated lactate. Additional consideration are septic shock, bowel ischemia, SBP versus others
- Continue aggressive IV hydration, start sodium bicarb and pushes, sterile water with bicarbonate infusion
- Continue Levophed and vasopressin to keep MAP above 65
- Draw blood cultures stat, initiate broad-spectrum antibiotic including IV vancomycin and piperacillin with tazobactam
#4. Acute renal failure with hyperkalemia
- On initial presentation to ICU in view of severe acidosis patient was given stat IV bicarbonate push along with calcium prior to intubation
- Additional bicarbonate pushes and bicarbonate infusion started along with volume resuscitation
- Avoid hypotension, target MAP above 65
- Emergent hemodialysis access catheter placed, plan to initiate CRRT, discussed with nephrology service
#5. Acute liver injury
- Suspect shock liver
- Continue to monitor liver function test
#6. Coagulopathy with suspect upper GI bleed
- Coffee-ground emesis noted during intubation as well as on NG tube placement, large-volume
- Hemoglobin has dropped by more than 2 points
- Stat 2 units of blood transfusion given, GI consult
- Protonix bolus followed by infusion, continue octreotide bolus and infusion
- Serial H&H
- 10 mg vitamin K IV stat, transfuse 4 units of fresh frozen plasma in view of coagulopathy, check fibrinogen level if low will give cryoprecipitate
- Abdominal significantly distended, paracentesis performed in the past, large volume ascites noted
- Will pursue CT chest once patient is more stable to go to radiology for scanning
#7. Metastatic breast cancer.
- Patient has ER/AZ positive, H ER 2 positive invasive ductal carcinoma. Unfortunately extensive metastatic disease, follows up with oncology in [facility]
- Oncology service on case. Very poor prognosis
Other medical diagnoses:
- Hyponatremia
- Ascites, malignant
- Liver cirrhosis with extensive metastasis
- Portal vein thrombosis
- Omental metastasis
- Common bile duct stents
- Rib metastasis
Called the contact finger assembler listed, Jl Uribe, . Updated regarding patient's current critical condition and recommended that family should come see the patient as she might not survive this critical illness.
Critical Care time 95 mins -- The patient is admitted for acute critical illness for the treatment of vital organ failure and/or prevention of further life-threatening conditions. Total care includes time spent in review of history, physical exam,
medications, hemodynamic/ventilator parameters, laboratory data, imaging and discussion with house staff, pharmacy, respiratory therapy, materials recycler, and nursing.
Care coordinated with nephrology service, hospitalist team as well as gastroenterology service.
Data:
US 11/2024: There is at least moderate ascites in the abdomen, adequate volume for paracentesis.
CXR 11/2024: No acute abnormality noted
CT A/P 11/2024: Innumerable liver metastases. Thrombosis of the portal vein at the confluence of the right and left portal veins, likely reflecting tumor thrombus. The more distal portal vein is patent, and the splenic and superior mesenteric veins
are patent.
Ill-defined omental soft tissue attenuation at midline raising concern for omental metastases.
Masslike enlargement of both ovaries raising concern for ovarian metastatic disease. Treatment related changes would be an alternative consideration.
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
Hepatic cirrhosis.
Common bile duct stents in place.
Mild abdominopelvic ascites.
Other chronic findings, as detailed above.
--- NOTE | 2024-12-15 16:58 | OR.RPT ---
Operative Report
Operative Report
Rapid sequence intubation
Indication. Patient agonal, severely acidotic, cyanotic, severely hypoxic and hypotensive
Pre-medications: None
Patient was placed in supine position. Nonrebreather was used to preoxygenate, subsequently [id number] ventilation was applied as patient saturations were around 97%. 18 mg of Etomidate was given as an induction agent followed by 60 mg of
Rocuronium as paralytic. Oral suctioning was performed which showed large volume of coffee ground emesis. Patient was tilted to her side and then placed in Colon position with her head end up to prevent aspiration into the airway. GlideScope was
used, blade size #3, grade 1 view of vocal cords was obtained and ET tube, 7.5, was advanced under direct visualization without any difficulty. Color change was confirmed and patient was bagged until saturations were around 94%. Subsequently
patient was connected to ventilator. Bilateral good air entry noted. Tube was secured at 22 cm at the teeth. Continued large volume of coffee ground emesis was suctioned.
Time spent: 25 min
Complications: None
Date of Service: 12/15/2024
[2024-12-15] MEDS: SANDOSTATIN 50 MCG IV (17:00)
--- NOTE | 2024-12-15 17:01 | OR.RPT ---
Operative Report
Operative Report
Right IJ Temporary Dialysis Catheter placement
Indication: Acute renal failure, severe acidosis, hyperkalemia and emergent need for dialysis access
Consent: Emergent procedure, life threatening acidosis.
Time-out was performed and patient was placed in Trendelenburg position. Ultrasound was used to assess patency of Right IJ vein. Under sterile conditions area was cleaned with chlorhexidine and then a full body drape was placed. Under real-time
ultrasound guidance, long axis view, the needle was inserted and vein was punctured, once blood was aspirated, syringe was removed and guidewire was advanced which did not meet any resistance. Subsequently needle was withdrawn and guidewire was
left in place. Ultrasound was used again to confirm presence of guidewire inside the vein lumen. A small violet was placed at the skin and a dilator was advanced to about 50% of its length. Serial dilation was performed with 3 different dilators.
Dilator was then removed and Dialysis catheter was advanced over guidewire and subsequently guidewire was removed. All 3 ports were capped and they were easy to flush and were withdrawing blood without any resistance. Catheter was sutured to the
skin and dressing was applied.
Ultrasound of the lungs was performed and good lung sliding was obtained. Patient stayed hemodynamically stable through the procedure.
Complications: None
Time spent: 25 min
Date of Procedure: 12/15/2024
--- NOTE | 2024-12-15 17:04 | OR.RPT ---
Operative Report
Operative Report
Right Femoral Central Line placement
Indication: Shock, need central access for multiple pressors. Lack if peripheral IV access
Consent: Emergent procedure, life threatening critical illness
(Patient already has a Right sided Med Port for chemotherapy and another Right IJ Trialysis catheter hence Femoral site was chosen for the central line)
Time-out was performed and patient was placed in supine position. Ultrasound was used to assess patency of right Femoral vein. Under sterile conditions area was cleaned with chlorhexidine and then a full body drape was placed. Under real-time
ultrasound guidance, long axis view, the needle was inserted and vein was punctured, once blood was aspirated, syringe was removed and guidewire was advanced which did not meet any resistance. Subsequently needle was withdrawn and guidewire was
left in place. Ultrasound was used again to confirm presence of guidewire inside the vein lumen. A small violet was placed at the skin and a dilator was advanced to about 50% of its length. Dilator was removed and central venous catheter was
advanced over guidewire and subsequently guidewire was removed. All 3 ports were capped and they were easy to flush and were withdrawing blood without any resistance. Central line was sutured to the skin and dressing was applied.
Complications: None
Blood loss: 1-2 ml
Time spent: 25 min
Date of service: 12/15/2024
[2024-12-15] MEDS: VANCOCIN 530 MG IV (17:39)
--- NOTE | 2024-12-15 17:47 | OR.RPT ---
Operative Report
Operative Report
Right Radial Arterial catheter placement
Emergent procedure. Need for invasive Blood pressure monitoring.
Bedside ultrasound was used to confirm patency of right radial artery. Under sterile condition area was subsequently cleaned and a drape was placed. Under direct ultrasound visualization,, radial artery was cannulated. Once blood was noted in the
chamber guidewire was advanced. Arterial catheter was subsequently advanced over the guidewire, and then guidewire was removed. Pressure tubing was subsequently attached to the catheter and arterial waveform was noted on the monitor. Subsequently
a dressing was placed.
Complications: None
Date of service: 12/15/2024
--- NOTE | 2024-12-15 17:50 | PTCARENOTE ---
Rt femoral triple lumen catheter placed at bedside by Dr Houston at 1700 for additional IV access as pt ordered multiple incompatible medications including blood products. Pt's BP remains labile requiring max Levophed. Additional 1000ml NS bolus
given per Dr Houston. Phenylephrine gtt started per Dr Houston. Pt's significant other, son and her mother and step-father arrived to room. Updated on pt's present condition and emotional support provided. Dr Houston to room to talk w/ family. Pt's
rectal temp=92.7F. Lelo Hugger applied. Sandostatin/Protonix gtts started infusing (see MAR). Attempting to secure blood product consent. Dr Houston aware.
[2024-12-15] MEDS: PROTONIX 100 IV (18:00)
[2024-12-15 18:08] LABS: Glucose - Point of Care 173 mg/dl (70-99)
[2024-12-15] MEDS: ZOSYN 100 IV (18:08)
[2024-12-15] MEDS: AQUAMEPHYTON 51 MG IV (18:13)
--- NOTE | 2024-12-15 18:29 | W.PN.UPDATE ---
Update Note
Progress Note Update
Update:
Met with patient's significant other Jl and her mother at bedside. We went over patient's critical clinical condition and high risk of further deterioration, cardiac arrest and . Patient's mother and Jl opted to continue medial management
for now and change code status to DNR. They are awaiting additional family members to arrive and understand that patient might not survive this critical illness.
Order updated.
[2024-12-15 18:30] LABS: B.E. -20.4 mmol/L; O2 Saturation % 99.4 % (94-98); PCO2 27 mmHg (32-35); PO2 117 mmHg (83-108)
--- NOTE | 2024-12-15 18:30 | W.PN.GI.CBS2 ---
Today's Communication / Plan
-
PPI ggt
CT scan when more stable
follow labs closely
pt critical
Assessment / Plan
-
44-year-old female with history of metastatic breast cancer with extensive mets in the liver, noted on PET scan in June 2024, biliary stents noted as well now presenting with abdominal pain and increased abdominal girth, ascitic fluid analysis
without any SBP, SAAG more than 2.1 suggesting portal hypertensive etiology for ascites. No evidence of jaundice. History of biliary duct stenting, 4 stents placed in the bile ducts in November [address] Mayes. in interim now has acute event
with hyperkalemia, rising AST, lactate, drop in hgb requiring intubation.
Based on clinical picture and labs most likely an acute abdominal event such as perforated viscus or mesenteric ischemia. UGIB stress related and not severe in relationshiop to other factors. For now
1. follow lfts, AST likely is reflecting intraabdominal process not liver related
2. when stable CT scan of the abdomen
3. PPI ggt
4. octreotide ggt for reducing portal pressure due to metastatic burden
5. follow hgb
6. follow INR which key acutely today
d/w Dr. Edmonds and Rosemarie (bedside)
Subjective
Subjective
Date of Service: December 15, 2024
Asked to reevalute pt.
Initially seen for hx of metastatic breast ca with wide spread to liver requiring Biliary Stent at [facility]. Admitted with ascites, anemia, constipation. She did have a paracentesis and was scheduled for stent change later this month. Today she
started having a moderate, rapid rise in AST w/o change in baseline other liver numbers. Then in the afternoon started with agonal breathing requiring intubation. At time lactate 22, hgb 6.3 done from 7 range, potassium of 6.9, high wbc. NGT
placed had dark maroon NGT return which then stopped. Pt remains tachycardic, intubated on pressors.
Objective
Data Reviewed
Laboratory Data:
Laboratory Results
09/21/25 Unknown
12/15/24 Unknown
Laboratory Results
PT 26.5 Sec (11.4-14.6) H 12/15/24 Unknown
INR 2.43 12/15/24 Unknown
APTT 65.3 Sec (23.4-35.0) H 12/15/24 Unknown
Total Bilirubin 1.1 mg/dl (0.2-1.3) 12/15/24 Unknown
AST 1170 U/L (14-36) H* 12/15/24 Unknown
ALT 397 U/L (0-35) H 12/15/24 Unknown
Alkaline Phosphatase 529 U/L (38-126) H 12/15/24 Unknown
Lipase 154 U/L (23-300) 12/15/24 04:41
Vital Signs and I&O:
Vital Signs
Temp Pulse Resp BP Pulse Ox
93.5 F L 119 30 95/37 99
12/15/24 14:10 12/15/24 15:12 12/15/24 15:12 12/15/24 15:12 12/15/24 15:13
I&O
12/14/24 12/15/24 12/16/24
06:59 06:59 06:59
Intake Total 480 / 480 480 / 480
Balance 480 / 480 480 / 480
Physical Exam
Physical Exam
HEENT: Other (ET tube sedated)
Cardiology: Normal Sinus Rhythm (tachycardic)
GI: Distended, Tense and Other (decreased bowel sounds)
Neuro: Non Focal (sedated)
[2024-12-15 18:31] LABS: HCO3 7.8 mmol/L (21-28)
[2024-12-15 18:41] LABS: Fibrinogen 246 MG/DL (199-459)
--- NOTE | 2024-12-15 18:50 | PTCARENOTE ---
First unit PRBC started infusing. Decision made by pt's significant other and support by additional family members to change pt's code status to DNR. Per pt's significant other, pt has a son who is currently on his way to the hospital to see pt.
Shift report given to Chon Irby RN w/ preparations underway to begin CRRT as ordered.
--- NOTE | 2024-12-15 19:03 | PHA.VAN.IN ---
Assessment
- Assessment
Renal Function: CRRT
Maximum Temperature: 97.7
Minimum Temperature: 92.7
Concomitant Antimicrobials: piperacillin-tazobactam
Plan
- Plan
Initial / Loading Dose: vanc 1500 mg (21 mg/kg) 12/15 17:39
Maintenance Regimen: dose by level with regards to CRRT
Monitoring: random 12/16 am
MRSA Screen: Ordered per protocol (PCR)
Pharmacokinetics Vancomycin I
- -
Patient Age: 44
Patient Sex: Female
Vancomycin Day #: 1
Indication: Gi / Intra-Abdominal
Requesting Provider: Dr Houston
Pertinent Antimicrobial Allergies:
no known allergies
Height / Weight:
Height 5 ft 8 in
Actual Weight 69.1 kg
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
- Vital Signs / Lab Results
Temp Pulse Resp BP Pulse Ox
93.9 F L 100 30 87/54 99
12/15/24 19:00 12/15/24 19:00 12/15/24 19:00 12/15/24 19:00 12/15/24 15:13
Lab Results - Hematology
12/13/24 12/14/24 12/15/24
03:49 05:33 04:41
WBC 17.8 H 19.2 H 20.3 H
12/15/24 12/15/24
15:07 Unknown
WBC Cancelled 23.1 H
Lab Results - Chemistry
12/13/24 12/14/24 12/15/24
03:49 05:33 04:41
BUN 16 24 H 36 H
Creatinine 0.7 1.0 1.4 H
Estimated Creat Clear 89 62 44
Albumin 2.8 L
12/15/24 12/15/24 12/15/24
08:24 14:18 Unknown
BUN 38 H 37 H 36 H
Creatinine 1.6 H 2.3 H 2.4 H
Estimated Creat Clear 39 31 30
Albumin 2.7 L 2.5 L
12/15/24 12/15/24 12/15/24
15:30 15:36 Unknown
Lactic Acid Cancelled 23.9 H* 22.9 H*
[2024-12-15 19:16] LABS: Glucose - Point of Care 206 mg/dl (70-99)
--- NOTE | 2024-12-15 20:00 | PTCARENOTE ---
bedside report, plan to start CRRT, family at bedside
[2024-12-15] MEDS: FLEXBUMIN 100 IV (20:17)
[2024-12-15] MEDS: RFP-402 HD Soln (K+ 0 mEq/L) 20000 ML CRRT-IRR (20:30)
[2024-12-15] MEDS: COLACE PO (21:03)
[2024-12-15] MEDS: SOLU-CORTEF 50 MG IV (21:07)
[2024-12-15 21:15] LABS: Glucose - Point of Care 182 mg/dl (70-99)
[2024-12-15] MEDS: SUBLIMAZE 50 MCG IV ×2 (22:10→23:10)
[2024-12-15 22:13] LABS: B.E. -19.8 mmol/L; O2 Saturation % 95.1 % (94-98); PCO2 32 mmHg (32-35); PO2 71 mmHg (83-108)
[2024-12-15 22:15] LABS: HCO3 9.1 mmol/L (21-28)
[2024-12-15 22:25] LABS: Hematocrit 26.0 % (37.0-47.0); Hemoglobin 8.1 g/dL (12.0-16.0); Mean Corp Hgb Conc. 31.2 g/dL (33.0-37.0); Mean Corpuscular Volume 88.7 fL (81.0-99.0); Platelet Count 185 10^3/uL (130-400); Red Cell Dist. Width 16.6 % (11.5-14.5)
[2024-12-15 22:35] LABS: Blood Urea Nitrogen 28 mg/dl (7-17); Calcium 8.7 mg/dl (8.4-10.2); Carbon Dioxide 8 mmol/L (22-30); Chloride 102 mmol/L (98-107); Estimated Creatinine Clearance 43 ml/min; Glucose 144 mg/dl (70-99); Magnesium 2.6 mg/dl (1.6-2.3); Potassium 5.3 mmol/L (3.5-5.1); Sodium 133 mmol/L (135-145); eGFR 37.69
[2024-12-15] MEDS: PITRESSIN 100 IV (22:39)
[2024-12-15 23:24] LABS: Glucose - Point of Care 150 mg/dl (70-99)
[2024-12-15] MEDS: DIPRIVAN 100 IV (23:26)
--- NOTE | 2024-12-16 | PTCARENOTE ---
multiple blood products given see TAR, CRRT started, maxed on 4 pressors,
On assessment pt intubated and sedated, restless at time, PRN meds given and started on PROP gtt, family remains at bedside, CHRISTIANO, on kate hugger per orders, SR/ST on the monitor, 7.5 ETT 21 at the lip, R nare NGT, NPO, NGT to LIS, ABD round
distended and firm EARLY EDUCATION TEACHER made aware, Xray completed, labs drawn, flood in place, R IJ HD with pigtail, R subQ port, and R fem triple lumen
[2024-12-16] MEDS: NEO-SYNEPHRINE 1% 260 MG IV ×4 (00:15→15:55)
[2024-12-16] MEDS: LEVOPHED 258 MG IV ×4 (00:15→13:28)
[2024-12-16 00:25] VITALS: BP 95/60
[2024-12-16 00:26] VITALS: BP 95/61
[2024-12-16] MEDS: PROTONIX 100 IV ×2 (00:37→11:19)
[2024-12-16] MEDS: SANDOSTATIN 250 MCG IV ×2 (00:37→11:08)
[2024-12-16] MEDS: ZOSYN 50 IV ×3 (00:42→12:22)
[2024-12-16 01:19] LABS: Glucose - Point of Care 102 mg/dl (70-99)
[2024-12-16 01:41] VITALS: BP 83/55
[2024-12-16] MEDS: ADRENALIN 250 IV ×2 (01:54→05:16)
[2024-12-16 02:04] VITALS: BP 82/55
[2024-12-16 02:09] LABS: B.E. -15.3 mmol/L; O2 Saturation % 94.0 % (94-98); PCO2 25 mmHg (32-35); PO2 61 mmHg (83-108)
[2024-12-16 02:11] LABS: HCO3 10.7 mmol/L (21-28); Hematocrit 22.8 % (37.0-47.0); Hemoglobin 7.2 g/dL (12.0-16.0)
[2024-12-16] MEDS: SOLU-CORTEF 50 MG IV ×3 (02:22→13:20)
[2024-12-16 02:23] VITALS: BP 81/53
[2024-12-16 02:38] LABS: Albumin 3.8 g/dl (3.5-5.0); Alkaline Phosphatase 530 U/L (38-126); Blood Urea Nitrogen 24 mg/dl (7-17); Calcium 9.0 mg/dl (8.4-10.2); Carbon Dioxide 7 mmol/L (22-30); Chloride 99 mmol/L (98-107); Estimated Creatinine Clearance 48 ml/min; Glucose 72 mg/dl (70-99); Magnesium 2.4 mg/dl (1.6-2.3); Potassium 4.7 mmol/L (3.5-5.1); Sodium 135 mmol/L (135-145); Total Protein 6.4 g/dl (6.3-8.2); eGFR 43.80
[2024-12-16] MEDS: DEXTROSE 50% SYRINGE 12.5 GRAMS IV ×2 (03:09→07:44)
[2024-12-16 03:17] LABS: ALT (SGPT) 907 U/L (0-35); AST (SGOT) 4858 U/L (14-36)
--- NOTE | 2024-12-16 03:26 | PTCARENOTE ---
pt ST in the 120s, [employer] aware, tolerating CRRT, MAPs between 58-67, significant other remains at bedside, electronics installer called and was at previously bedside with family members
[2024-12-16 03:33] LABS: Glucose - Point of Care 140 mg/dl (70-99)
--- NOTE | 2024-12-16 03:36 | PTCARENOTE ---
BS 54, treated per orders see JEFFREY ALARM SIGNAL OPERATOR made aware
[2024-12-16] MEDS: DEXTROSE 50% SYRINGE 25 GRAMS IV (04:30)
[2024-12-16 04:34] LABS: Glucose - Point of Care 66 mg/dl (70-99)
[2024-12-16 04:45] VITALS: BP 92/58
[2024-12-16 04:58] LABS: Glucose - Point of Care 189 mg/dl (70-99)
[2024-12-16] MEDS: RFP-402 HD Soln (K+ 0 mEq/L) 20000 ML CRRT-IRR (05:04)
[2024-12-16] MEDS: PITRESSIN 100 IV ×2 (05:16→14:04)
[2024-12-16] MEDS: SODIUM BICARBONATE 1150 MEQ IV ×2 (05:16→09:59)
[2024-12-16 05:37] LABS: B.E. -15.2 mmol/L; O2 Saturation % 96.7 % (94-98); PCO2 23 mmHg (32-35); PO2 69 mmHg (83-108)
[2024-12-16 05:39] LABS: HCO3 10.3 mmol/L (21-28)
[2024-12-16 05:44] LABS: Hematocrit 26.0 % (37.0-47.0); Hemoglobin 8.7 g/dL (12.0-16.0); Mean Corp Hgb Conc. 33.5 g/dL (33.0-37.0); Mean Corpuscular Volume 86.1 fL (81.0-99.0); Nucleated Red Blood Cells % 4.8 %; Platelet Count 150 10^3/uL (130-400); Red Cell Dist. Width 16.4 % (11.5-14.5)
[2024-12-16 05:50] LABS: INR 2.46; PT 26.7 Sec (11.4-14.6)
[2024-12-16 05:51] LABS: APTT 60.1 Sec (23.4-35.0)
[2024-12-16 05:56] LABS: Fibrinogen 130 MG/DL (199-459)
[2024-12-16 05:58] LABS: Glucose - Point of Care 117 mg/dl (70-99)
[2024-12-16 06:07] LABS: D-Dimer > 20.00 ug/mlFEU (0.00-0.50)
[2024-12-16] MEDS: CALCIUM GLUCONATE 130 MG IV ×2 (06:20→14:51)
[2024-12-16 06:33] LABS: Glucose - Point of Care 100 mg/dl (70-99)
[2024-12-16 07:01] LABS: Blood Urea Nitrogen 19 mg/dl (7-17); Calcium 8.3 mg/dl (8.4-10.2); Carbon Dioxide 8 mmol/L (22-30); Chloride 98 mmol/L (98-107); Estimated Creatinine Clearance 52 ml/min; Glucose 94 mg/dl (70-99); Potassium 4.0 mmol/L (3.5-5.1); Sodium 133 mmol/L (135-145); eGFR 47.58
--- NOTE | 2024-12-16 07:30 | PTCARENOTE ---
recd handoff in room, gtts verified, CRRT therapy as ordered. unresponsive, does open eyes very minimally to care but not to command. comfortable on vent settings although occas agonal/asynch movements despite rate 30. flood for zero drainage, NG
marked for thick dark/green/brown drainage. Placement verified, reviewed oral meds with Dr. Yanez, holding lactulose but rest of them given. visitor bedside, plans reviewed. lines as noted, drip compatibilities confirmed and infusing, see
interventions for rate/titrations.
[2024-12-16 07:46] LABS: Glucose - Point of Care 68 mg/dl (70-99)
[2024-12-16] MEDS: NICODERM TRANSDERMAL 14 MG TRANSDERM (07:47)
--- NOTE | 2024-12-16 07:52 | W.PN.NEPH.PH ---
Today's Communication / Plan
-
Maintain CRRT
For pressor support to keep MAP at 65 or
Assessment/Plan
-
Assessment
Hypervolemic hyponatremia
Anemia
Metastatic breast cancer with mets to liver, bile duct, lungs
Recurrent ascites
Biliary stents
Plan
Significant decline in clinical status rapid response patient intubated severe metabolic acidosis NG tube placed bloody drainage.
Requiring 4 pressor support
Severe metabolic acidosis persists
4 units of FFP and 4 units of blood overnight
At this time until further decisions are made we will continue with aggressive therapy despite her comorbid conditions leading up to this.
maintain CRRT support, u/f set to even
Patient is critically ill requiring pressor support and CRRT
31 minutes critical care time spent with patient
Orders placed
Patient DNR
Discussed with intensive care unit nursing staff
-
-
Date of Service: December 16, 2024
CC / HPI / ROS
-
Chief Complaint:
hyponatremia
History of Present Illness:
Hyponatremia initial consultation now with worsening clinical status in the ICU intubated acute kidney injury on pressor support
Remains intubated with FiO2 40%
Remains anuric in setting of acute renal failure
Hemodynamically unstable on 4 pressor support
Review of Systems:
And urine via Gutierrez
Intubated
NG tube
Labs
-
Labs:
WBC 23.0 10^3/uL (4.8-10.8) H 12/16/24 05:28
RBC 3.02 10^6/uL (4.20-5.40) L 12/16/24 05:28
Plt Count 150 10^3/uL (130-400) 12/16/24 05:28
eGFR Cancelled 12/16/24 21:51
Phosphorus 5.8 mg/dl (2.5-4.5) H 12/16/24 01:59
Gep-H-Qsvcwscrcpq Pept 2350 pg/ml 12/16/24 05:28
Albumin 3.8 g/dl (3.5-5.0) 12/16/24 01:59
Physical Exam
-
Vital Signs:
Vital Signs
Temp Pulse Resp BP Pulse Ox
96.6 F L 115 30 92/58 96
12/16/24 07:19 12/16/24 06:30 12/16/24 06:30 12/16/24 04:45 12/16/24 07:38
Cardiovascular:: Regular rate and rhythm (Tachycardia)
Respiratory:: Bilateral: Coarse
Lung Excursion:: Normal
Abdomen:: Distended
Bowel Sounds:: Decreased
Extremity Edema:: +2: Bilateral:
Gutierrez Catheter: Yes
Other Findings::
HEENT NG tube/intubation to
--- NOTE | 2024-12-16 08:01 | W.PN.UPDATE ---
Update Note
Progress Note Update
CRRT note
Patient remains on CRRT
Systolic blood pressure of 106 on for pressor support
UF set to even given hemodynamic instability
0K bath
QB 250 cc/min
2 L/h replacement
--- NOTE | 2024-12-16 08:04 | W.PN.ONC2 ---
Today's Communication / Plan
-
transfuse prn
continue continue GOC
Impression
Impression
metastatic breast cancer on Truqup and letrozole (weakly ER+, Her2 neg)
Ascites s/p paracentesis for which 2250 cc of clear yellow ascitic fluid evacuated. cytology was not sent. SAAG more than 2.1 suggesting portal hypertensive etiology for ascites
Portal vein thrombus (tumor thrombus) -no indication for anticoagulation
thrombocytosis
leukocytosis
elevated LFTs, 4 stents placed in the bile ducts in November [address] Mayes
hyponatremia, hypervolemia
UGIB s/p 4U prbc, 4U FFP during hospitalization
Plan
Plan
on PPI, octreotide -GI following
Patient with POD based on rising CA 27/29 34.8 > 67.4-> 95.[address] results although most recent prior was in July at [facility] so not compared.
Could consider sacituzumab if performance status allows for next line therapy, however, comfort care also appropriate
Subjective/Objective
Subjective
critically ill in ICU, VDRF, on pressors and CRRT
Significant other awaiting family arrival for next steps in management to pursue comfort focused care
Vital Signs:
Vital Signs
Temp Pulse Resp BP Pulse Ox
96.6 F L 115 30 92/58 96
12/16/24 07:19 12/16/24 06:30 12/16/24 06:30 12/16/24 04:45 12/16/24 07:38
Lab Results:
Laboratory Data
WBC 23.0 10^3/uL (4.8-10.8) H 12/16/24 05:28
Hgb 8.7 g/dL (12.0-16.0) L D 12/16/24 05:28
Plt Count 150 10^3/uL (130-400) 12/16/24 05:28
PT 26.7 Sec (11.4-14.6) H 12/16/24 05:27
INR 2.46 12/16/24 05:27
APTT 60.1 Sec (23.4-35.0) H 12/16/24 05:27
eGFR Cancelled 12/16/24 21:51
Physical Exam
IJ HD cath, Femoral CVL, A line, VDRF, sedated
HEENT: Other (NGT bloody drainage)
Pulmonary: Other (VDRF)
GI: Distended
Extremities: Pulses Present
Neuro: Other (sedated)
[2024-12-16 08:11] LABS: Glucose - Point of Care 139 mg/dl (70-99)
--- NOTE | 2024-12-16 08:13 | W.PN.GI.CBS2 ---
Addendum entered and electronically signed by Mary Stanton MD 12/16/24 13:06:
I saw and evaluated the patient. I reviewed the resident�s note and agree with findings and plan as documented in the resident�s note.
pt critical. spoke with brother and
abd: more distended then yesterday
wbc 30
impression:
likely perforated viscus vs mesenteric ischemia on top of metastatic breast ca
plan:
supportive care
family does not want aggressive measures. did d/w them
will sign off call with questions
Original Note:
Today's Communication / Plan
-
- Goals of care discussion once family members arrive
- Continue medical management for now: trend LFTs, INR, Hgb, lactate
- Continue pantoprazole, octreotride
- Recommendations are not final until discussed with attending, Dr. Stanton.
Assessment / Plan
-
In summary, 44 yo F PMH of metastatic breast cancer to liver (noted on PET in June 2024), requiring biliary stents [place] [address] Mayes who presents on 12/09/2024 with abdominal pain and increasing abdominal girth now with massively
elevated AST and subsequent development of agonal respirations, lactic acidosis, hyperkalemia, acute anemia requiring emergent intubation, CRRT, and ICU management.
Reviewed primary team's documentation, goals of care discussion to be planned when family members arrive.
At this time, Jl, medical decision maker, expressed a desire not to repeat CT scan
# Acute liver injury
# Transaminitis
# Coagulopathy
- Massively elevated AST now to 4858 from 1170 prior
- ALT now at 907 from 397 (baseline ALT appears 200s)
- INR of 2.46 from 0.98 on 12/07
- No jaundice appreciable on my exam.
- I was not able to assess mental status, but may meet criteria for acute liver failure given acute deterioration
- The ddx for massive transaminitis (AST, ALT in 1000s) generally includes drug toxicity, ischemic liver injury, viral hepatitis.
- However, the elevated AST out of proportion to ALT may suggest a non-liver etiology. Normal CK reassures against rhabdomyolysis.
- CT C/A/P on 12/09 noted thrombus in portal vein attributed to tumor burden.
- A worsening thrombus may suggest ischemic bowel explanation of isolated massive elevation in AST?
- elevated lactate is c/w a mesenteric ischemic etiology
- ALT is now also elevated to 1000s
- Review of primary team documentation had concern for a drug-toxicity induced liver injury (ceftriaxone)
- Acute change in INR points is consistent worsening liver function (occasional PCC glucose in 60s also supports hepatic dysfunction)
Plan
- Trend LFTs
- Trend lactate
- Trend INR
- Continue pantoprazole
- Continue octreotide
# UGIB
# Acute on chronic anemia
- Hgb drop to 6.0 noted in setting of hematemesis
- It is currently believed that the UGIB may be stress related
- s/p transfusion x3 on 12/15
- repeat Hgb 8.7
Plan
- trend Hgb
# Metastatic breast cancer
# Malignant ascites
- extensive metastatic disease to liver, ribs, omentum
- biliary duct stenting (4x placed in Nov [address] Mayes)
- ascites fluid cytology positive for malignant cells
- SAAG > 2.1 --> portal hypertensive etiology which is consistent with metastatic tumor burden
- Oncology following
# Acute hypoxic respiratory failure
- intubated/mechanical ventilation per emergency man
# Acute renal failure
- CRRT per emergency man and nephrology
# Disposition
- Patient's code status updated to DNR
Recommendations to be discussed with attending, Dr. Stanton.
Subjective
Subjective
Date of Service: December 16, 2024
Interim events, on 12/15 evening, admitted to ICU and emergently intubated, found to have lactic acidosis, hyperkalemia, rising AST, anemia, and hematemesis
This morning, patient is intubated and sedated. Jl, significant other, who is the medical decision maker, present at bedside.
Objective
Data Reviewed
Laboratory Data:
Laboratory Results
PT 26.7 Sec (11.4-14.6) H 12/16/24 05:27
INR 2.46 12/16/24 05:27
APTT 60.1 Sec (23.4-35.0) H 12/16/24 05:27
Phosphorus 5.8 mg/dl (2.5-4.5) H 12/16/24 01:59
Magnesium 2.4 mg/dl (1.6-2.3) H 12/16/24 01:59
Total Bilirubin 3.2 mg/dl (0.2-1.3) H D 12/16/24 01:59
AST 4858 U/L (14-36) H* 12/16/24 01:59
ALT 907 U/L (0-35) H* 12/16/24 01:59
Alkaline Phosphatase 530 U/L (38-126) H 12/16/24 01:59
Lipase 154 U/L (23-300) 12/15/24 04:41
Imaging:
CT C/A/P on 12/10/2024:
IMPRESSION:
Innumerable liver metastases. Thrombosis of the portal vein at the confluence of the right and left portal veins, likely reflecting tumor thrombus. The more distal portal vein is patent, and the splenic and superior mesenteric veins are patent.
Ill-defined omental soft tissue attenuation at midline raising concern for omental metastases.
Masslike enlargement of both ovaries raising concern for ovarian metastatic disease. Treatment related changes would be an alternative consideration.
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
Hepatic cirrhosis.
Common bile duct stents in place.
Mild abdominopelvic ascites.
Vital Signs and I&O:
Vital Signs
Temp Pulse Resp BP Pulse Ox
96.6 F L 115 30 92/58 96
12/16/24 07:19 12/16/24 06:30 12/16/24 06:30 12/16/24 04:45 12/16/24 07:38
I&O
12/15/24 12/16/24 12/17/24
06:59 06:59 06:59
Intake Total 480 / 480 8246.8 / 8628.0 821.2 / 821.2
Output Total 4576 / 5027 738 / 738
Balance 480 / 480 3670.8 / 3601.0 83.2 / 83.2
Ventilator settings:
30/450/5/40%
CRRT net even
Physical Exam
Physical Exam
HEENT: Anicteric
Cardiology: Other (no murmurs on my exam; tachycardic)
Pulmonary: Other (mechanical ventilation)
GI: Distended
Extremities: Edema (tracet to 1+ edema)
Neuro: Other (intubated and sedated)
[2024-12-16] MEDS: ZOLOFT 200 MG TUBE (08:15)
[2024-12-16] MEDS: SUBUTEX 12 MG SL (08:15)
[2024-12-16] MEDS: ABILIFY 5 MG TUBE (08:16)
[2024-12-16] MEDS: FEMARA 2.5 MG PO (08:16)
--- NOTE | 2024-12-16 08:20 | W.PN.INTV ---
Today's Communication / Plan
Recommendations
Mechanical ventilation
Vasopressors + stress dose steroids
Replete calcium as needed
CRRT
Extremely poor prognosis � family is leaning towards withdrawal of care with transition to comfort --> awaiting additional family members to arrive first
DNR/DNI
Continue ICU level care for this critically ill patient
Assessment
-
#1. Acute hypoxic respiratory failure, agonal breathing on arrival to ICU
- On initial evaluation, patient cyanotic, agonal breathing, saturations in 70% on nonrebreather, minimally responsive
- Emergently intubated 12/15, mechanically ventilated now. Continue hyperventilation in view of acidosis, 450/30/50%/5
- Serial ABG
- Stat chest x-ray, concern for aspiration with large volume coffee-ground emesis
#2. Severe metabolic acidosis
- Severely elevated lactate at 23 on initial presentation, initial pH 6.95
- 2 A of sodium bicarbonate were given stat as well as IV calcium prior to emergent intubation
- Additional sodium bicarbonate pushes given followed by initiation of sterile water with 3 A of bicarbonate infusion at 150 mL/h
- Concern for bowel ischemia with severely elevated lactate, abdominal distention and coffee-ground emesis
- Patient very unstable for a safe transport off floor to obtain imaging at this point
- pt now on CRRT and is on bicarn gtt at 150cc/hr; continue to trend BMP, lactate and ABGs
#3. Shock - due to vasoplegia in setting of severe acidosis and suspected sepsis with suspected ischemic bowel
- Patient had large-volume coffee-ground emesis on placement of NG tube suggestive of GI bleed, also hypothermic, severely acidotic with as elevated lactate. Additional consideration are septic shock, bowel ischemia, SBP versus others
- Continue bicarb infusion in addition to multiple vasopressors, double concentrated to help reduce volume given her acute kidney injury, and continue CRRT as per nephrology
- Goal MAP>65
- Stress dose steroids with solu-cortef 50mg IV q6hr
- Follow-up blood cultures; continue with broad-spectrum antibiotics with Zosyn + IV vancomycin
#4. Acute renal failure with hyperkalemia
- On initial presentation to ICU in view of severe acidosis patient was given stat IV bicarbonate push along with calcium prior to intubation
- Additional bicarbonate pushes and bicarbonate infusion started along with volume resuscitation
- Avoid hypotension, target MAP above 65
- Emergent hemodialysis access catheter placed ---> now on CRRT
#5. Acute liver injury
- Suspect shock liver
- Continue to monitor liver function tests
#6. Coagulopathy with suspect upper GI bleed
- Coffee-ground emesis noted during intubation as well as on NG tube placement, large-volume
- Fibrinogen reduced likely due to acute liver dysfunction; DIC usually has levels <100; continue to trend, as long as remains >100 then hold off on cryo
- s/p 4 units FFP on 12/15 into 12/16; she is also received a total of 4 units PRBCs since 12/08, with 3 units obtained over the last 24 hours
- Trend coags, fibrinogen, Hb and platelet count
- GI on board --> not appropriate for endoscopy given clinical instability and family is leaning towards comfort care
- Continue PPI gtt and Octreotide
- s/p 10 mg vitamin K IV
- Abdominal significantly distended, paracentesis performed on 12/09/2024, large volume ascites noted
- Will pursue CT chest/abd/pelvis once patient is more stable to go to radiology for scanning
#7. Metastatic breast cancer.
- Patient has ER/ID positive, HER 2 positive invasive ductal carcinoma. Unfortunately extensive metastatic disease, follows up with oncology in [facility]
- Oncology service on case. Very poor prognosis
Other medical diagnoses:
- Hyponatremia
- Ascites, malignant
- Liver cirrhosis with extensive metastasis
- Portal vein thrombosis
- Omental metastasis
- Common bile duct stents
- Rib metastasis
Dr. Houston called the household appliances salesperson listed, Jl Rony, . Updated regarding patient's current critical condition and recommended that family should come see the patient as she might not survive this critical illness.
Given patient's ongoing severe metabolic acidosis with maxed out vasopressors with persistent circulatory shock, and now with worsening neurological status on exam, believe that it is appropriate to transition to comfort care. Additional aggressive
care is futile at this current juncture given suspected ischemic gut versus perforated viscus as the etiology of continued lactic acidosis. Family is agreeable to transitioning to comfort care, they are just awaiting additional family members to
come to bedside before we terminally extubate. I discussed the case with the patient's , Jl, as well as the patient's brother, Jl, and answered all questions. Emotional support provided. Technical Sales Director services has already been to bedside.
Critical care statement: A total of 47 minutes of critical care time was provided for this patient today. This includes management of unstable vital signs, evaluation of the patient at bedside, reviewing the patient�s pertinent medical records
including radiographs, microbiology, laboratory evaluations, and��discussion with primary team, consultants, pharmacy, nutrition, physical therapy, case management, charge nurse, critical care nursing, and respiratory therapy.
Data:
US 11/2024: There is at least moderate ascites in the abdomen, adequate volume for paracentesis.
CXR 11/2024: No acute abnormality noted
CT A/P 11/2024: Innumerable liver metastases. Thrombosis of the portal vein at the confluence of the right and left portal veins, likely reflecting tumor thrombus. The more distal portal vein is patent, and the splenic and superior mesenteric veins
are patent.
Ill-defined omental soft tissue attenuation at midline raising concern for omental metastases.
Masslike enlargement of both ovaries raising concern for ovarian metastatic disease. Treatment related changes would be an alternative consideration.
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
Hepatic cirrhosis.
Common bile duct stents in place.
Mild abdominopelvic ascites.
Other chronic findings, as detailed above.
Subjective Dataa
Subjective Data
Date of Service:
Date of Service: December 16, 2024
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
Subjective:
Pt seen and evaluated this AM. , Jl, at bedside - all questions were answered and emotional support provided. Pressors are maxed including epi, levo, darleen and vaso. CRRT started overnight - pt being kept net even. MAP has been 65-70
overnight, BP via A line 90/59, HR 110, SpO2 97%. Remains intubated on AC/CMV at 450/30/40%/5 with PIP [id number], VTe is 465mL and breathing at 30 b/min. On bicarb gtt at 150cc/hr. Also on propofol at 25 mcg/kg/min, PPI drip + octreotide drip.
Review of Systems
General: Other (Unobtainable due to clinical status + sedation + intubated)
Objective Data
Data Reviewed
Vital Signs / I&O / Oxygen:
Vital Signs
Temp Pulse Resp BP Pulse Ox
97.0 F 114 30 92/58 97
12/16/24 08:00 12/16/24 08:10 12/16/24 08:10 12/16/24 04:45 12/16/24 08:00
Intake and Output
12/15/24 12/16/24 12/17/24
06:59 06:59 06:59
Intake Total 480 / 480 8246.8 / 8628.0 821.2 / 821.2
Output Total 4576 / 5027 738 / 738
Balance 480 / 480 3670.8 / 3601.0 83.2 / 83.2
SaO2 [A/C] 97
SaO2 96
Nasal Cannula flow liters per 1
minute
Physical Exam
General: Respiratory Distress (negative), Chills (negative) and Sweats (negative)
HEENT: Normocephalic, Anicteric and Other (ETT in place)
Cardiovascular: S1-S2 and Peripheral Edema (negative)
Respiratory: Wheeze (negative), Crackles (negative), Rhonchi (negative), Non-Labored Respirations and ET Tube (Mechanical breath sounds heard bilaterally)
GI: Soft, Non Distended, Non Tender and Other (hypoactive bowel sounds)
Neurology: Tremors (negative), Unresponsive and Other (Pupils 4 mm bilaterally with no pupillary light reflex; corneal reflex seen on left eye, absent on the right; absent gag/cough reflex)
Skin: Warm, Dry and Cyanosis (negative)
Labs/Micro/Reports
Laboratory Results
12/15/24 12/15/24 12/15/24
15:29 15:36 18:23
PT
INR
APTT
pH Cancelled 7.00 L* 7.07 L*
pCO2 Cancelled 26 L 27 L
pO2 Cancelled 161 H 117 H
HCO3 Cancelled 6.4 L* 7.8 L*
O2 Delivery Level Cancelled
12/15/24 12/15/24 12/16/24
22:03 Unknown 01:59
PT 26.5 H
INR 2.43
APTT 65.3 H
pH 7.06 L* 7.24 L
pCO2 32 25 L
pO2 71 L 61 L
HCO3 9.1 L* 10.7 L*
O2 Delivery Level
12/16/24 12/16/24
05:27 05:28
PT 26.7 H
INR 2.46
APTT 60.1 H
pH 7.26 L
pCO2 23 L
pO2 69 L
HCO3 10.3 L*
O2 Delivery Level
--- NOTE | 2024-12-16 08:25 | CHAP ---
Fr. Grabiel Butterfield, the on-call dixonac operator for today, has been texted to come to give Chantal the Sacrament of the Sick. I will note further when I hear back from him as to his expected time of arrival.
[2024-12-16 08:28] LABS: Magnesium 2.3 mg/dl (1.6-2.3)
--- NOTE | 2024-12-16 08:32 | PHA.VAN.FU ---
Vancomycin Assessment / Plan
- Assessment
Hemodialysis Schedule: Other (CRRT- therapy fluid rate 2L/hr (started 12/15 ~2029))
WBC's are: Stable
In the past 24 hrs, patient has been: Hypothermic
Concomitant Antimicrobials: Piperacillin/tazobactam
- Assessment - Therapeutic Drug Monitoring
Random Level: 12.9- drawn approx 12 hours after vancomycin 1500mg loading dose
- Dosing Plan
Continue: dose by level
Dosing by Level: Re-dose today (Vancomycin 1000mg (15mg/kg))
- Monitoring Plan
Random Level: 12/17 0600
- Follow Up
Pharmacy will continue to follow.
Vancomycin Follow UP
- -
Patient Age: 44
Patient Sex: Female
Vancomycin Day #: 2
Indication: Gi / Intra-Abdominal
Requesting Provider: Dr Houston
Pertinent Antimicrobial Allergies:
no known allergies
Height / Weight:
Height 5 ft 8 in
Actual Weight 69.1 kg
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
- Vital Signs / Lab Results
Temp Pulse Resp BP Pulse Ox
97.0 F 114 30 92/58 97
12/16/24 08:00 12/16/24 08:10 12/16/24 08:10 12/16/24 04:45 12/16/24 08:00
Lab Results - Hematology
12/14/24 12/15/24 12/15/24
05:33 04:41 15:07
WBC 19.2 H 20.3 H Cancelled
12/15/24 12/15/24 12/15/24
22:03 22:03 Unknown
WBC Cancelled 15.1 H 23.1 H
12/16/24
05:28
WBC 23.0 H
Lab Results - Chemistry
12/14/24 12/15/24 12/15/24
05:33 04:41 08:24
BUN 24 H 36 H 38 H
Creatinine 1.0 1.4 H 1.6 H
Estimated Creat Clear 62 44 39
Albumin 2.8 L 2.7 L
12/15/24 12/15/24 12/15/24
14:18 22:03 22:03
BUN 37 H Cancelled 28 H
Creatinine 2.3 H Cancelled
Estimated Creat Clear 31
Albumin
12/15/24 12/15/24 12/15/24
22:03 22:03 Unknown
BUN 36 H
Creatinine 1.7 H 2.4 H
Estimated Creat Clear Cancelled 43 30
Albumin 2.5 L
12/16/24 12/16/24 12/16/24
01:51 01:59 01:59
BUN Cancelled 24 H Cancelled
Creatinine Cancelled
Estimated Creat Clear Cancelled
Albumin
12/16/24 12/16/24 12/16/24
01:59 01:59 01:59
BUN Cancelled
Creatinine 1.5 H Cancelled Cancelled
Estimated Creat Clear 48
Albumin
12/16/24 12/16/24 12/16/24
01:59 01:59 06:14
BUN 19 H
Creatinine 1.4 H
Estimated Creat Clear Cancelled Cancelled 52
Albumin 3.8
12/16/24 12/16/24 12/16/24
09:51 13:51 17:51
BUN Cancelled Cancelled Cancelled
Creatinine Cancelled Cancelled Cancelled
Estimated Creat Clear Cancelled Cancelled Cancelled
Albumin
12/16/24
21:51
BUN Cancelled
Creatinine Cancelled
Estimated Creat Clear Cancelled
Albumin
12/15/24 12/15/24 12/15/24
15:30 15:36 22:03
Lactic Acid Cancelled 23.9 H* 19.0 H*
12/15/24 12/16/24
Unknown 05:28
Lactic Acid 22.9 H* 18.2 H*
Therapeutic Drug Monitoring
Random Vancomycin 12.9 ug/ml 12/16/24 05:28
[2024-12-16] MEDS: DUPHALAC/CHRONULAC PO ×2 (08:37→15:37)
--- NOTE | 2024-12-16 08:48 | W.PN.HOSP.TC ---
Today's Communication/Plan
-
cont current management until family arrives
prognosis grim
Assessment / Plan
Assessment / Plan
Pt is a 44 year old female
septic shock with multiorgan failure--concern for perforated viscous with acute decompensation requiring intubation and transfer to ICU, too unstable to take for any studies, nor would it change manager as NOT surgical candidate--max'd on 4
pressors (Levophed, darleen, phenylephrine, vasopressin)--WBC remains persistently elevated--coag studies reviewed--? developing early DIC?--renal and liver failure--lactic acid 18--on CRRT--apprec all consultants--prognosis grim--will not survive
hospitalization--significant other at bedside understands, waiting for family to arrive--cont vanco/zosyn--pain control
metastatic breast cancer (ER/LA positive HER2 positive invasive ductal carcinoma) with Recurrent malignant ascites/Transaminitis and hyperbilirubinemia/cytology positive for malignant cells--Has biliary disease s/p stenting with 2 stent exchange
planned for December 24. Belkis moon has gone up--cont octreotide--apprec GI input--2.5L paracentesis in ED, repeat para 12/09 for 2.2L--no SBP or positive fluid cultures--finished empiric ceftriaxone--Abdominal Doppler resulted with Occlusion of the
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 Letrozole 2.5 daily--both on hold
hypoglycemia--treated with S77--fsnwbh bicarb to D5W with bicarb at same rate to help with sugar management
Hyperkalemia--per protocol--lokelma as needed--spironolactone held
Anemia of chronic disease/coagulopathy--s/p 4 units pRBC and 4 units FFP
Hyponatremia/hypervolemic, urine sodium less than 5--apprec renal--on CRRT
Adjustment disorder with depressed mood/pain --appropriate given circumstances- conitnue abilify and adderal as able- continue suboxone , prn oxy for breakthrough
Malnutrition--poor oral intake--megace, ensure
DVT PPX -Lovenox
Code status -- now DNR--SO waiting for family--pt actively dying and suspect they will withdraw care and keep pt comfortable
Total Critical Care Time 38 minutes. I was immediately available to the patient and staff. I personally examined, reviewed labs, diagnostic images/reports, interpretations, treatment plans, discussed patient care with other providers and family
or caregivers (if patient is unable to make decisions), entered orders as appropriate and documented the medical record.
Anticipated Discharge: Within 24 hours
Subjective/Interval History
-
Date of Service: December 16, 2024
pt intubated, sedated, on max'd on 4 pressors
Objective Data
-
Labs:
Laboratory Results
12/15/24 12/15/24 12/15/24
22:03 22:03 22:03
WBC Cancelled 15.1 H
Hgb Cancelled Cancelled
Hct
Plt Count
PT
INR
APTT
HCO3
Sodium
Potassium
Chloride
Carbon Dioxide
BUN
Creatinine
Glucose
Calcium
Total Bilirubin
AST
ALT
Alkaline Phosphatase
12/15/24 12/15/24 12/15/24
22:03 22:03 22:03
WBC
Hgb 8.1 L D
Hct Cancelled Cancelled 26.0 L
Plt Count Cancelled
PT
INR
APTT
HCO3
Sodium
Potassium
Chloride
Carbon Dioxide
BUN
Creatinine
Glucose
Calcium
Total Bilirubin
AST
ALT
Alkaline Phosphatase
12/15/24 12/15/24 12/15/24
22:03 22:03 22:03
WBC
Hgb
Hct
Plt Count 185 D
PT
INR
APTT
HCO3 9.1 L*
Sodium Cancelled 133 L
Potassium Cancelled 5.3 H
Chloride Cancelled
Carbon Dioxide
BUN
Creatinine
Glucose
Calcium
Total Bilirubin
AST
ALT
Alkaline Phosphatase
12/15/24 12/15/24 12/15/24
22:03 22:03 22:03
WBC
Hgb
Hct
Plt Count
PT
INR
APTT
HCO3
Sodium
Potassium
Chloride 102
Carbon Dioxide Cancelled 8 L*
BUN Cancelled 28 H
Creatinine Cancelled
Glucose
Calcium
Total Bilirubin
AST
ALT
Alkaline Phosphatase
12/15/24 12/15/24 12/15/24
22:03 22:03 22:03
WBC
Hgb
Hct
Plt Count
PT
INR
APTT
HCO3
Sodium
Potassium
Chloride
Carbon Dioxide
BUN
Creatinine 1.7 H
Glucose Cancelled 144 H
Calcium Cancelled 8.7 D
Total Bilirubin
AST
ALT
Alkaline Phosphatase
12/16/24 12/16/24 12/16/24
01:51 01:59 01:59
WBC
Hgb 7.2 L
Hct 22.8 L
Plt Count
PT
INR
APTT
HCO3 10.7 L*
Sodium Cancelled 135 Cancelled
Potassium Cancelled
Chloride Cancelled
Carbon Dioxide Cancelled
BUN Cancelled
Creatinine Cancelled
Glucose Cancelled
Calcium Cancelled
Total Bilirubin
AST
ALT
Alkaline Phosphatase
12/16/24 12/16/24 12/16/24
01:59 01:59 01:59
WBC
Hgb
Hct
Plt Count
PT
INR
APTT
HCO3
Sodium Cancelled
Potassium 4.7 Cancelled Cancelled
Chloride 99
Carbon Dioxide
BUN
Creatinine
Glucose
Calcium
Total Bilirubin
AST
ALT
Alkaline Phosphatase
12/16/24 12/16/24 12/16/24
01:59 01:59 01:59
WBC
Hgb
Hct
Plt Count
PT
INR
APTT
HCO3
Sodium
Potassium
Chloride Cancelled Cancelled
Carbon Dioxide 7 L* Cancelled
BUN
Creatinine
Glucose
Calcium
Total Bilirubin
AST
ALT
Alkaline Phosphatase
12/16/24 12/16/24 12/16/24
01:59 01:59 01:59
WBC
Hgb
Hct
Plt Count
PT
INR
APTT
HCO3
Sodium
Potassium
Chloride
Carbon Dioxide Cancelled
BUN 24 H Cancelled Cancelled
Creatinine 1.5 H
Glucose
Calcium
Total Bilirubin
AST
ALT
Alkaline Phosphatase
12/16/24 12/16/24 12/16/24
01:59 01:59 01:59
WBC
Hgb
Hct
Plt Count
PT
INR
APTT
HCO3
Sodium
Potassium
Chloride
Carbon Dioxide
BUN
Creatinine Cancelled Cancelled
Glucose 72 Cancelled
Calcium
Total Bilirubin
AST
ALT
Alkaline Phosphatase
12/16/24 12/16/24 12/16/24
01:59 01:59 01:59
WBC
Hgb
Hct
Plt Count
PT
INR
APTT
HCO3
Sodium
Potassium
Chloride
Carbon Dioxide
BUN
Creatinine
Glucose Cancelled
Calcium 9.0 Cancelled Cancelled
Total Bilirubin 3.2 H D
AST 4858 H*
ALT 907 H*
Alkaline Phosphatase 530 H
12/16/24 12/16/24 12/16/24
05:27 05:28 06:14
WBC 23.0 H
Hgb 8.7 L D
Hct 26.0 L
Plt Count 150
PT 26.7 H
INR 2.46
APTT 60.1 H
HCO3 10.3 L*
Sodium 133 L
Potassium 4.0
Chloride 98
Carbon Dioxide 8 L*
BUN 19 H
Creatinine 1.4 H
Glucose 94
Calcium 8.3 L
Total Bilirubin
AST
ALT
Alkaline Phosphatase
12/16/24 12/16/24 12/16/24
09:51 10:00 12:00
WBC
Hgb Pending
Hct Pending
Plt Count
PT
INR
APTT
HCO3 Pending
Sodium Cancelled Pending
Potassium Cancelled Pending
Chloride Cancelled Pending
Carbon Dioxide Cancelled Pending
BUN Cancelled Pending
Creatinine Cancelled Pending
Glucose Cancelled Pending
Calcium Cancelled Pending
Total Bilirubin
AST
ALT
Alkaline Phosphatase
12/16/24 12/16/24 12/16/24
13:51 14:00 17:51
WBC
Hgb
Hct
Plt Count
PT
INR
APTT
HCO3
Sodium Cancelled Pending Cancelled
Potassium Cancelled Pending Cancelled
Chloride Cancelled Pending Cancelled
Carbon Dioxide Cancelled Pending Cancelled
BUN Cancelled Pending Cancelled
Creatinine Cancelled Pending Cancelled
Glucose Cancelled Pending Cancelled
Calcium Cancelled Pending Cancelled
Total Bilirubin
AST
ALT
Alkaline Phosphatase
12/16/24 12/16/24 12/16/24
18:00 21:51 22:00
WBC
Hgb Pending
Hct Pending
Plt Count
PT
INR
APTT
HCO3
Sodium Pending Cancelled Pending
Potassium Pending Cancelled Pending
Chloride Pending Cancelled Pending
Carbon Dioxide Pending Cancelled Pending
BUN Pending Cancelled Pending
Creatinine Pending Cancelled Pending
Glucose Pending Cancelled Pending
Calcium Pending Cancelled Pending
Total Bilirubin
AST
ALT
Alkaline Phosphatase
Vital Signs:
max temp for 24 hours
12/16/24
03:00
Temp 97.4 F
Vital Signs
Temp Pulse Resp BP Pulse Ox
97.0 F 114 30 92/58 97
12/16/24 08:00 12/16/24 08:10 12/16/24 08:10 12/16/24 04:45 12/16/24 08:00
I&O
12/15/24 12/16/24 12/17/24
06:59 06:59 06:59
Intake Total 480 / 480 8246.8 / 8628.0 821.2 / 821.2
Output Total 4576 / 5027 738 / 738
Balance 480 / 480 3670.8 / 3601.0 83.2 / 83.2
Review of Systems
-
Unable to obtain full review of systems at this time due to: Acuity and Patient Intubation
Physical Exam
-
General: Intubated and Appears Chronically Ill
HEENT: Normocephalic and Atraumatic
Respiratory: Clear to Auscultation; Negative Wheezes, Rales, Rhonchi or Crackles
Cardiac: Regular Rhythm, S1/S2 and Tachycardic
GI: Nontender; Negative Soft (firm), Nondistended (distended and tympanitic) or Normal Bowel Sounds (no bowel sounds heard by me)
Musculoskeletal: No Clubbing, No Cyanosis and No Edema
Skin: Warm
Neuro: Sedated; Negative Awake or Alert
Psych: Calm
[2024-12-16] MEDS: VANCOCIN 200 IV (08:57)
[2024-12-16] MEDS: SUBLIMAZE 50 MCG IV ×4 (08:58→18:13)
[2024-12-16] MEDS: DIPRIVAN 100 IV (09:00)
[2024-12-16 09:29] LABS: Glucose - Point of Care 93 mg/dl (70-99)
--- NOTE | 2024-12-16 09:31 | CHAP ---
Fr. Grabiel Butterfield expects to arrive around 9:30 this morning to give Chantal the Sacrament of the Sick.
[2024-12-16 10:41] LABS: Glucose - Point of Care 109 mg/dl (70-99)
[2024-12-16] MEDS: SUBLIMAZE 100 IV (10:43)
[2024-12-16 10:44] LABS: B.E. -13.6 mmol/L; O2 Saturation % 97.9 % (94-98); PCO2 22 mmHg (32-35); PO2 78 mmHg (83-108)
[2024-12-16 10:46] LABS: HCO3 11.1 mmol/L (21-28)
[2024-12-16 10:50] LABS: INR 3.17; PT 32.3 Sec (11.4-14.6)
[2024-12-16 10:51] LABS: APTT 63.6 Sec (23.4-35.0)
--- NOTE | 2024-12-16 10:51 | PTCARENOTE ---
visitors bedside. fentanyl initiated per order and discussion of plan on interdisciplinary rounds. Otherwise no change, therapies, gtts, care continuing. labs pending.
[2024-12-16 10:59] LABS: Glucose - Point of Care 57 mg/dl (70-99)
[2024-12-16 11:04] LABS: Hematocrit 27.0 % (37.0-47.0); Hemoglobin 9.0 g/dL (12.0-16.0); Mean Corp Hgb Conc. 33.3 g/dL (33.0-37.0); Mean Corpuscular Volume 85.2 fL (81.0-99.0); Platelet Count 134 10^3/uL (130-400); Red Cell Dist. Width 16.6 % (11.5-14.5)
[2024-12-16 11:15] LABS: Albumin 3.2 g/dl (3.5-5.0); Blood Urea Nitrogen 17 mg/dl (7-17); Calcium 8.9 mg/dl (8.4-10.2); Carbon Dioxide 10 mmol/L (22-30); Chloride 97 mmol/L (98-107); Estimated Creatinine Clearance 52 ml/min; Glucose 107 mg/dl (70-99); Magnesium 2.2 mg/dl (1.6-2.3); Potassium 3.9 mmol/L (3.5-5.1); Sodium 131 mmol/L (135-145); Total Protein 5.8 g/dl (6.3-8.2); eGFR 47.58
[2024-12-16 11:23] LABS: Alkaline Phosphatase 1374 U/L (38-126)
[2024-12-16 11:56] LABS: ALT (SGPT) 3407 U/L (0-35)
[2024-12-16 12:01] LABS: AST (SGOT) > 7500 U/L (14-36)
[2024-12-16 12:03] LABS: Glucose - Point of Care 101 mg/dl (70-99)
[2024-12-16 12:31] LABS: Nucleated Red Blood Cells % 4.5 %
--- NOTE | 2024-12-16 12:33 | PTCARENOTE ---
family remains. continuing 1:1 with CRRT, meds. Lelo ruiz restarted for hypothermia. labs obtained and resulted as ordered, following MD order set for CRRT. Oral care done, ETT to L iman, tolerated, eyes tried to open briefly but no other
reaction.
[2024-12-16] MEDS: RFP-400 HD Soln (K+ 2 mEq/L) 10000 ML CRRT-IRR (13:27)
[2024-12-16 14:30] LABS: Hematocrit 27.7 % (37.0-47.0); Hemoglobin 9.2 g/dL (12.0-16.0)
[2024-12-16 14:32] LABS: Glucose - Point of Care 103 mg/dl (70-99)
[2024-12-16] MEDS: ADRENALIN 258 MG IV (14:51)
[2024-12-16 15:03] LABS: Blood Urea Nitrogen 15 mg/dl (7-17); Calcium 8.2 mg/dl (8.4-10.2); Carbon Dioxide 10 mmol/L (22-30); Chloride 98 mmol/L (98-107); Estimated Creatinine Clearance 56 ml/min; Glucose 96 mg/dl (70-99); Potassium 3.8 mmol/L (3.5-5.1); Sodium 132 mmol/L (135-145); eGFR 52.00
--- NOTE | 2024-12-16 15:45 | CM ---
Septic shock, multiorgan failure, intubated, prognosis grim per attending. Discharge POC: TBD.
--- NOTE | 2024-12-16 16:32 | PTCARENOTE ---
blood returned from CRRT circuit, unable to fully return, line capped. Dr. Ruggiero in room, updating family.
--- NOTE | 2024-12-16 16:34 | W.PN.UPDATE ---
Update Note
Progress Note Update
Notified by RN that the family is ready to transition to comfort care measures now. I confirmed with the family that they are in fact ready. Patient's mother, Sandee, as well as patient's brother, Jl and patient's , Jl all present at
bedside and all questions were answered.
[2024-12-16] MEDS: SUBLIMAZE 100 MCG IV (16:45)
--- NOTE | 2024-12-16 16:45 | PTCARENOTE ---
extubated to comfort, NG removed at the same time, see intervention for exact time ETT was removed. Family bedside, aware of process and medication availability.
[2024-12-16] MEDS: ATIVAN 1 MG IV (16:46)
[2024-12-16] MEDS: NSS (PRESERVATIVE FREE) 0.5 ML IV (16:46)
--- NOTE | 2024-12-16 18:42 | PTCARENOTE ---
gradual slowing over last 10 minutes, now asystolic and apneic. Family bedside, aware.
--- NOTE | 2024-12-16 19:17 | W.PN.DEATH ---
Pronouncement of
-
Called to see patient to pronounce.
No spontaneous heart tones or respirations noted.
Patient not responsive to verbal stimuli.
Patient is pronounced .
Time of : 18:37
Date of : 12/16/24
Cause of : Sepsis due to ischemic bowel
Family Notified: Yes
--- NOTE | 2024-12-17 07:23 | W.DCSUMMARY ---
Discharge Summary
Discharge Data
Date of Admission: 12/07/24
Date of Discharge: 12/16/24
-
Pending Results: No
Hospital Course
Primary care physician : Gurinder Nair
Principal Discharge diagnosis : Septic shock with multiorgan failure and lactic acidosis
Chronic Discharge diagnosis : Metastatic breast cancer with recurrent malignant ascites, anemia of chronic disease, adjustment disorder with depression, malnutrition
Hospital Course : Patient was a 44-year-old female with a history of static breast cancer that was diagnosed as metastatic disease in 2019. She was currently on suppressive chemotherapy and presented with increasing abdominal distention and
discomfort. Patient stated that she was on spironolactone which she uses intermittently. She noticed increasing abdominal girth and abdominal discomfort and was unable to lie down without feeling uncomfortable. Patient was admitted.
Problem #1: Septic shock with multiorgan failure and lactic acidosis. Patient was admitted and treated initially for the recurrent ascites. GI was consulted. Patient finished a 5-day course of empiric ceftriaxone. She had paracentesis of 2.5 L
while she was in the emergency department, and a repeat paracentesis on December 09 for 2.2 L. There were no signs of spontaneous bacterial peritonitis or positive fluid cultures. Abdominal Doppler showed occlusion of the main portal vein with
thrombus extending to the right portal vein. This was presumed to be tumor thrombus and anticoagulation was not indicated. Patient did receive 4 units of packed red blood cells and 4 units of fresh frozen plasma during her hospitalization.
Oncology, nephrology, GI were all consulted as mentioned.
On the evening of December 15, patient was found to be hypotensive and short of breath. A rapid response was called and the patient was transferred to the intensive care unit. She had significant tachypnea and shortness of breath with a pH of 6.9
and severe acidosis. Patient was intubated at that time. She received IV fluids with bicarbonate, creatinine increased. Liver function tests increased. And lactic acid was noted to be 23.9. There was also noted to be large-volume coffee-ground
emesis. Patient was started on pressor support and unfortunately was maxed out on 4 pressors. Significant concern was raised for catastrophic abdominal issue such as ischemic bowel or ruptured viscus. Antibiotics were continued, blood cultures
were checked.
Patient's significant other was informed of her critically ill status. He was waiting for family to arrive. He understood that she would not make it out of the hospital. Approximately 430 on December 16, the stitching department supervisor was notified that the
patient's family was ready to withdraw care and transition to comfort. Patient at 18:37 on December 16, 2024 with her family at the bedside.
Problem #2: All other medical issues. These include Metastatic breast cancer with recurrent malignant ascites, anemia of chronic disease, adjustment disorder with depression, malnutrition. All of these medical issues contributed to her unfortunate
demise.
Discharge Plan
-
Patient Disposition:
Date/Time
Date/Time: 12/16/24 18:37
Discharge Date and Time
Discharge Date/Time: 12/16/24 21:09
Print Language: BENGALI
--- NOTE | 2024-12-17 08:28 | CM ---
Patient on 12/16/24 @ 18:37.
== END 2024-12-16 21:09 | disposition expired | DRG 374 ==
LOC: ICU 00:26
PROVIDERS: Emergency Medicine; Internal Medicine; Internal Medicine Critical Care Medicine; Nurse Practitioner; Nurse Practitioner Family; Radiology Vascular & Interventional Radiology; Specialist; Student in an Organized Health Care Education/Training Program; ADMITTING PHYSICIAN Internal Medicine; ATTENDING PHYSICIAN Internal Medicine; CONSULT PHYSICIAN Hospitalist; CONSULT PHYSICIAN Internal Medicine; CONSULT PHYSICIAN Internal Medicine Gastroenterology; CONSULT PHYSICIAN Internal Medicine Hematology & Oncology; EMERGENCY PHYSICIAN Emergency Medicine; FAMILY PHYSICIAN Internal Medicine Hematology & Oncology
PROC: 0W9G3ZZ Drainage of Peritoneal Cavity, Percutaneous Approach (ICD-10-PCS; 2024-12-08)
PROC: 30233N1 Transfusion of Nonautologous Red Blood Cells into Peripheral Vein, Percutaneous Approach (ICD-10-PCS; 2024-12-08)
PROC: 03HB33Z Insertion of Infusion Device into Right Radial Artery, Percutaneous Approach (ICD-10-PCS; 2024-12-15)
PROC: 05HM33Z Insertion of Infusion Device into Right Internal Jugular Vein, Percutaneous Approach (ICD-10-PCS; 2024-12-15)
PROC: 30243N1 Transfusion of Nonautologous Red Blood Cells into Central Vein, Percutaneous Approach (ICD-10-PCS; 2024-12-15)
PROC: 5A1935Z Respiratory Ventilation, Less than 24 Consecutive Hours (ICD-10-PCS; 2024-12-15)
PROC: 06HY33Z Insertion of Infusion Device into Lower Vein, Percutaneous Approach (ICD-10-PCS; 2024-12-15)
PROC: 0BH18EZ Insertion of Endotracheal Airway into Trachea, Via Natural or Artificial Opening Endoscopic (ICD-10-PCS; 2024-12-15)
PROC: 02HV33Z Insertion of Infusion Device into Superior Vena Cava, Percutaneous Approach (ICD-10-PCS; 2024-12-15)
PROC: 30243K1 Transfusion of Nonautologous Frozen Plasma into Central Vein, Percutaneous Approach (ICD-10-PCS; 2024-12-15)
DX: C78.6 Secondary malignant neoplasm of retroperitoneum and peritoneum (principal); A41.9 Sepsis, unspecified organism; I81 Portal vein thrombosis; J96.01 Acute respiratory failure with hypoxia; K72.00 Acute and subacute hepatic failure without coma; R65.21 Severe sepsis with septic shock; C78.7 Secondary malignant neoplasm of liver and intrahepatic bile duct; Z66 Do not resuscitate; Z51.5 Encounter for palliative care; R18.0 Malignant ascites; E87.1 Hypo-osmolality and hyponatremia; C78.01 Secondary malignant neoplasm of right lung; E46 Unspecified protein-calorie malnutrition; E87.20 Acidosis, unspecified; K76.6 Portal hypertension; K55.9 Vascular disorder of intestine, unspecified; N17.9 Acute kidney failure, unspecified; K92.0 Hematemesis; C79.51 Secondary malignant neoplasm of bone; D68.9 Coagulation defect, unspecified; C50.919 Malignant neoplasm of unspecified site of unspecified female breast; D63.0 Anemia in neoplastic disease; Z17.0 Estrogen receptor positive status [ER+]; R00.0 Tachycardia, unspecified; F17.290 Nicotine dependence, other tobacco product, uncomplicated; K59.00 Constipation, unspecified; Z90.12 Acquired absence of left breast and nipple; Z79.899 Other long term (current) drug therapy; Z79.811 Long term (current) use of aromatase inhibitors; Z17.21 Progesterone receptor positive status; F43.21 Adjustment disorder with depressed mood; D75.839 Thrombocytosis, unspecified; Z96.89 Presence of other specified functional implants; E87.70 Fluid overload, unspecified; E87.5 Hyperkalemia; Z68.23 Body mass index [BMI] 23.0-23.9, adult; K74.60 Unspecified cirrhosis of liver
CPT/HCPCS: 49083; 71045; 71260; 74018; 74177; 76700; 76705; 80048; 80053; 80076; 80202; 81003; 81015; 82042; 82150; 82248; 82330; 82550; 82607; 82728; 82746; 82805; 82962; 83010; 83540; 83550; 83605; 83615; 83690; 83735; 83880; 83930; 83935; 84100; 84157; 84300; 84478; 85014; 85018; 85025; 85027; 85045; 85379; 85384; 85610; 85730; 86300; 86850; 86900; 86901; 86920; 87015; 87040; 87070; 87205; 87641; 88112; 88305; 88341; 88342; 88360; 89051; 93005; 93975; 94002; 94003; 96361; 96374; 99285; J2354; P9016; P9047; P9059; Q9967